=== PATIENT | female | born 1945 | race Caucasian/White ===

== ENCOUNTER 2017-06-15 20:26 | Inpatient (IN) ==
[2017-06-15 21:18] LABS: Basophils # 0.1 K/mm3 (0-0.2); Basophils % 0.7 % (0.1-2.0); Eosinophils # 0.3 K/mm3 (0.0-0.4); Eosinophils % 2.7 % (0.1-12.0); Mean Corpuscular HGB Conc 31.9 g/dL (31.8-35.4); Mean Corpuscular Hemoglobin 28.9 pg (27.0-31.2); Mean Corpuscular Volume 90.6 fl (81-99); Mean Platelet Volume 8.5 fl (7.4-10.4); Monocytes # 0.5 K/mm3 (0.1-1.0); Monocytes % 4.9 % (1.7-9.3); Neutrophils # 4.7 K/mm3 (1.8-7.8); Neutrophils % 49.8 % (37.0-80.0); Platelet Count 273 K/mm3 (142-424); Red Blood Count 5.19 M/mm3 (4.20-5.40); White Blood Count 9.5 K/mm3 (4.8-10.8)
[2017-06-15 21:38] LABS: Alanine Aminotransferase 22 U/L (12-78); Albumin Level 4.3 gm/dL (3.4-5.0); Albumin/Globulin Ratio 1.1 (1.1-1.8); Alkaline Phosphatase 84 U/L (46-116); Amylase 51 U/L (25-125); Anion Gap 13.5 mEq/L (5-15); Aspartate Amino Transferase 19 U/L (15-37); Bilirubin,Total 0.2 mg/dL (0.2-1.0); Blood Urea Nitrogen 20 mg/dL (7-18); Calcium 10.8 mg/dL (8.5-10.1); Carbon Dioxide 28 mmol/L (21.0-32.0); Chloride 103 mmol/L (98-107); Creatine Kinase 75 U/L (26-192); Globulin 3.9 gm/dl (1.3-3.2); Glucose 98 mg/dL (74-106); Lipase 166 u/L (73-393); Potassium 3.5 mmoL/L (3.5-5.1); Sodium 141 mmol/L (136-145); Total Protein,Serum 8.2 gm/dL (6.4-8.2)
--- NOTE | 2017-06-15 22:13 | Emergency Department Note ---
ED Disposition Clinical Impression: Elevated troponin I level Chest pain Qualifiers: Chest pain type: precordial pain Qualified Code(s): R07.2 - Precordial pain Hypertension Qualifiers: Hypertension type: unspecified Qualified Code(s): I10 - Essential (primary) hypertension Disposition: Admitted as Observation Condition on Discharge: Good Referrals: Boston Ziegler [Primary Care Provider] - - Critical Care Critical Care Time: No Attestation: On 06/15/17, the high probability of a clinically significant, sudden or life threatening deterioration of the following system(s) required my full and direct attention, intervention and personal management. The time I documented below is in addition to time spent performing reported procedures but includes the following listed in this critical care notation. Medical Decision Making - Medical Records Medical records reviewed: Yes: I reviewed the patient's medical records. - Mohan Inquiry Pt receiving controlled substance: No Vital Signs: 06/15/17 20:27 06/15/17 22:47 06/16/17 00:07 Temperature 98.5 F 98.7 F Temperature Source Oral Oral Pulse Rate [Left Radial] 88 76 82 Respiratory Rate 16 20 20 Blood Pressure [Right Arm] 226/116 172/98 161/76 Blood Pressure Mean [Right Arm] 152 122 104 Blood Pressure Source [Right Arm] Automatic Cuff Automatic Cuff Blood Pressure Position [Right Arm] Sitting Sitting 02 Sat by Pulse Oximetry 99 98 97 Oxygen Delivery Method Room Air Room Air - Lab Data Lab results reviewed: Yes: I reviewed the patient's lab results. Lab Results 06/15/17 20:55: WBC 9.5, RBC 5.19, Hgb 15.0, Hct 47.0, MCV 90.6, MCH 28.9, MCHC 31.9, RDW 13.0, Plt Count 273, MPV 8.5, Neut % (Auto) 49.8, Lymph % (Auto) 42.0 , Adams % (Auto) 4.9, Eos % (Auto) 2.7, Baso % (Auto) 0.7, Neut # (Auto) 4.7, Lymph # (Auto) 4.0, Adams # (Auto) 0.5, Eos # (Auto) 0.3, Baso # (Auto) 0.1 06/15/17 20:55: Sodium 141, Potassium 3.5, Chloride 103, Carbon Dioxide 28, Anion Gap 13.5, BUN 20 H, Creatinine 0.88, Estimated Creat Clear 67, Estimated GFR 63, Est GFR ( Amer) 77, Glucose 98, Calcium 10.8 H, Total Bilirubin 0.2, AST 19, ALT 22, Alkaline Phosphatase 84, Total Creatine Kinase 75, CK-MB ( CK-2) 1.2, CK-MB (CK-2) Rel Index 1.6, Troponin I < 0.02, Total Protein 8.2, Albumin 4.3, Globulin 3.9 H, Albumin/Globulin Ratio 1.1, Amylase 51, Lipase 166 06/16/17 00:15: Troponin I 0.28 H Result diagrams: 06/15/17 20:55 06/15/17 20:55 Orders (Tests/Meds): ED MEDICATIONS Generic Name Dose Route Start Last Admin Trade Name Freq PRN Reason Stop Dose Admin Nitroglycerin 0.4 mg 06/15/17 20:40 Nitrostat 0.4mg Sl Tablet SL 07/15/17 20:39 [id number] PRN Chest Pain Discontinued Medications Generic Name Dose Route Start Last Admin Trade Name Freq PRN Reason Stop Dose Admin Aspirin 243 mg 06/15/17 20:40 06/15/17 20:50 Aspirin 81mg Chewable Tablet PO 06/15/17 20:41 243 mg ONCE ONE Administration Iopamidol 75 ml 06/15/17 23:58 06/15/17 23:59 [id number]; 75ml Vial IV 06/15/17 23:59 75 ml ONCE ONE Administration Sodium Chloride 10 ml 06/15/17 23:58 06/15/17 23:59 Rad-Saline Flush 10ml Syringe IV 06/15/17 23:59 10 ml ONCE ONE Administration ORDERS Category Date Time Status CT chest w con Stat Cat Scan 06/15/17 22:15 Taken XR chest portable Stat Exams 06/15/17 20:40 Taken - Radiology Data #1 Image(s): Chest Image Reviewed: Yes I reviewed the patient's radiology image Preliminary Findings: Abnormal (sl wide mediastinum) - CT Data CT Scan: Chest Time Received: 01:[address] Reviewed: Yes: I have viewed the radiologist's interpretation Preliminary Findings: Normal/NAD - ECG Data Tracing #1 I reviewed this ECG and interpreted as documented below: Normal Sinus Rhythm: Yes Ischemic changes: non-specific ST-T wave changes - Physician Consults Physician Consulted: samantha Reason -: Admission Chest Pain HPI - General Chief Complaint: Chest Pain Stated Complaint: chest pain Time Seen by Provider: 06/15/17 22:04 Mode of Arrival: Ambulatory Source of Information: Patient, Spouse, Medical Record Limitations: No Limitations Description of Symptoms (Recalled from ER Triage Doc. by RN): chest pain/ indigestion, started about an hour ago - History of Present Illness HPI narrative: acute onset of ant to post chest pain with nausea - MD complaint: chest pain Onset (ago): hour(s) Duration: now resolved Activity at onset: during rest Pain location: epigastric Severity: moderate Quality: dull Pain radiation: back Relieving factors: nothing Exacerbating factors: nothing Risk Factors for CAD: Family Hx of CAD Treatments prior to or on arrival for Cardiac Chest Pain: none - CITLALLI Score Non-Stemi Age of patient: 65 yrs or more Number of risk factors for CAD: Presence of less than 3 Prior coronary artery stenosis(seen in coronary angiography): Less than 50% ST-Segment deviation on ECG (more than 1 min): Absent Prior aspirin intake: No ASA in the last 7 days Severe anginal chest pain: No or one episode in last 24 hours Elevated cardiac markers(CK-MB or troponin): Present Non-Stemi Risk Score: 2 - Related Data On Oral Contraceptives: No Home Medications Medication Instructions Recorded Confirmed Docusate Sodium [Colace] 100 mg PO DAILY 06/15/17 06/15/17 Allergies Allergy/AdvReac Type Severity Reaction Status Date / Time No Known Allergies Allergy Unverified 02/26/17 15:07 [facility] History I have reviewed the patient's past medical history: Yes Medical History: Denies:: Cancer, Diabetes Mellitus Type 1, Diabetes Mellitus Type 2, MRSA Amputation: No Fractures: No - Social History Alcohol Intake: current Alcohol Intake Frequency:: holidays/special occasions only - Psychiatric History Expresses thoughts of harming self/others: None Suicide Plan Description: No Plan ROS Obtained: Yes All systems reviewed & no additional complaints - Constitutional Constitutional: Denies fever(s) - Eyes Eyes: Denies change in vision - ENT Ears, Nose, Mouth, and Throat: Denies sore throat - Cardiovascular Cardiovascular: Reports chest pain at rest - Respiratory Respiratory: No cough - Gastrointestinal Gastrointestingal: Denies: abdominal pain - Musculoskeletal Musculoskeletal: Denies joint pain - Integumentary/Breasts Skin/Breast: Denies rash - Neurologic Neurologic: Denies seizure-like activity Physical Exam - General General appearance: in no apparent distress - Head Head exam: normocephalic - Eye Eye exam: Present: PERRL, EOMI - ENT ENT exam: Present: mucous membranes moist - Neck Neck exam: Present: trachea midline - Respiratory Respiratory exam: Present: normal lung sounds bilaterally. Absent: respiratory distress - Cardiovascular Cardiovascular exam: Present: regular rate, systolic murmur, +S4 - Abdominal Exam Abdominal exam: Present: soft - Extremities Exam Extremities exam: Present: full ROM - Neurological Exam Neurological exam: Present: alert, oriented X3, CN II-XII intact - Psychiatric Psychiatric exam: Present: normal affect - Skin Skin exam: Absent: rash
[2017-06-16 05:51] LABS: Basophils # 0.1 K/mm3 (0-0.2); Basophils % 0.7 % (0.1-2.0); Eosinophils # 0.1 K/mm3 (0.0-0.4); Eosinophils % 1.3 % (0.1-12.0); Hematocrit 44.2 % (37.0-47.0); Hemoglobin 14.1 g/dL (12.2-16.2); Lymphocytes # 2.2 K/mm3 (0.7-4.5); Lymphocytes % 24.3 K/mm3 (10-50); Mean Corpuscular HGB Conc 31.9 g/dL (31.8-35.4); Mean Platelet Volume 8.5 fl (7.4-10.4); Monocytes # 0.5 K/mm3 (0.1-1.0); Monocytes % 5.3 % (1.7-9.3); Neutrophils # 6.1 K/mm3 (1.8-7.8); Neutrophils % 68.4 % (37.0-80.0); Platelet Count 284 K/mm3 (142-424); Red Blood Count 4.86 M/mm3 (4.20-5.40); White Blood Count 8.9 K/mm3 (4.8-10.8)
[2017-06-16 06:32] LABS: Anion Gap 12.5 mEq/L (5-15); Potassium 4.5 mmoL/L (3.5-5.1)
[2017-06-16 07:00] LABS: Chol/HDL Ratio 4.1 (1-3.5)
--- NOTE | 2017-06-16 07:59 | History & Physical Report ---
*Admission Date: 06/16/17 *Chief complaint: Chest pain *History of present illness: 72-year-old white female with no significant past medical history, takes no medications, who came to the emergency department early this morning with complaints of fluttering and chest pain and some shortness of air. EKGs and general labs were unremarkable, but troponin level was slightly elevated. Given her character of the pain patient was admitted overnight. Through the night her enzymes have elevated and this morning her troponin is 0.99. She however continues to feel fairly comfortable although is having twinges of pressure. [facility] History I have reviewed the patient's past medical history: Yes Medical History: Denies:: Cancer, Diabetes Mellitus Type 1, Diabetes Mellitus Type 2, MRSA Other Surgeries: Yes: Appendectomy, Other (tonsilectomy) Amputation: No Fractures: No - *Social History Educational Level: Attended College Smoking Status: Former smoker Tobacco Type: cigarettes #Yrs smoked (if former smoker): 20 Smoking End Date: 1994 Alcohol Intake: current Alcohol Intake Frequency:: holidays/special occasions only Occupational Status: retired Housing: house Household Members: spouse - Psychiatric History Expresses thoughts of harming self/others: None Suicide Plan Description: No Plan *Family Hx:: Cancer, Stroke Review of Systems - Review of Systems Review of systems:: unable to obtain, other, pertinent systems reviewed and negative unless documented below - *Neurologic Denies seizure-like activity Meds Home Medications Medication Instructions Recorded Confirmed Type Docusate Sodium [Colace] 100 mg PO DAILY 06/15/17 06/16/17 History Allergies Allergy/AdvReac Type Severity Reaction Status Date / Time No Known Allergies Allergy Unverified 02/26/17 15:07 Exam Vital signs and Labs for Last 24 Hours: Temp Pulse Resp BP Pulse Ox 98.3 F 63 16 120/64 97 06/16/17 03:46 06/16/17 04:00 06/16/17 03:46 06/16/17 03:46 06/16/17 03:46 Laboratory Results - last 24 hr 06/16/17 05:10: Sodium 142, Potassium 4.5 D, Chloride 105, Carbon Dioxide 29, Anion Gap 12.5, BUN 16, Creatinine 0.74, Estimated Creat Clear 70, Estimated GFR 77, Est GFR ( Amer) 94 D, Glucose 102, Troponin I 0.99 H, Triglycerides 73, Cholesterol 243 H, LDL Cholesterol 169 H, VLDL Cholesterol 15 , HDL Cholesterol 59, Cholesterol/HDL Ratio 4.1 H 06/16/17 05:10: WBC 8.9, RBC 4.86, Hgb 14.1, Hct 44.2, MCV 91.0, MCH 29.0, MCHC 31.9, RDW 13.0, Plt Count 284, MPV 8.5, Neut % (Auto) 68.4, Lymph % (Auto) 24.3 , [place] % (Auto) 5.3, Eos % (Auto) 1.3, Baso % (Auto) 0.7, Neut # (Auto) 6.1, Lymph # (Auto) 2.2, [place] # (Auto) 0.5, Eos # (Auto) 0.1, Baso # (Auto) 0.1 I & O for Last 24 hours: Intake & Output 06/13/17 06/14/17 06/15/17 06/16/17 11:59 11:59 11:59 11:59 Intake Total 180 / 180 Balance 180 / 180 Weight 189 lb 2 oz Narrative: Patient is pleasant, talkative, in no distress, minimally obese. Heart rate regular, occasional ectopic beats. EKG shows frequent PVCs this morning, lungs are clear, abdomen soft, no ankle edema. Good pulses in all 4 extremities. H&P: Result - Labs Labs: Short CBC 06/16/17 Range/Units 05:10 WBC 8.9 (4.8-10.8) K/mm3 Hgb 14.1 (12.2-16.2) g/dL Hct 44.2 (37.0-47.0) % Plt Count 284 (142-424) K/mm3 BMP 06/16/17 05:10 Sodium 142 Potassium 4.5 D Chloride 105 Carbon Dioxide 29 BUN 16 Creatinine 0.74 Glucose 102 Cardiac Enzymes 06/16/17 Range/Units 05:10 Troponin I 0.99 H (0.00-0.06) ng/ml Assessment and Plan (1) Non-STEMI (non-ST elevated myocardial infarction) Current visit: Yes Status: Acute Category: Medical Code(s): I21.4 - Non- ST elevation (NSTEMI) myocardial infarction Non-STEMI now with EKG changes and continuing pain. Cardiology consult for left heart catheterization.
--- NOTE | 2017-06-16 13:31 | Pharmacy Consult Notes ---
[facility] Pharmacy VTE Monitoring - Patient Demographics Admission date: 06/16/17 Report Date: 06/16/17 Time: 13:31 Allergies/Adverse Reactions: Patient Allergies No Known Allergies Allergy (Unverified 02/26/17 15:07) Height: 1.57 m Weight: 85.786 kg Patient Problems: Current Active Problems Chest pain (Acute) Elevated troponin I level (Acute) Hypertension (Acute) Non-STEMI (non-ST elevated myocardial infarction) (Acute) - VTE Risk Labs: VTE Related Lab Results Hgb 14.1 g/dL (12.2-16.2) 06/16/17 05:10 Hct 44.2 % (37.0-47.0) 06/16/17 05:10 Plt Count 284 K/mm3 (142-424) 06/16/17 05:10 BUN 16 mg/dL (7-18) 06/16/17 05:10 Creatinine 0.74 mg/dL (0.55-1.02) 06/16/17 05:10 Estimated Creat Clear 70 mL/min (0-300) 06/16/17 05:10 Was VTE Risk Assessment Performed: Yes VTE Score: 2 - Prophylaxis VTE Prophylaxis Ordered?: Yes Types of VTE Prophylaxis: TEDS Knee High Location of Applied Device: Bilateral Lower Extremeties
--- NOTE | 2017-06-17 08:41 | Discharge Summary ---
General - General Admission date: 06/16/17 Discharge date: 06/17/17 HPI HPI: 72-year-old white female with no significant past medical history, takes no medications, who came to the emergency department early this morning with complaints of fluttering and chest pain and some shortness of air. EKGs and general labs were unremarkable, but troponin level was slightly elevated. Given her character of the pain patient was admitted overnight. Through the night her enzymes have elevated and this morning her troponin is 0.99. She however continues to feel fairly comfortable although is having twinges of pressure. Hospital Course Hospital Course: Patient was admitted, ruled in for myocardial infarction with elevated troponin and evidence of PVCs. Taken to cardiac catheterization the day after admission. Please note assessment and plan from cardiology as copied in the document below.: ANGIOGRAPHIC RESULTS: 1. The left main artery normal 2. The left anterior descending artery has proximal concentric 80% stenosis which extends into the first diagonal artery. Distal to the first diagonal artery is a 40-50% stenosis followed by an additional 30-40% stenosis. The mid LAD is corkscrew tortuous vessel. The first diagonal artery is a large branch and has an ostial 90% stenosis with a ruptured plaque and evidence of clot. 3. The circumflex artery is a large nondominant vessel and has proximal 30% stenoses 4. The right coronary artery is a large dominant vessel and has an ostial 80% stenosis. This vessel has 30-40% eccentric stenoses 5. The TUCKER ventriculogram reveals normal 65% 6. The left ventricular end-diastolic pressure 10 mmHg IMPRESSION: 1. Severe proximal LAD disease extending into the large first diagonal artery 2. Severe ostial dominant right coronary artery disease 3. Successful stenting of the proximal to mid LAD severe disease reduced to 0% with 1 drug-eluting stent with successful stenting from the proximal LAD extending into the first diagonal artery and a bifurcating manner 4. Successful stenting of the ostial dominant right coronary artery severe disease reduced to 0% with 1 drug-eluting stent 5. Normal ejection fraction 6. Normal left ventricular end-diastolic pressure 7. Mild to moderate persistent nonflow limiting disease PLAN: 1. Brilinta 90 mg twice a day and aspirin 81 mg daily for one year 2. LDL less than 55 3. Cardiac rehabilitation 4. Avoidance of tobacco products 5. Risk factor modification 6. Beta blockers and jessy inhibitors Patient did well post-cath, this morning she is doing fantastic. We will discharge her home with medicines as recommended above. I will only start low- dose JESSY inhibitor given her low blood pressure, in the future beta-blockers may be added. She will see her primary physician this week and cardiology next week. Objective Vital signs: Temp Pulse Resp BP Pulse Ox 98 F 73 20 98/56 97 06/17/17 04:00 06/17/17 07:38 06/17/17 07:32 06/17/17 07:32 06/17/17 07:38 Narrative: Alert, pleasant, oriented, abdomen soft, heart rate regular, lungs are clear, no edema. DS: Diagnosis - Discharge Diagnosis (1) Non-STEMI (non-ST elevated myocardial infarction) Status: Acute Discharge Plan - Patient Discharge Instructions ACTIVITY: Continue current activity, No heavy lifting DIET: continue same diet Patient Instructions: Heart Attack, Cardiac Catheterization, High Blood Pressure, DI for Chest Pain, Surgical Site Infection - Follow up Plan Follow up with: Boston Ziegler [Primary Care Provider] - 06/20/17 Britton Cali MD [Staff Physician] - 1 week Disposition: Home, Self-Custodial Medications: Home Medications Medication Instructions Recorded Confirmed Type Docusate Sodium [Colace] 100 mg PO DAILY 06/15/17 06/16/17 History Amoxicillin [Amoxicillin 875MG Tab] 875 mg PO Q12H 06/17/17 06/17/17 History Prescriptions/Medication Reconciliation: New Atorvastatin Calcium [Lipitor 40mg Tablet] 40 mg PO HS #30 tab Lisinopril [Lisinopril 2.5mg Tab] 2.5 mg PO DAILY #30 tab Pantoprazole Sodium [Protonix 40mg tablet] 40 mg PO DAILY #30 tablet. Ticagrelor [Brilinta 90mg Tablet] 90 mg PO BID #60 tab Aspirin [Aspirin 81mg EC Tab] 81 mg PO DAILY #30 tablet.dr Celis Docusate Sodium [Colace] 100 mg PO DAILY Discontinued Amoxicillin [Amoxicillin 875MG Tab] 875 mg PO Q12H
--- NOTE | 2017-06-17 09:01 | Consult Report ---
History of Present Illness Consult date: 06/17/17 Requesting physician: Jose Schmid Consult reason: chest pain Chief complaint: Chest pain Additional Medical History:: 1. Tobacco use a. Ex-smoker: stopped in 1993. 2. History of Hyperlipidemia a. Taken statins in past: developed muscle aches, but is willing to re-try 3. History of Rheumatic fever (childhood) 4. No history of Hypertension or Coronary Artery Disease. 5. Heart catherization (06/16/17) ANGIOGRAPHIC RESULTS: 1. The left main artery normal 2. The left anterior descending artery has proximal concentric 80% stenosis which extends into the first diagonal artery. Distal to the first diagonal artery is a 40-50% stenosis followed by an additional 30-40% stenosis. The mid LAD is corkscrew tortuous vessel. The first diagonal artery is a large branch and has an ostial 90% stenosis with a ruptured plaque and evidence of clot. 3. The circumflex artery is a large nondominant vessel and has proximal 30% stenoses 4. The right coronary artery is a large dominant vessel and has an ostial 80% stenosis. This vessel has 30-40% eccentric stenoses 5. The TUCKER ventriculogram reveals normal 65% 6. The left ventricular end-diastolic pressure 10 mmHg IMPRESSION: 1. Severe proximal LAD disease extending into the large first diagonal artery 2. Severe ostial dominant right coronary artery disease 3. Successful stenting of the proximal to mid LAD severe disease reduced to 0% with 1 drug-eluting stent with successful stenting from the proximal LAD extending into the first diagonal artery and a bifurcating manner 4. Successful stenting of the ostial dominant right coronary artery severe disease reduced to 0% with 1 drug-eluting stent 5. Normal ejection fraction 6. Normal left ventricular end-diastolic pressure 7. Mild to moderate persistent nonflow limiting disease PLAN: 1. Brilinta 90 mg twice a day and aspirin 81 mg daily for one year 2. LDL less than 55 3. Cardiac rehabilitation 4. Avoidance of tobacco products 5. Risk factor modification 6. Beta blockers and pat inhibitors History of present illness: 72-year-old white female admitted 06/15/17 through the Emergency department for chest pain. Pt vague in her description of the chest pain episode. Pt complained fluttering feeling in her chest along with shortness of breath. Pt has no significant medical history nor daily medication regimen. EKGs on admission was unremarkable. Troponin level was slightly elevated at 0.99. Given her episode of chest pain and slightly elevated Troponin, pt was admitted over night for further evaluation. Heart catherization was performed on pt, follow day (06/16/17) which revealed three multi-vessel stenting. 24 hours after stenting, pt is doing well. Pt denies chest pain or shortness of breath. Right radial access noted with no swelling or drainage. Pt denies pain at the site of access. [facility] History Medical History: Denies:: Cancer, Diabetes Mellitus Type 1, Diabetes Mellitus Type 2, MRSA Other Surgeries: Yes: Appendectomy, Other (tonsilectomy) Amputation: No Fractures: No - *Social History Educational Level: Attended College Smoking Status: Former smoker Tobacco Type: cigarettes #Yrs smoked (if former smoker): 20 Smoking End Date: 1994 Alcohol Intake: current Alcohol Intake Frequency:: holidays/special occasions only Occupational Status: retired Housing: house Household Members: spouse - Psychiatric History Expresses thoughts of harming self/others: None Suicide Plan Description: No Plan *Family Hx:: Cancer, Stroke Meds Home Medications Medication Instructions Recorded Confirmed Type Docusate Sodium [Colace] 100 mg PO DAILY 06/15/17 06/16/17 History Allergies Allergy/AdvReac Type Severity Reaction Status Date / Time No Known Allergies Allergy Unverified 02/26/17 15:07 Review of Systems - Constitutional Reports fatigue, Reports weakness - *Cardiovascular Reports chest pain, Reports shortness of breath, Reports shortness of breath with activity, Denies generalized swelling, Denies lightheadedness - *Respiratory Reports shortness of breath, Reports shortness of breath with activity, Denies cough, Denies stridor, Denies wheezing - *Gastrointestinal Denies abdominal pain - *Neurologic Denies dizziness, Denies lack of coordination, Denies seizure-like activity Exam Vital signs and Labs for Last 24 Hours: Temp Pulse Resp BP Pulse Ox 98 F 73 20 98/56 97 06/17/17 04:00 06/17/17 07:38 06/17/17 07:32 06/17/17 07:32 06/17/17 07:38 I & O for Last 24 hours: Intake & Output 06/14/17 06/15/17 06/16/17 06/17/17 23:59 23:59 23:59 23:59 Intake Total 600 / 780 780 / 780 Output Total 250 / 250 300 / 300 Balance 350 / 530 480 / 480 Weight 189 lb 2 oz 189 lb 1 oz - Constitutional no acute distress, average body habitus - *Routine Neck Exam Present: supple, full ROM, normal carotid upstroke, trachea midline. Absent: JVD, carotid bruit - *Routine Respiratory Exam Present: CTA bilaterally. Absent: rhonchi, stridor, wheezes, crackles - *Routine Cardiovascular Exam Present: Normal S1, Normal S2. Absent: murmur, gallop, rubs - *Routine Abdominal Exam Present: soft. Absent: tenderness, guarding - *Routine Extremities Exam Present: full ROM, pulses intact, normal capillary refill. Absent: edema - *Routine Neurological Exam Present: alert, oriented X3, CN II-XII intact, normal speech. Absent: tremors Assessment and Plan (1) Non-STEMI (non-ST elevated myocardial infarction) Current visit: Yes Status: Acute Category: Medical Code(s): I21.4 - Non- ST elevation (NSTEMI) myocardial infarction (2) Hyperlipidemia Current visit: Yes Status: Acute Category: Medical Code(s): E78.5 - Hyperlipidemia, unspecified - Assessment and plan all Dx Assessment and Plan for all problems:: Plan: 1. Continue dual anti-coagulant therapy (Aspirin and Brilanta). 2. Add statin to daily regimen for Hyperlipidemia. 3. Follow up in one week with Cardiology. 4. Recommend cardiac rehab. 5. Obtain Echocardigram on outpatient bases.
== END 2017-06-17 09:53 | disposition home or self-care (01) ==
LOC: 2ND 20:26 → ER 20:26 → 2ND 06-16 01:28
PROVIDERS: ADMIT Internal Medicine Adolescent Medicine; ATTEND Internal Medicine Adolescent Medicine

== ENCOUNTER 2017-06-27 10:27 | Outpatient (RCR) | payer MEDICARE, OTHER, SELFPAY | END 2017-08-26 14:55 | disposition home or self-care (01) | LOC: PT 10:27 | PROVIDERS: Family Provider Internal Medicine; PCP Internal Medicine; Visit Provider Internal Medicine | DX: Z95.5 Presence of coronary angioplasty implant and graft (principal) | CPT/HCPCS: 93798 ==

== ENCOUNTER → 2017-06-29 10:34 | Outpatient (CLI) | payer MEDICARE, OTHER, SELFPAY ==
[2017-06-29 11:04] LABS: Troponin I < 0.02 ng/ml (0.00-0.06)
== END ==
PROVIDERS: PCP Internal Medicine; Visit Provider Internal Medicine
DX: R07.9 Chest pain, unspecified (principal); I25.10 Atherosclerotic heart disease of native coronary artery without angina pectoris; Z95.5 Presence of coronary angioplasty implant and graft
CPT/HCPCS: 36415; 84484; 93005

== ENCOUNTER → 2017-07-25 07:48 | Outpatient (CLI) | payer MEDICARE, OTHER, SELFPAY ==
--- NOTE | 2017-07-25 09:18 | NM_ITS ---
History and Indications: Coronary disease, previous [place], hypertension, hyperlipidemia, chest pain, palpitations and fatigue Procedure: Patient received a 0.4 mg Lexiscan, resting blood pressure was 150/53, resting heart rate was 67 bpm, with Lexiscan maximum heart rate achieved was 91 bpm which is less than 85% of the maximum predicted heart rate and a blood pressure was 129/54. With Lexiscan patient complained of shortness of breath. Electrocardiogram: Resting echocardiogram showed sinus rhythm, with Lexiscan treatment premature ventricular complex seen, less than 1.[address] segment depression noted from the baseline EKG. The EKG portion of the Lexiscan Myoview is nondiagnostic. Cardiac stress and resting SPECT images: Cardiac stress and resting SPECT images were obtained using technetium 99 Myoview 31.7 mCi at stress gated 10.3 mCi at rest, gated SPECT further analysis of segmental wall motion and calculation of the ejection fraction also done. Cardiac stress and rest SPECT images show uniform myocardial activity without any segmental perfusion abnormality, computer derived ejection fraction over 65% with no obvious regional wall motion abnormality, right ventricle is normal size and contractility. Conclusion: 1. The EKG portion of the Lexiscan Myoview is nondiagnostic. 2. No obvious scintigraphic evidence of reversible ischemia seen, computer derived ejection fraction is over 65% with no obvious regional wall motion abnormality, right ventricle is normal size and contractility.
--- NOTE | 2017-07-25 10:35 | HMH.ITSHM ---
ALVIN ASA ATORVASATATIN LISINOPRIL METOPROLOL AMLODIPINE
== END ==
PROVIDERS: Family Provider Internal Medicine; PCP Internal Medicine; Visit Provider Internal Medicine
DX: I25.10 Atherosclerotic heart disease of native coronary artery without angina pectoris (principal); I11.9 Hypertensive heart disease without heart failure; E78.5 Hyperlipidemia, unspecified; Z95.5 Presence of coronary angioplasty implant and graft; Z86.79 Personal history of other diseases of the circulatory system
CPT/HCPCS: 78452; 93017; A9502; J2785

== ENCOUNTER → 2017-07-29 15:08 | Outpatient (REF) | payer MEDICARE, OTHER, SELFPAY | LOC: LAB 15:08 | PROVIDERS: Visit Provider Obstetrics & Gynecology | DX: R10.9 Unspecified abdominal pain (principal) | CPT/HCPCS: 87086 ==

== ENCOUNTER → 2017-10-23 11:04 | Outpatient (REF) | payer MEDICARE, OTHER, SELFPAY ==
[2017-10-23 11:58] LABS: Alanine Aminotransferase 26 U/L (12-78); Albumin Level 3.9 gm/dL (3.4-5.0); Albumin/Globulin Ratio 1.4 (1.1-1.8); Alkaline Phosphatase 75 U/L (46-116); Anion Gap 13.7 mEq/L (5-15); Aspartate Amino Transferase 14 U/L (15-37); Bilirubin,Total 0.5 mg/dL (0.2-1.0); Blood Urea Nitrogen 19 mg/dL (7-18); Carbon Dioxide 27 mmol/L (21.0-32.0); Chloride 107 mmol/L (98-107); Chol/HDL Ratio 2.8 (1-3.5); Cholesterol 135 mg/dL (140-200); Estimated Glomerular Filt Rate 62 ml/min (>60); GFR (African American) 75 ML/MIN (>60); Globulin 2.8 gm/dl (1.3-3.2); Glucose 84 mg/dL (74-106); HDL Cholesterol 49 mg/dL (29-89); LDL Cholesterol 71 mg/dL (0-130); Potassium 4.7 mmoL/L (3.5-5.1); Sodium 143 mmol/L (136-145); Total Protein,Serum 6.7 gm/dL (6.4-8.2); Triglycerides 73 mg/dL (30-200); VLDL Cholesterol 15 mg/dL (0-40)
[2017-10-24 10:14] LABS: Vitamin B12 335 pg/mL (232-1245)
== END ==
LOC: LAB 11:04
PROVIDERS: Visit Provider Internal Medicine
DX: I10 Essential (primary) hypertension (principal); E78.5 Hyperlipidemia, unspecified; M15.0 Primary generalized (osteo)arthritis; M47.812 Spondylosis without myelopathy or radiculopathy, cervical region
CPT/HCPCS: 80053; 80061; 82607; 84443

== ENCOUNTER → 2017-10-29 16:16 | Outpatient (CLI) | payer MEDICARE, OTHER, SELFPAY | PROVIDERS: PCP Internal Medicine; Visit Provider Internal Medicine | DX: I25.118 Atherosclerotic heart disease of native coronary artery with other forms of angina pectoris (principal); I11.9 Hypertensive heart disease without heart failure; I49.3 Ventricular premature depolarization; I49.9 Cardiac arrhythmia, unspecified; Z95.5 Presence of coronary angioplasty implant and graft | CPT/HCPCS: 93225; 93226 ==

== ENCOUNTER → 2017-11-01 08:27 | Outpatient (CLI) | payer MEDICARE, OTHER, SELFPAY ==
--- NOTE | 2017-11-01 08:29 | CA_ITS ---
PROCEDURE: 2-D M-mode and color Doppler study INDICATIONS FOR THE TEST: Chest pain COPD Heart MurmurX Tobacco Smoking Palpitations Fatigue Syncope Edema HypertensionXXDiabetes Mellitus Rheumatic FeverX SOB YANEZ Obesity HyperlipidemiaX Family History HD Additional History CAD, STENTS 06/26,BIGEMINY PATIENT INFORMATION HEIGHT: 62 WEIGHT:175 GENDER: Female B/P:144/71 2-D/M-MODE INTERPRETATION: 2-D MEASUREMENTS OBSERVED VALUES IN CMS Right Ventricular Dimension (RVDd) 1.6 Interventricular Septum (Thickness)(IVsd) .9 Left Ventricular Internal Dimensions(LVIDd) 5.5 Left Ventricular Posterior Wall (Thickness)(LVPWd) .9 Aortic Root 3.1 Aortic Cusp Separation 1.4 Left Atrial Dimensions (LAD) 3.5 2D 1. Left atrium is mildly enlarged, left ventricle is normal size, left ventricle wall thickness is upper limit of the normal, there is preserved left ventricular systolic function, visually estimated ejection fraction 55% with no obvious regional wall motion abnormality. 2. The right atrium and right ventricle are qualitatively mildly enlarged with normal contractility. 3. The aortic valve is minimally thickened and fibrosed. 4. The mitral and tricuspid valve leaflets are minimally thickened. 5. The pulmonic valve is poorly visualized. 6. No significant pericardial effusion noted. DOPPLER INTERROGATION: Doppler interrogation of the aortic, mitral and tricuspid valve reveals presence of mild mitral and tricuspid regurgitation, tricuspid regurgitation jet velocity is insufficient for calculation of the right ventricular systolic pressure, grade 1 diastolic dysfunction seen without tissue Doppler evidence of raised left atrial pressure. CONCLUSION: 1. Mildly enlarged left atrium, normal left ventricular size, visually estimated ejection fraction 55% with no obvious regional wall motion abnormality, grade 1 diastolic dysfunction seen without tissue Doppler evidence of raised left atrial pressure. 2. Mildly enlarged right ventricle with normal contractility. 3. Mild mitral and tricuspid regurgitation 4. No significant pericardial effusion noted.
== END ==
PROVIDERS: Family Provider Internal Medicine; PCP Internal Medicine; Visit Provider Internal Medicine
DX: I25.118 Atherosclerotic heart disease of native coronary artery with other forms of angina pectoris (principal)
CPT/HCPCS: 93306

== ENCOUNTER → 2018-06-25 10:03 | Outpatient (CLI) | payer MEDICARE, OTHER, SELFPAY | PROVIDERS: PCP Internal Medicine; Visit Provider Internal Medicine Cardiovascular Disease | DX: I25.118 Atherosclerotic heart disease of native coronary artery with other forms of angina pectoris (principal) | CPT/HCPCS: 93306 ==

== ENCOUNTER 2018-07-13 21:18 | Observation (INO) ==
[2018-07-13 21:32] LABS: Basophils # 0.1 K/mm3 (0-0.2); Basophils % 0.6 % (0.1-2.0); Eosinophils # 0.3 K/mm3 (0.0-0.4); Eosinophils % 3.3 % (0.1-12.0); Hemoglobin 12.5 g/dL (12.2-16.2); Lymphocytes # 3.8 K/mm3 (0.7-4.5); Lymphocytes % 41.1 % (10-50); Mean Corpuscular HGB Conc 32.8 g/dL (31.8-35.4); Mean Corpuscular Hemoglobin 29.5 pg (27.0-31.2); Mean Corpuscular Volume 89.8 fl (81-99); Mean Platelet Volume 8.3 fl (7.4-10.4); Monocytes # 0.5 K/mm3 (0.1-1.0); Monocytes % 5.7 % (1.7-9.3); Neutrophils # 4.5 K/mm3 (1.8-7.8); Neutrophils % 49.2 % (37.0-80.0); Platelet Count 245 K/mm3 (142-424); Red Blood Count 4.23 M/mm3 (4.20-5.40); White Blood Count 9.1 K/mm3 (4.8-10.8)
[2018-07-13 21:48] LABS: Alanine Aminotransferase 28 U/L (12-78); Albumin/Globulin Ratio 1.2 (1.1-1.8); Alkaline Phosphatase 73 U/L (46-116); Anion Gap 11.5 mEq/L (5-15); Aspartate Amino Transferase 16 U/L (15-37); Bilirubin,Total 0.3 mg/dL (0.2-1.0); Blood Urea Nitrogen 28 mg/dL (7-18); C-Reactive Protein 0.5 mg/L (0.0-0.9); Calcium 9.1 mg/dL (8.5-10.1); Carbon Dioxide 28 mmol/L (21.0-32.0); Chloride 105 mmol/L (98-107); Globulin 3.4 gm/dl (1.3-3.2); Glucose 103 mg/dL (74-106); Potassium 3.5 mmoL/L (3.5-5.1); Sodium 141 mmol/L (136-145); Total Protein,Serum 7.4 gm/dL (6.4-8.2)
--- NOTE | 2018-07-13 22:26 | Emergency Department Note ---
ED Disposition Clinical Impression: Hypertensive emergency, TIA (transient ischemic attack) Obesity Qualifiers: Obesity type: due to excess calories Obesity classification: adult class 1 (BMI 30 - 34.9) Serious obesity comorbidity presence: with serious comorbidity Body mass index: BMI 31.0-31.9 Qualified Code(s): E66.09 - Other obesity due to excess calories Disposition: Admitted as Observation Condition on Discharge: Good - Critical Care Critical Care Time: No Attestation: On 07/13/18, the high probability of a clinically significant, sudden or life threatening deterioration of the following system(s) required my full and direct attention, intervention and personal management. The time I documented below is in addition to time spent performing reported procedures but includes the following listed in this critical care notation. Medical Decision Making - Medical Records Medical records reviewed: Yes: I reviewed the patient's medical records. - Mohan Inquiry Pt receiving controlled substance: No Vital Signs: 07/13/18 22:03 Temperature 97.8 F Temperature Source Oral Pulse Rate [Right] 77 Respiratory Rate 18 Blood Pressure [Right Arm] 153/118 H Blood Pressure Mean [Right Arm] 129 Blood Pressure Source [Right Arm] Automatic Cuff Blood Pressure Position [Right Arm] Supine 02 Sat by Pulse Oximetry 98 Oxygen Delivery Method Room Air - Lab Data Lab results reviewed: Yes: I reviewed the patient's lab results. Lab Results 07/13/18 21:25: WBC 9.1, RBC 4.23, Hgb 12.5, Hct 38.0, MCV 89.8, MCH 29.5, MCHC 32.8, RDW 13.0, Plt Count 245, MPV 8.3, Neut % (Auto) 49.2, Lymph % (Auto) 41.1, [place] % (Auto) 5.7, Eos % (Auto) 3.3, Baso % (Auto) 0.6, Neut # (Auto) 4.5, Lymph # (Auto) 3.8, [place] # (Auto) 0.5, Eos # (Auto) 0.3, Baso # (Auto) 0.1 07/13/18 21:25: Sodium 141, Potassium 3.5, Chloride 105, Carbon Dioxide 28, Anion Gap 11.5, BUN 28 H, Creatinine 0.84, Estimated Creat Clear 63, Estimated GFR 67, Est GFR ( Amer) 81, Glucose 103, Calcium 9.1, Total Bilirubin 0.3, AST 16, ALT 28, Alkaline Phosphatase 73, Troponin I < 0.02, C-Reactive Protein 0.5, Total Protein 7.4, Albumin 4.0, Globulin 3.4 H, Albumin/Globulin Ratio 1.2 Result diagrams: 07/13/18 21:25 07/13/18 21:25 Orders (Tests/Meds): ED MEDICATIONS Generic Name Dose Route Start Last Admin Trade Name Freq PRN Reason Stop Dose Admin Sodium Chloride 1,000 mls @ 999 mls/hr 07/13/18 21:30 07/13/18 21:35 Sod Chlor 0.9% 1000ml Bag IV 07/13/18 22:30 999 mls/hr .Q1H1M SHAYLEE Administration Discontinued Medications Generic Name Dose Route Start Last Admin Trade Name Freq PRN Reason Stop Dose Admin Aspirin 324 mg 07/13/18 21:22 07/13/18 21:35 Aspirin 81mg Chewable Tablet PO 07/13/18 21:23 324 mg ONCE ONE Administration Ketorolac Tromethamine 30 mg 07/13/18 21:23 07/13/18 21:35 Toradol 30mg/Ml Vial IV 07/13/18 21:24 30 mg ONCE ONE Administration Ondansetron HCl 4 mg 07/13/18 21:23 07/13/18 21:35 Zofran 4mg/2ml Vial IV 07/13/18 21:24 4 mg ONCE ONE Administration ORDERS Category Date Time Status CT head/brain wo con Stat Cat Scan 07/13/18 21:26 Taken Chest XR 2 view (NOT portable) [XR chest 2V] Stat Exams 07/13/18 21:21 Taken - Radiology Data #1 Image(s): Chest Image Reviewed: Yes I reviewed the patient's radiology image Preliminary Findings: Normal/NAD - CT Data CT Scan: Head Time Received: 22:[address] Reviewed: Yes: I have viewed the radiologist's interpretation Preliminary Findings: Normal/NAD - ECG Data Tracing #1 Normal Sinus Rhythm: Yes Arrhythmias present: PVC's Ischemic changes: non-specific ST-T wave changes ECG compared to prior tracings: there are no significant changes - Physician Consults Physician Consulted: artemio Reason -: Admission Neuro HPI - General Chief Complaint: Extremity Problem,Nontraumatic Stated Complaint: Numbness in Hands Time Seen by Provider: 07/13/18 22:20 Mode of Arrival: Wheelchair Source of Information: Patient, Spouse, Medical Record Limitations: No Limitations Description of Symptoms (Recalled from ER Triage Doc. by RN): Pt states she is having HTN, Nausea, with bilat hand numbness - History of Present Illness HPI Narrative: pt with episode of bilat forearm tightness and tingling in hand assoc with elevated bp at home but no chest pain - no speech sx and no visual sx and no motor loss - no fever/rash or trauma - no prev episodes Onset (ago): hour(s) Timing confirmed by: spouse Location: left arm, right arm History of same: No Severity: moderate Context: sudden onset On Anticoagulants: Yes Associated symptoms: denies other symptoms Treatments Prior to Arrival: none - Related Data Home Medications: Home Medications Medication Instructions Recorded Confirmed Aspirin [Aspirin 81mg EC Tab] 81 mg PO DAILY 06/19/17 07/13/18 Lisinopril [Lisinopril 2.5mg Tab] 2.5 mg PO DAILY 06/19/17 07/13/18 docusate sodium 100 mg capsule 100 mg PO QHS 06/25/17 07/13/18 Bisoprolol Fumarate [Bisoprolol 2.5 mg PO DAILY 01/28/18 07/13/18 5mg Tablet] Clopidogrel Bisulfate [Plavix 75mg 75 mg PO DAILY 01/28/18 07/13/18 Tab] pantoprazole 40 mg tablet,delayed 40 mg PO .every other day tab 06/19/18 07/13/18 release atorvastatin 10 mg tablet 20 mg PO DAILY tab 07/10/18 07/13/18 Allergies/Adverse Reactions: Allergies Allergy/AdvReac Type Severity Reaction Status Date / Time No Known Allergies Allergy Verified 07/10/18 11:51 Stroke Alert/NIH Score - LOC Stroke Alert: No [facility] History - Hepatitis A Screen Drug use history?: No High risk sexual behaviors?: No History of sexually transmitted infection?: No Currently employed?: No Childcare worker?: No Do you have indoor plumbing?: Yes Do you have electricity?: Yes Attestation statement:: This patient has been screened for Hepatitis A risk factors. I have reviewed the patient's past medical history: Yes Medical History: Reports:: Coronary Artery Disease, Heart Murmur, Hyperlipidemia, Hypertension Denies:: Anxiety, Asthma, Cancer, Diabetes Mellitus Type 1, Diabetes Mellitus Type 2, MRSA Comment: heart attack , 06/16/17, right shoulder tear, repair and left knee repair Laterality Cases: Left: Lumpectomy, Right: Arthroscopy Shoulder, Bilateral: Tonsillectomy Other Surgeries: Yes: Appendectomy, Cardiac Catheterization, Coronary Stent, Hysterectomy-Total, Other Amputation: No Fractures: No - Social History Smoking Status: Former smoker Tobacco Type: cigarettes #Yrs smoked (if former smoker): 20 Alcohol Intake: never Alcohol Intake Frequency:: holidays/special occasions only Substance Use Type: denies use Occupational Status: retired Housing: house Household Members: spouse - Psychiatric History Expresses thoughts of harming self/others: None Suicide Plan Description: No Plan Pschychiatric History:: Denies:: Anxiety Family Hx:: Cancer, Stroke ROS Obtained: Yes All systems reviewed & no additional complaints - Constitutional Constitutional: Denies fever(s) - Eyes Eyes: Denies change in vision - ENT Ears, Nose, Mouth, and Throat: Denies sore throat - Cardiovascular Cardiovascular: Denies chest pain at rest, Denies dyspnea - Respiratory Respiratory: No cough - Gastrointestinal Gastrointestingal: Denies: abdominal pain - Genitourinary Female Genitourinary: Denies flank pain, Denies hematuria - Musculoskeletal Musculoskeletal: Denies joint pain, Denies joint swelling - Integumentary/Breasts Skin/Breast: Denies rash - Neurologic Neurologic: Reports as per HPI, Denies abnormal speech, Denies confusion, Denies dizziness, Denies focal weakness, Denies headache(s), Denies seizure-like activity, Denies sensory deficit Physical Exam - General General appearance: alert, obese - Head Head exam: normocephalic - Eye Eye exam: Present: PERRL, EOMI - ENT ENT exam: Present: mucous membranes moist - Neck Neck exam: Present: trachea midline, other (no def bruit ) - Respiratory Respiratory exam: Present: normal lung sounds bilaterally. Absent: respiratory distress - Cardiovascular Cardiovascular exam: Present: regular rate, systolic murmur, +S4 - Abdominal Exam Abdominal exam: Present: soft - Extremities Exam Extremities exam: Present: full ROM - Neurological Exam Neurological exam: Present: alert, oriented X3, CN II-XII intact. Absent: motor sensory deficit - Psychiatric Psychiatric exam: Present: normal affect - Skin Skin exam: Absent: rash
[2018-07-14 05:13] LABS: Basophils # 0.1 K/mm3 (0-0.2); Basophils % 0.7 % (0.1-2.0); Eosinophils # 0.3 K/mm3 (0.0-0.4); Eosinophils % 3.9 % (0.1-12.0); Hematocrit 34.4 % (37.0-47.0); Hemoglobin 11.4 g/dL (12.2-16.2); Lymphocytes # 2.4 K/mm3 (0.7-4.5); Lymphocytes % 36.2 % (10-50); Mean Corpuscular Hemoglobin 29.7 pg (27.0-31.2); Mean Corpuscular Volume 89.9 fl (81-99); Mean Platelet Volume 8.8 fl (7.4-10.4); Monocytes # 0.4 K/mm3 (0.1-1.0); Monocytes % 5.7 % (1.7-9.3); Neutrophils # 3.5 K/mm3 (1.8-7.8); Neutrophils % 53.5 % (37.0-80.0); Platelet Count 196 K/mm3 (142-424); Red Blood Count 3.83 M/mm3 (4.20-5.40); White Blood Count 6.6 K/mm3 (4.8-10.8)
[2018-07-14 05:32] LABS: Anion Gap 9.5 mEq/L (5-15); Calcium 8.6 mg/dL (8.5-10.1); Potassium 4.5 mmoL/L (3.5-5.1)
--- NOTE | 2018-07-14 07:39 | Carotid Imaging Report ---
"Cerebrovascular Exam Indications: TIA 434.91. IMPRESSIONS 1. The bilateral vertebral arteries are patent with normal antegrade flow. 2. Study suggests 20-49% stenosis involving the right internal carotid artery and the left internal carotid artery. History: Transient ischemic attack. Risk factors: Hyperlipidemia. Carotid duplex study. Complete study and Doppler flow study including spectral analysis, color and partida scale imaging. Height: Height: 157.5cm. Height: 62in. Weight: Weight: 78kg. Weight: 171.6lb. Body mass index: BMI: 31.5kg/m^2. Body surface area: BSA: 1.88m^2. Location: Bedside. Patient status: Inpatient. Tables: Arterial flow: + +--------+--------+ |Location |V sys |V ed | + +--------+--------+ |Right CCA - proximal|95.9cm/s|20.4cm/s| + +--------+--------+ |Right CCA - distal |75.4cm/s|14.5cm/s| + +--------+--------+ |Right ECA |73.3cm/s|--------| + +--------+--------+ |Right ICA - proximal|74.4cm/s|12.1cm/s| + +--------+--------+ |Right ICA - mid |138cm/s |28.9cm/s| + +--------+--------+ |Right ICA - distal |119cm/s |32.7cm/s| + +--------+--------+ |Right vertebral |50.6cm/s|--------| + +--------+--------+ |Left CCA - proximal |83cm/s |19.5cm/s| + +--------+--------+ |Left CCA - distal |71cm/s |16.3cm/s| + +--------+--------+ |Left ECA |81.7cm/s|--------| + +--------+--------+ |Left ICA - proximal |88cm/s |24.5cm/s| + +--------+--------+ |Left ICA - mid |92.9cm/s|24.5cm/s| + +--------+--------+ |Left ICA - distal |130cm/s |31.4cm/s| + +--------+--------+ |Left vertebral |60.3cm/s|--------| + +--------+--------+ Velocity ratios: + + + + + + | |Right, V sys|Right, V ed|Left, V sys|Left, V ed| + + + + + + |Max ICA/dist CCA|1.83 |2.26 |1.83 |1.93 | + + + + + + (Report amended ) Electronically signed by: Bigg Robledo [id number]"
--- NOTE | 2018-07-14 07:43 | Pharmacy Consult Notes ---
[facility] Pharmacy VTE Monitoring - Patient Demographics Admission date: 07/13/18 Report Date: 07/14/18 Time: 07:43 Allergies/Adverse Reactions: Patient Allergies No Known Allergies Allergy (Verified 07/13/18 23:54) Height: 1.57 m Weight: 81.193 kg Patient Problems: Current Active Problems (Updated 07/13/18 @ 22:34 by Deshawn Pollock MD) Hypertensive emergency (Acute) Obesity (Acute) TIA (transient ischemic attack) (Acute) - VTE Risk Labs: VTE Related Lab Results Hgb 11.4 g/dL (12.2-16.2) L 07/14/18 05:05 Hct 34.4 % (37.0-47.0) L 07/14/18 05:05 Plt Count 196 K/mm3 (142-424) 07/14/18 05:05 BUN 28 mg/dL (7-18) H 07/14/18 05:05 Creatinine 0.85 mg/dL (0.55-1.02) 07/14/18 05:05 Estimated Creat Clear 65 mL/min (50-200) 07/14/18 05:05 Was VTE Risk Assessment Performed: Yes VTE Score: 3 VTE Risk Level: Low Risk Clinical Trial Participant: No - Prophylaxis VTE Prophylaxis Ordered?: Yes Types of VTE Prophylaxis: TEDS Knee High
--- NOTE | 2018-07-14 08:12 | H&P/Discharge Summary ---
General - General Admission date:: 07/13/18 Discharge date: 07/14/18 *Admission Date: 07/13/18 *Chief complaint: Elevated blood pressure/bilateral forearm tingling *History of present illness: 73-year-old white female with history of TIAs, history of coronary atherosclerosis status post stent placement last year, who came to the emergency department with bilateral forearm tingling. This was accelerated over the past 8 or so hours before presentation to the ER. In the ER work-up was essentially negative except for elevated blood pressure at 150, which is an unusual finding for this patient and she was admitted overnight for further evaluation and further laboratory testing and diagnostic imaging. [facility] History I have reviewed the patient's past medical history: Yes Medical History: Reports:: Coronary Artery Disease, Heart Murmur, Hyperlipidemia, Hypertension Denies:: Anxiety, Asthma, Cancer, Diabetes Mellitus Type 1, Diabetes Mellitus Type 2, MRSA *Have you ever received a pneumonia vaccine?: Yes *Have you received a flu vaccine this season?: Yes Laterality Cases: Left: Lumpectomy, Right: Arthroscopy Shoulder, Bilateral: Tonsillectomy Other Surgeries: Yes: Appendectomy, Cardiac Catheterization, Coronary Stent, Hysterectomy-Total, Other Amputation: No Fractures: No - *Social History Educational Level: Attended College Smoking Status: Former smoker Tobacco Type: cigarettes # Packs/Day (cigarettes): 1 #Yrs smoked (if former smoker): 20 Alcohol Intake: never Alcohol Intake Frequency:: holidays/special occasions only Substance Use Type: denies use *Occupational Status:: retired Housing: house Household Members: spouse *Travel in the last 8 weeks: None - Psychiatric History Expresses thoughts of harming self/others: None Suicide Plan Description: No Plan Pschychiatric History:: Denies:: Anxiety Family Hx:: Cancer, Stroke Review of Systems - Review of Systems Review of systems:: pertinent systems reviewed and negative unless documented below This morning patient is awake, pleasant. Denies cardiac or respiratory symptoms. Reports continuing mild forearm tingling with movement, but denies weakness. Denies cranial nerve symptoms of dysarthria or diplopia. Denies GI or complaints. - *Neurologic Denies abnormal speech, Denies confusion, Denies dizziness, Denies localized weakness, Denies headache(s), Denies seizure-like activity, Denies sensory deficit Exam Vital signs and Labs for Last 24 Hours: Temp Pulse Resp BP Pulse Ox 97.8 F 56 L 19 126/89 98 07/13/18 23:35 07/14/18 04:00 07/14/18 02:00 07/14/18 02:00 07/14/18 02:00 Laboratory Results - last 24 hr 07/13/18 21:25: WBC 9.1, RBC 4.23, Hgb 12.5, Hct 38.0, MCV 89.8, MCH 29.5, MCHC 32.8, RDW 13.0, Plt Count 245, MPV 8.3, Neut % (Auto) 49.2, Lymph % (Auto) 41.1, [place] % (Auto) 5.7, Eos % (Auto) 3.3, Baso % (Auto) 0.6, Neut # (Auto) 4.5, Lymph # (Auto) 3.8, [place] # (Auto) 0.5, Eos # (Auto) 0.3, Baso # (Auto) 0.1 07/13/18 21:25: Sodium 141, Potassium 3.5, Chloride 105, Carbon Dioxide 28, Anion Gap 11.5, BUN 28 H, Creatinine 0.84, Estimated Creat Clear 63, Estimated GFR 67, Est GFR ( Amer) 81, Glucose 103, Calcium 9.1, Total Bilirubin 0.3, AST 16, ALT 28, Alkaline Phosphatase 73, Troponin I < 0.02, C-Reactive Protein 0.5, Total Protein 7.4, Albumin 4.0, Globulin 3.4 H, Albumin/Globulin Ratio 1.2 07/14/18 01:40: Troponin I 0.03 07/14/18 05:05: Sodium 142, Potassium 4.5 D, Chloride 109 H, Carbon Dioxide 28, Anion Gap 9.5, BUN 28 H, Creatinine 0.85, Estimated Creat Clear 65, Estimated GFR 66, Est GFR ( Amer) 80, Glucose 91, Calcium 8.6, Magnesium 2.2, Troponin I 0.03 07/14/18 05:05: WBC 6.6 D, RBC 3.83 L, Hgb 11.4 L, Hct 34.4 L, MCV 89.9, MCH 29.7, MCHC 33.0, RDW 13.0, Plt Count 196, MPV 8.8, Neut % (Auto) 53.5, Lymph % (Auto) 36.2, [place] % (Auto) 5.7, Eos % (Auto) 3.9, Baso % (Auto) 0.7, Neut # (Auto) 3.5, Lymph # (Auto) 2.4, [place] # (Auto) 0.4, Eos # (Auto) 0.3, Baso # (Auto) 0.1 I & O for Last 24 hours: Intake & Output 07/11/18 07/12/18 07/13/18 07/14/18 11:59 11:59 11:59 11:59 Intake Total 1185 / 1185 Output Total 100 / 100 Balance 1085 / 1085 Weight 179 lb Narrative: Patient is awake, alert, pleasant, memory and sensorium are intact. Cranial nerves intact, oropharynx clear. No JVD. Lungs have good air movement bilaterally. Heart rate regular without murmurs. Abdomen soft nontender. Able to move all extremities well. Arm neurologic exam specifically is normal with normal ampoule filler strength bilaterally, normal coordination and normal sensation. Hospital Course Hospital Course: Patient was admitted overnight, her blood pressure medications in their normal home dosage were restarted, her blood pressure this morning is in the 140s, she remains fairly asymptomatic. Plan will be to discharge home, I will increase her dose of lisinopril to 5 mg daily. I will have her see her regular physician in 2 days and follow-up with cardiology as scheduled over the next couple of weeks. She will continue dual antiplatelet therapy as previously prescribed. Results Labs on day of discharge: Labs from last 24 hours 07/14/18 07/14/18 07/14/18 05:05 05:05 01:40 WBC 6.6 D RBC 3.83 L Hgb 11.4 L Hct 34.4 L MCV 89.9 MCH 29.7 MCHC 33.0 RDW 13.0 Plt Count 196 MPV 8.8 Neut % (Auto) 53.5 Lymph % (Auto) 36.2 [place] % (Auto) 5.7 Eos % (Auto) 3.9 Baso % (Auto) 0.7 Neut # (Auto) 3.5 Lymph # (Auto) 2.4 [place] # (Auto) 0.4 Eos # (Auto) 0.3 Baso # (Auto) 0.1 Sodium 142 Potassium 4.5 D Chloride 109 H Carbon Dioxide 28 Anion Gap 9.5 BUN 28 H Creatinine 0.85 Estimated Creat Clear 65 Estimated GFR 66 Est GFR ( Amer) 80 Glucose 91 Calcium 8.6 Magnesium 2.2 Total Bilirubin AST ALT Alkaline Phosphatase Troponin I 0.03 0.03 C-Reactive Protein Total Protein Albumin Globulin Albumin/Globulin Ratio 07/13/18 07/13/18 21:25 21:25 WBC 9.1 RBC 4.23 Hgb 12.5 Hct 38.0 MCV 89.8 MCH 29.5 MCHC 32.8 RDW 13.0 Plt Count 245 MPV 8.3 Neut % (Auto) 49.2 Lymph % (Auto) 41.1 [place] % (Auto) 5.7 Eos % (Auto) 3.3 Baso % (Auto) 0.6 Neut # (Auto) 4.5 Lymph # (Auto) 3.8 [place] # (Auto) 0.5 Eos # (Auto) 0.3 Baso # (Auto) 0.1 Sodium 141 Potassium 3.5 Chloride 105 Carbon Dioxide 28 Anion Gap 11.5 BUN 28 H Creatinine 0.84 Estimated Creat Clear 63 Estimated GFR 67 Est GFR ( Amer) 81 Glucose 103 Calcium 9.1 Magnesium Total Bilirubin 0.3 AST 16 ALT 28 Alkaline Phosphatase 73 Troponin I < 0.02 C-Reactive Protein 0.5 Total Protein 7.4 Albumin 4.0 Globulin 3.4 H Albumin/Globulin Ratio 1.2 DS: Diagnosis - Discharge Diagnosis (1) Hypertensive urgency Status: Acute Problem details: Addressed with increased lisinopril as noted (2) History of coronary atherosclerosis Status: Acute Problem details: No evidence of recurrence, following with cardiology next week (3) Paresthesia and pain of both upper extremities Status: Acute Problem details: No evidence that this is related to cranial/upper motor neuron issues. Discharge Medications - Medications for Discharge Home Medication List at Discharge: Continued docusate sodium 100 mg capsule 100 mg PO DAILY PRN PRN Reason: Constipation pantoprazole 40 mg tablet,delayed release 40 mg PO QODHS tab atorvastatin 10 mg tablet 20 mg PO DAILY tab Clopidogrel Bisulfate [Plavix 75mg Tab] 75 mg PO DAILY Bisoprolol Fumarate [Bisoprolol 5mg Tablet] 2.5 mg PO DAILY Aspirin [Aspirin 81mg EC Tab] 81 mg PO DAILY Changed Lisinopril [Lisinopril 2.5mg Tab] 5 mg PO DAILY 30 Days #30 tab
== END 2018-07-14 08:50 | disposition home or self-care (01) ==
LOC: ICU 21:18 → ER 21:18 → ICU 23:06
PROVIDERS: ADMIT Family Medicine; ATTEND Internal Medicine Adolescent Medicine
CPT/HCPCS: 36415; 70450; 71020; 71046; 80048; 80053; 83735; 84484; 85025; 86140; 93005; 93880; 96365; 96375; 99284; G0378; J2405

== ENCOUNTER → 2018-07-21 06:12 | Outpatient (CLI) | payer MEDICARE, OTHER, SELFPAY ==
--- NOTE | 2018-07-21 06:21 | NM_ITS ---
CARDIOLITE SPECT MYOCARDIAL PERFUSION LEXISCAN, REST AND STRESS: [facility] REVIEW QGS EF AND WALL MOTION EVALUATION: QPS - PERFUSION EVALUATION HISTORY: CAD, Hx of [place], Chest pain, SOB, Abnormal Echo, Family history, HTN DOSE: 10.36 mCi technetium 99m mibi intravenously at rest followed by 31.8 mCi technetium 99m mibi following the intravenous ministration of 0.4 mg of Lexiscan. Resting blood pressure is 180/82. Stress blood pressure 149/77. FINDINGS: Ejection fraction is calculated to be 56%. Stress images reveal uniform myocardial activity while rest images reveal decreased activity in the apical and septal areas. IMPRESSION: This is an abnormal stress test which suggests reverse redistribution in the septal and apical wall. Normal ejection fraction normal wall motion. This is a high risk abnormal stress test.
--- NOTE | 2018-07-21 07:06 | HMH.ITSHM ---
Current Home Medications as stated by this patient Leonor Reardon or artists' booking representative. []PANTOPRAZOLE PLAVIX BISOPROLOL ASA ATORVASTATIN LISINOPRIL
== END ==
PROVIDERS: PCP Internal Medicine; Visit Provider Internal Medicine Cardiovascular Disease
DX: I11.9 Hypertensive heart disease without heart failure; Z95.5 Presence of coronary angioplasty implant and graft; I25.118 Atherosclerotic heart disease of native coronary artery with other forms of angina pectoris; R42 Dizziness and giddiness; R93.1 Abnormal findings on diagnostic imaging of heart and coronary circulation; E78.49 Other hyperlipidemia
CPT/HCPCS: 78452; 93017; A9502; J2785

== ENCOUNTER 2018-07-29 08:34 | Day surgery (SDC) | payer MEDICARE, OTHER, SELFPAY ==
[2018-07-29] VITALS (12 sets, daily range): BP systolic 106–169; BP diastolic 50–78; PULSE 49–67; RESP 16–18; TEMP 36.8; O2SAT 94–100; BMI 32.1
--- NOTE | 2018-07-29 | IR_ITS ---
CARDIAC CATHETERIZATION DATE OF CATHETERIZATION:07/29/2018 11:50 AM PROCEDURES: 1. Left heart catheterization 2. Left ventriculogram 3. Selective coronary angiogram INDICATION FOR TEST: 1. Known coronary artery disease 2. Abnormal Myoview 3. Angina pectoris Informed consent was obtained prior to the procedure. COMPLICATIONS: None ESTIMATED BLOOD LOSS: Less than 10 ml. TECHNIQUE: One percent lidocaine used to anesthetize the right anterior aspect of the wrist. The right radial artery was accessed via the Seldinger technique. A 6 [place]serratian sheath was placed in the right radial artery. 2.5 mg of verapamil, 800 mcg of nitroglycerin, 1mg Lidocaine and 5000 U Heparin were given through the arterial sheath. The trap catheter was also used to perform left heart catheterization, left ventriculogram and selective coronary angiogram. At the end of the procedure the sheath was removed good hemostasis was achieved using Traclet band, patient was transferred to the postop holding area in stable condition . ANGIOGRAPHIC RESULTS: 1. The left main artery normal 2. The left anterior descending artery has a stent in the proximal through the mid segment which is widely patent with excellent proximal distal transitioning with minimal in-stent restenosis. A bifurcating stent from the first diagonal artery is also widely patent with excellent distal transitioning. The remaining LAD is free of disease 3. The circumflex artery is a nondominant and normal 4. The right coronary artery is a dominant vessel and has an ostial to proximal stent which is widely patent with mild 30% in-stent restenosis. Distally the vessel is normal 5. The TUCKER ventriculogram reveals normal 65% 6. The left ventricular end-diastolic pressure 10 mmHg IMPRESSION: 1. Widely patent proximal to mid LAD stent with widely patent bifurcating stent into the proximal first diagonal artery 2. Normal ejection fraction 3. Normal left ventricular end-diastolic pressure PLAN: 1. Medical management
[2018-07-29 09:13] LABS: Basophils % 0.6 % (0.1-2.0); Eosinophils # 0.3 K/mm3 (0.0-0.4); Eosinophils % 3.4 % (0.1-12.0); Hematocrit 39.8 % (37.0-47.0); Hemoglobin 13.2 g/dL (12.2-16.2); Lymphocytes # 2.4 K/mm3 (0.7-4.5); Mean Corpuscular HGB Conc 33.2 g/dL (31.8-35.4); Mean Corpuscular Hemoglobin 29.7 pg (27.0-31.2); Mean Corpuscular Volume 89.4 fl (81-99); Mean Platelet Volume 8.7 fl (7.4-10.4); Monocytes # 0.5 K/mm3 (0.1-1.0); Neutrophils # 4.3 K/mm3 (1.8-7.8); Platelet Count 247 K/mm3 (142-424); Red Blood Count 4.46 M/mm3 (4.20-5.40); Red Cell Distribution Width 13.1 % (11.5-17.5); White Blood Count 7.4 K/mm3 (4.8-10.8)
[2018-07-29 09:23] LABS: Anion Gap 13.6 mEq/L (5-15); Blood Urea Nitrogen 17 mg/dL (7-18); Calcium 9.3 mg/dL (8.5-10.1); Carbon Dioxide 28 mmol/L (21.0-32.0); Chloride 102 mmol/L (98-107); Creatinine Clearance Estimated 64 mL/min (50-200); Estimated Glomerular Filt Rate 71 ml/min (>60); GFR (African American) 85 ML/MIN (>60); Glucose 94 mg/dL (74-106); Potassium 3.6 mmoL/L (3.5-5.1); Sodium 140 mmol/L (136-145)
== END 2018-07-29 15:07 | disposition home or self-care (01) ==
LOC: CATHLAB 08:37
PROVIDERS: PCP Internal Medicine; Visit Provider Internal Medicine
DX: I25.118 Atherosclerotic heart disease of native coronary artery with other forms of angina pectoris (principal); Z95.5 Presence of coronary angioplasty implant and graft; E78.5 Hyperlipidemia, unspecified; I11.9 Hypertensive heart disease without heart failure; Z87.891 Personal history of nicotine dependence; Z79.899 Other long term (current) drug therapy
CPT/HCPCS: 80048; 85025; 93458; 99152; C1725; C1769; J1644; Q9967

== ENCOUNTER → 2019-02-26 09:45 | Outpatient (CLI) | payer MEDICARE, OTHER, SELFPAY ==
--- NOTE | 2019-02-26 09:46 | MM_ITS ---
PROCEDURE: MM DIG SCREENING MAMM BI W/CAD Patient Age:73Y CLINICAL INDICATION: Routine Screening Mammogram 73-year-old. No hormones but no new complaints Previous benign lumpectomy 1994-left breast upper-outer quadrant Family history. Paternal aunt with breast cancer. COMPARISON: DMSB DIG MAMM-SCREEN KENDRICK from 10/13/2012 DMSB DIG MAMM-SCREEN KENDRICK from 11/13/2013 DMSB DIG MAMM-SCREEN KENDRICK from 03/28/2015 DMSB DIG MAMM-SCREEN KENDRICK W/CAD from 06/19/2016 TECHNIQUE: Standard CC and MLO images were obtained. R2 CAD reviewed. FINDINGS: Low-density breast. Generalized fatty replacement only minimal scant residual fibroglandular elements, slight more evident at the right retroareolar region than left. No new areas of concern. Innumerable scattered small punctate most compatible with skin/dermal calcifications throughout both breast again noted. The bilateral follow-up 1 year recommended IMPRESSION: Stable bilateral mammogram No new areas of concern Bilateral follow-up 1 year The BI-RAD Category: 2 Benign Finding(s). FOLLOW-UP: 1YR 1 Year Follow-up (A letter has been sent to the patient regarding results of the study.) Dictated by: Robert Gong MD 03/02/2019 15:56 Electronically signed by Robert Gong MD in [place] 03/02/2019 15:56
== END ==
PROVIDERS: PCP Internal Medicine; Visit Provider Obstetrics & Gynecology
DX: Z12.31 Encounter for screening mammogram for malignant neoplasm of breast (principal)
CPT/HCPCS: 77067

== ENCOUNTER → 2019-03-02 10:25 | Outpatient (CLI) | payer MEDICARE, OTHER, SELFPAY ==
--- NOTE | 2019-03-02 10:43 | XR_ITS ---
PROCEDURE: XR DEXA AXIAL SKELETON CLINICAL HISTORY: Bone Density- post-menopausal COMPARISON: No exams were available for comparison FINDINGS: Lumbar spine (L1 through L4), BMD 0.920, T-score -1.2. Right hip (neck), BMD 0.699, T-score -1.3. Right hip (Total), BMD 0.849, T-score -0.8. Left hip (neck), BMD 0.721, T-score -1.1. Left hip (Total), BMD 0.793, T-score -1.2. IMPRESSION: Osteopenia. Dictated by: Luis Raymundo 03/02/2019 11:54 Electronically signed by Luis Raymundo in [place] 03/02/2019 11:54
== END ==
PROVIDERS: PCP Internal Medicine; Visit Provider Obstetrics & Gynecology
DX: Z78.0 Asymptomatic menopausal state (principal)
CPT/HCPCS: 77080

== ENCOUNTER → 2019-05-11 17:46 | Outpatient (CLI) | payer MEDICARE, OTHER, SELFPAY ==
[2019-05-11 19:46] LABS: Erythrocyte Sedimentation Rate 20 mm/hr (0-30)
== END ==
PROVIDERS: Visit Provider Internal Medicine
DX: R51 Headache (principal); R42 Dizziness and giddiness; H53.8 Other visual disturbances
CPT/HCPCS: 85651

== ENCOUNTER → 2019-07-17 11:57 | Outpatient (CLI) | payer MEDICARE, OTHER, SELFPAY | LOC: LAB 11:59 → LAB.DROPOF 12:00 | PROVIDERS: Visit Provider Urology | DX: R30.0 Dysuria (principal) | CPT/HCPCS: 87086; 87088; 87186 ==

== ENCOUNTER → 2019-11-03 09:19 | Outpatient (CLI) | payer MEDICARE, OTHER, SELFPAY ==
--- NOTE | 2019-11-03 09:20 | CA_ITS ---
APPROVED REPORT Plant Electrician: Melissa Zamora RVT Laterality: Bilateral Study Quality: Excellent Indications: Carotid stenosis Risk Factors TIA/CVA History Doppler Spectral Velocity Analysis ECA (R) 81.40/14.20 cm/s ECA (L) 113.50/13.00 cm/s dICA (R) 119.80/25.20 cm/s dICA (L) 68.00/20.70 cm/s Cate (R) 121.90/29.30 cm/s Cate (L) 70.60/20.70 cm/s pICA (R) 111.40/21.80 cm/s pICA (L) 94.80/22.50 cm/s dCCA (R) 63.30/12.00 cm/s dCCA (L) 63.20/14.10 cm/s pCCA (R) 92.00/14.30 cm/s pCCA (L) 53.90/13.40 cm/s Vert (R) 48.00/13.70 cm/s Vert (L) 38.50/9.40 cm/s ICA/CCA 1.92 ICA/CCA 1.50 Findings Study suggests 20-49% stenosis of the right internal cartoid artery unchanged from the 07/13/18 study. Study suggests 20-49% stenosis of the left internal cartoid artery unchanged from the 07/13/18 study. Antegrade flow seen bilateral vertebral arteries. Conclusion Study suggests 20-49% stenosis of the right internal cartoid artery unchanged from the 07/13/18 study. Study suggests 20-49% stenosis of the left internal cartoid artery unchanged from the 07/13/18 study. Antegrade flow seen bilateral vertebral arteries. Electronically signed by : Bigg Robledo MD 11/03/2019 18:07:39
== END ==
PROVIDERS: PCP Internal Medicine; Visit Provider Urology
DX: I65.23 Occlusion and stenosis of bilateral carotid arteries (principal)
CPT/HCPCS: 93880

== ENCOUNTER → 2020-02-23 10:16 | Outpatient (POV) | payer MEDICARE, OTHER, SELFPAY | PROVIDERS: Visit Provider Dermatology | DX: Z00.00 Encounter for general adult medical examination without abnormal findings (principal) ==

== ENCOUNTER → 2020-03-15 09:56 | Outpatient (CLI) | payer MEDICARE, OTHER, SELFPAY ==
--- NOTE | 2020-03-15 09:56 | MM_ITS ---
PROCEDURE: MM DIG SCREENING MAMM BI W/CAD Referring Doctor: Evelina Torres Patient Age:74Y CLINICAL INDICATION: routine mammogram. 74-year-old female uses estrogen cream 6 months the. No new complaints Previous lumpectomy 1994.; previous benign biopsy Family history. Paternal aunt breast cancer COMPARISON: MG MM DIG DIAG KENDRICK PANEL W/CAD from 03/23/2009 MG MM MAMMO DIGITAL SCREENING W CAD BILAT from 05/08/2010 MG DMSB DIG MAMM-SCREEN KENDRICK from 10/13/2012 MG DMSB DIG MAMM-SCREEN KENDRICK from 11/13/2013 MG DMSB DIG MAMM-SCREEN KENDRICK from 03/28/2015 MG DMSB DIG MAMM-SCREEN KENDRICK W/CAD from 06/19/2016 MG MM DIG SCREENING MAMM BI W/CAD from 02/26/2019 TECHNIQUE: Standard CC and MLO images were obtained. R2 CAD reviewed. Bilateral digital breast tomosynthesis included. FINDINGS: Generalized fatty replacement, fairly low-density breast. With minimal elements retroareolar region and minimal residual fibroglandular elements most evident lateral retroareolar region on right breast. Stable mild asymmetry No significant new areas of concern either breast A numerous small scattered round punctate benign appearing calcifications most evident towards the deep and medial breast,.-. These are benign appearing calcifications most compatible with benign skin, dermal calcifications-not of concern. Small areas of nodularity appear similar to previous study Left breast. Stable small density deep medial right breast is unchanged since multiple previous studies Small 4 mm ovoid well-circumscribed nodular density at the central breast best seen on cc tomosynthesis 30, was seen in 2019 and 2017 is not changed appreciably particularly when reviewed on MLO view. Thus a can be followed. Bilateral follow-up 1 year recommended and should be encouraged/emphasized . IMPRESSION: . No new findings of significant concern . Overall stable bilateral Mammogram Bilateral follow-up 1 year recommended-and would be encouraged/emphasized BI-RAD Category: 2 Benign Finding(s) FOLLOW-UP: 1YR 1 Year Follow-up (A letter has been sent to the patient regarding results of the study.) Dictated by: Robert Gong MD 03/18/2020 11:28 Robert Gong MD in [place] 03/18/2020 11:28
== END ==
PROVIDERS: PCP Internal Medicine; Visit Provider Obstetrics & Gynecology
DX: Z12.31 Encounter for screening mammogram for malignant neoplasm of breast (principal)
CPT/HCPCS: 77063; 77067

== ENCOUNTER 2020-06-26 05:27 | Observation (INO) | payer MEDICARE, OTHER, SELFPAY ==
[2020-06-26] VITALS (9 sets, daily range): BP systolic 114–208; BP diastolic 54–94; PULSE 56–80; RESP 14–22; TEMP 36.6–36.8; O2SAT 96–99; BMI 33.6; BMI 34.9
--- NOTE | 2020-06-26 05:19 | ECG_ITS ---
APPROVED REPORT Exam: Resting ECG HR:72 bpm ECG Measurements Heart Rate 72 AXES VT 174 P 63 QRSd 80 QRS 20 QT 364 T 65 QTc 398 Conclusion Sinus rhythm with frequent premature ventricular complexes Otherwise normal ECG Electronically signed by : Jose Schmid, 06/27/2020 19:02:40
--- NOTE | 2020-06-26 05:36 | XR_ITS ---
PROCEDURE: XR CHEST 2V CLINICAL HISTORY: Chest Pain COMPARISON: CT CHESTW CT chest w con from 06/15/2017 CR CXR1VP XR chest portable from 01/28/2018 CR CXR2V XR chest 2V from 07/13/2018 CR XR CHEST 2V from 05/06/2019 FINDINGS: Normal heart size. Coronary artery stents are. The The lungs are clear without infiltrates, suspicious nodules, or pleural effusions. Mild lower thoracic curvature convex right and upper lumbar curvature convex. Postsurgical changes right shoulder IMPRESSION: No acute findings. Dictated by: Bigg Robledo MD 06/26/2020 07:18 Bigg Robledo MD in [place] 06/26/2020 07:18
[2020-06-26 05:47] LABS: Basophils # 0.1 K/mm3 (0-0.2); Basophils % 0.7 % (0.1-2.0); Eosinophils # 0.2 K/mm3 (0.0-0.4); Eosinophils % 1.5 % (0.1-12.0); Hematocrit 39.5 % (37.0-47.0); Lymphocytes # 3.1 K/mm3 (0.7-4.5); Lymphocytes % 29.4 % (10-50); Mean Platelet Volume 8.5 fl (7.4-10.4); Monocytes # 0.6 K/mm3 (0.1-1.0); Monocytes % 5.4 % (1.7-9.3); Neutrophils # 6.6 K/mm3 (1.8-7.8); Neutrophils % 62.9 % (37.0-80.0); Platelet Count 241 K/mm3 (142-424); Red Blood Count 4.49 M/mm3 (4.20-5.40); Red Cell Distribution Width 13.5 % (11.5-17.5); White Blood Count 10.5 K/mm3 (4.8-10.8)
[2020-06-26 05:51] LABS: Alanine Aminotransferase 17 U/L (12-78); Albumin Level 4.5 g/dl (3.5-5.0); Alkaline Phosphatase 86 U/L (38-126); Anion Gap 10.6 mEq/L (5-15); Aspartate Amino Transferase 35 U/L (14-36); Bilirubin,Indirect 0.6 mg/dL (0.0-0.9); Bilirubin,Total 0.6 mg/dl (0.2-1.3); Bilirubin,Unconjugated 0.7 mg/dL (0.0-1.1); Blood Urea Nitrogen 23 mg/dl (7-17); Calcium 10.3 mg/dl (8.4-10.2); Carbon Dioxide 27 mmol/L (22.0-30.0); Chloride 108 mmol/L (98-107); Creatinine Clearance Estimated 65 mL/min (50-200); Estimated Glomerular Filt Rate 82 ml/min (>60); GFR (African American) 99 ML/MIN (>60); Glucose 109 mg/dl (74-100); Potassium 4.6 mmoL/L (3.5-5.1); Sodium 141 mmol/L (136-145); Total Protein,Serum 7.2 g/dl (6.3-8.2)
[2020-06-26 05:57] LABS: C-Reactive Protein 4.5 mg/L (0-4)
[2020-06-26 06:02] LABS: NT Pro Brain Natriuretic Pep. 656 pg/mL (0-125)
[2020-06-26 06:11] LABS: Procalcitonin 0.043 ng/mL (0.0-2.0)
[2020-06-26 06:12] LABS: Troponin I < 0.01 ng/ml (0.00-0.034)
[2020-06-26 06:24] LABS: Erythrocyte Sedimentation Rate 26 mm/hr (0-30)
[2020-06-26 06:25] LABS: Thyroid Stimulating Hormone 3.02 uIU/mL (0.465-4.68)
--- NOTE | 2020-06-26 06:33 | HMH.EDCP ---
ED Disposition Clinical Impression: Unstable angina pectoris, PVC (premature ventricular contraction), Hypertensive emergency Obesity Qualifiers: Obesity type: due to excess calories Obesity classification: adult class 1 (BMI 30 - 34.9) Serious obesity comorbidity presence: with serious comorbidity Body mass index: BMI 33.0-33.9 Qualified Code(s): E66.09 - Other obesity due to excess calories; Z68.33 - Body mass index [BMI] 33.0-33.9, adult CAD (coronary artery disease) Qualifiers: Coronary Disease-Associated Artery/Lesion type: [place] artery Nikolai vs. transplanted heart: [place] heart Associated angina: with unstable angina Qualified Code(s): I25.110 - Atherosclerotic heart disease of [place] coronary artery with unstable angina pectoris Disposition: Admitted as Observation Condition on Discharge: Good Referrals: Boston Ziegler [Primary Care Provider] - - Critical Care Critical Care Time: No Attestation: On 06/26/20, the high probability of a clinically significant, sudden or life threatening deterioration of the following system(s) required my full and direct attention, intervention and personal management. The time I documented below is in addition to time spent performing reported procedures but includes the following listed in this critical care notation. Medical Decision Making - Medical Records Medical records reviewed: Yes: I reviewed the patient's medical records. - Mohan Inquiry Pt receiving controlled substance: No Vital Signs: 06/26/20 05:28 06/26/20 06:01 06/26/20 06:08 Temperature 98.1 F Temperature Source Oral Pulse Rate 62 58 L Pulse Rate [Right] 80 Respiratory Rate 22 14 16 Blood Pressure 199/94 H 208/92 H Blood Pressure [Right Arm] 199/90 H Blood Pressure Mean 121 113 Blood Pressure Mean [Right Arm] 126 Blood Pressure Source [Right Arm] Automatic Cuff Blood Pressure Position [Right Arm] Supine 02 Sat by Pulse Oximetry 98 97 96 Oxygen Delivery Method Room Air Room Air Room Air - Lab Data Lab results reviewed: Yes: I reviewed the patient's lab results. Lab Results 06/26/20 05:28: WBC 10.5, RBC 4.49, Hgb 13.0, Hct 39.5, MCV 88.0, MCH 29.0, MCHC 33.0, RDW 13.5, Plt Count 241, MPV 8.5, Neut % (Auto) 62.9, Lymph % (Auto) 29.4, [place] % (Auto) 5.4, Eos % (Auto) 1.5, Baso % (Auto) 0.7, Neut # (Auto) 6.6, Lymph # (Auto) 3.1, [place] # (Auto) 0.6, Eos # (Auto) 0.2, Baso # (Auto) 0.1, ESR 26 06/26/20 05:28: Sodium 141, Potassium 4.6, Chloride 108 H, Carbon Dioxide 27, Anion Gap 10.6, BUN 23 H, Creatinine 0.70, Estimated Creat Clear 65, Estimated GFR 82, Est GFR ( Amer) 99, Glucose 109 H, Calcium 10.3 H, Total Bilirubin 0.6, Direct Bilirubin 0.0, Conjugated Bilirubin 0.0, Indirect Bilirubin 0.6, Unconjugated Bilirubin 0.7, AST 35, ALT 17, Alkaline Phosphatase 86, Troponin I < 0.01, C-Reactive Protein 4.5 H, Total Protein 7.2, Albumin 4.5, Procalcitonin 0.043, TSH 3.02, Thyroxine (T4) 10.0 06/26/20 05:28: NT-Pro-B Natriuret Pep 656 H Result diagrams: 06/26/20 05:28 06/26/20 05:28 Orders (Tests/Meds): ED MEDICATIONS Generic Name Dose Route Start Last Admin Trade Name Freq PRN Reason Stop Dose Admin Sodium Chloride 1,000 mls @ 999 mls/hr 06/26/20 05:45 06/26/20 05:38 Sod Chlor 0.9% 1000ml Bag IV 06/26/20 06:45 999 mls/hr .[id number] SHAYLEE Administration Discontinued Medications Generic Name Dose Route Start Last Admin Trade Name Freq PRN Reason Stop Dose Admin Aspirin 162 mg 06/26/20 05:34 06/26/20 05:36 Aspirin 81mg Chewable Tablet PO 06/26/20 05:35 162 mg ONCE ONE Administration Hydralazine HCl 10 mg 06/26/20 06:46 06/26/20 06:47 Hydralazine 20mg/Ml Vial IV 06/26/20 06:47 10 mg ONCE ONE Administration Nitroglycerin 1 gm 06/26/20 05:34 06/26/20 05:37 Nitroglycerin 1 Gm Ointment TD 06/26/20 05:35 1 gm ONCE ONE Administration Nitroglycerin 0.4 mg 06/26/20 05:35 06/26/20 05:36 Nitroglycerin 0.4mg Sl Tablet SL 06/26/20
[2020-06-26 06:50] LABS: Adenovirus,PCR Not Detected (NotDetected); Bordetella Pertussis Not Detected (NotDetected); Chlamydophila Pneumoniae, PCR Not Detected (NotDetected); Coronavirus 19, PCR Not Detected (NotDetected); Coronavirus 229E Not Detected (NotDetected); Coronavirus NL63 Not Detected (NotDetected); Coronavirus OC43 Not Detected (NotDetected); Coronovirus HKU1,PCR Not Detected (NotDetected); Human Metapneumovirus Not Detected (NotDetected); Influenza A, PCR Not Detected (NotDetected); Influenza AH1, 2009 Not Detected (NotDetected); Influenza AH1, PCR Not Detected (NotDetected); Influenza AH3,PCR Not Detected (NotDetected); Influenza B, PCR Not Detected (NotDetected); Mycoplasma Pneumoniae, PCR Not Detected (NotDetected); Parainfluenza 1, PCR Not Detected (NotDetected); Parainfluenza 2, PCR Not Detected (NotDetected); Parainfluenza 3, PCR Not Detected (NotDetected); Parainfluenza 4, PCR Not Detected (NotDetected); Respiratory Syncytial Virus Not Detected (NotDetected); Rhinovirus/Enterovirus Not Detected (NotDetected)
--- NOTE | 2020-06-26 07:27 | PC.NURSE ---
Pt ambulated to the bathroom, no complaints at this time. Family at bedside. Waiting on covid test results.
--- NOTE | 2020-06-26 08:14 | PC.NURSE ---
REPORT CALLED TO GIOVANA MERCHANT AT THIS TIME
--- NOTE | 2020-06-26 08:24 | PC.NURSE ---
Pt arrived to the floor at this time.
--- NOTE | 2020-06-26 08:28 | PC.NURSE ---
Dr. Cali notified of consult.
--- NOTE | 2020-06-26 08:35 | HMH.PHAVTE ---
[facility] Pharmacy VTE Monitoring - Patient Demographics Admission date: 06/26/20 Report Date: 06/26/20 Time: 08:35 Allergies/Adverse Reactions: Patient Allergies No Known Allergies Allergy (Verified 05/09/20 14:41) Height: 1.57 m Weight: 86.778 kg Patient Problems: Current Active Problems Hypertensive emergency (Acute) Obesity (Acute) Unstable angina pectoris (Acute) PVC (premature ventricular contraction) (Chronic) CAD (coronary artery disease) (Chronic) - VTE Risk Labs: VTE Related Lab Results Hgb 13.0 g/dL (12.2-16.2) 06/26/20 05:28 Hct 39.5 % (37.0-47.0) 06/26/20 05:28 Plt Count 241 K/mm3 (142-424) 06/26/20 05:28 BUN 23 mg/dl (7-17) H 06/26/20 05:28 Creatinine 0.70 mg/dl (0.52-1.04) 06/26/20 05:28 Estimated Creat Clear 65 mL/min (50-200) 06/26/20 05:28 - Prophylaxis VTE Prophylaxis Ordered?: Yes Types of VTE Prophylaxis: TEDS Knee High Location of Applied Device: Bilateral Lower Extremeties
--- NOTE | 2020-06-26 09:14 | HMH.PHAINT ---
HOME MEDICATIONS RECONCILED FROM RX BOTTLES AND FILL HISTORY.
[2020-06-26 10:15] LABS: Troponin I < 0.01 ng/ml (0.00-0.034)
[2020-06-26 12:25] LABS: Troponin I < 0.01 ng/ml (0.00-0.034)
--- NOTE | 2020-06-26 13:21 | HMH.HPDC ---
General - General Admission date:: 06/26/20 Discharge date: 06/26/20 *Admission Date: 06/26/20 *Chief complaint: chest pain *History of present illness: Ms. Reardon is a 75-year-old female with history of coronary artery disease, hypertension, status post drug-eluting stent placement 2 years ago after an TN who presented to the ER overnight due to onset of chest pain that woke her from sleep. She states she had 2-3 episodes of severe pain in her left chest that failed to respond to a dose of bisoprolol causing her to come to the hospital. She had a similar episode a few nights ago that got better and resolved on its own. Was noted to have elevated blood pressure at that time. These events have concerned her as she has a history of coronary artery disease and the pain felt similar to her TN. Initial troponin negative. PVCs but otherwise normal-appearing EKG. No shortness of breath, confusion, nausea, vomiting. On my assessment today, she is currently pain-free and has had resolution since receiving an IV medication while in the ER. Blood pressure noted to be severely elevated on arrival to the ER. Labs otherwise at baseline. Additional history, she reports having had a profound inflammatory reaction to her first Covid vaccine in April. She received this vaccine in her left arm causing her arm to swell and have pain. It was bad enough that she opted to have her second vaccination dose in her right arm and did not have a severe reaction. [facility] History I have reviewed the patient's past medical history: Yes Medical History: Reports:: Coronary Artery Disease, Heart Murmur, Hyperlipidemia, Hypertension, Myocardial Infarction, Transient Ischemic Attacks (TIA) Denies:: Anxiety, Asthma, Cancer, Diabetes Mellitus Type 1, Diabetes Mellitus Type 2, MRSA, Seizures *Have you ever received a pneumonia vaccine?: Yes *Have you received a flu vaccine this season?: Yes Other Medical History: Reports: Anemia, Arthritis Laterality Cases: Left: Arthroscopy Knee, Lumpectomy, Right: Arthroscopy Shoulder, Bilateral: Tonsillectomy Other Surgeries: Yes: Appendectomy, Cardiac Catheterization, Cholecystectomy, Colonoscopy, Coronary Stent, Hysterectomy-Total, Hysterectomy-Partial, Other (RT shoulder repair, LT thumb cartilage) Amputation: No Fractures: No - *Social History Last grade of school completed: Some college Smoking Status: Never smoker Tobacco Type: cigarettes # Packs/Day (cigarettes): 1 #Yrs smoked (if former smoker): 20 Alcohol Intake: never Alcohol Intake Frequency:: holidays/special occasions only Substance Use Type: denies use *Occupational Status:: retired Housing: house Household Members: spouse *Travel in the last 8 weeks: None - Psychiatric History Pschychiatric History:: Denies:: Anxiety Family Hx:: Cancer, Stroke Review of Systems - Review of Systems Review of systems:: pertinent systems reviewed and negative unless documented below (14 point review of systems performed, pertinent positives and negatives as per HPI) - *Neurologic Denies headache(s), Denies seizure-like activity Exam Vital signs and Labs for Last 24 Hours: Temp Pulse Resp BP Pulse Ox 98.2 F 56 L 18 128/61 98 06/26/20 11:32 06/26/20 11:32 06/26/20 11:32 06/26/20 11:32 06/26/20 11:32 Laboratory Results - last 24 hr 06/26/20 05:28: WBC 10.5, RBC 4.49, Hgb 13.0, Hct 39.5, MCV 88.0, MCH 29.0, MCHC 33.0, RDW 13.5, Plt Count 241, MPV 8.5, Neut % (Auto) 62.9, Lymph % (Auto) 29.4, [place] % (Auto) 5.4, Eos % (Auto) 1.5, Baso % (Auto) 0.7, Neut # (Auto) 6.6, Lymph # (Auto) 3.1, [place] # (Auto) 0.6, Eos # (Auto) 0.2, Baso # (Auto) 0.1, ESR 26 06/26/20 05:28: Sodium 141, Potassium 4.6, Chloride 108 H, Carbon Dioxide 27, Anion Gap 10.6, BUN 23 H, Creatinine 0.70, Estimated Creat Clear 65, Estimated GFR 82, Est GFR ( Amer) 99, Glucose 109 H, Calcium 10.3 H, Total Bilirubin 0.6, Direct Bilirubin 0.0, Conjugated Bilirubin 0.0, Indirect Bilirubin 0.6, Uncon
== END 2020-06-26 14:22 | disposition home or self-care (01) ==
LOC: ER 05:32 → 2ND 06:58
PROVIDERS: Admitting Provider Internal Medicine Adolescent Medicine; Emergency Provider Emergency Medicine; PCP Internal Medicine; Visit Provider Internal Medicine Adolescent Medicine
DX: R07.9 Chest pain, unspecified (principal); I51.0 Cardiac septal defect, acquired; I25.2 Old myocardial infarction; Z95.5 Presence of coronary angioplasty implant and graft; I10 Essential (primary) hypertension; E66.9 Obesity, unspecified; Z68.35 Body mass index [BMI] 35.0-35.9, adult; R06.9 Unspecified abnormalities of breathing
CPT/HCPCS: 36415; 71046; 80048; 80076; 83880; 84145; 84436; 84443; 84484; 85025; 85651; 86140; 87581; 87633; 87798; 93005; 99283; G0378

== ENCOUNTER → 2020-06-28 08:54 | Outpatient (POV) | payer MEDICARE, OTHER, SELFPAY | PROVIDERS: Visit Provider Dermatology | DX: Z00.00 Encounter for general adult medical examination without abnormal findings (principal) ==

== ENCOUNTER → 2020-07-04 16:04 | Outpatient (CLI) | payer MEDICARE, OTHER, SELFPAY ==
--- NOTE | 2020-07-04 16:09 | CA_ITS ---
APPROVED REPORT Bilateral Lower Extremity Venous Study for DVT. Vehicle Controls Engineer: JERROD/SARWAT Indications CAD Medications Plavix Vein Imaging CFV (R): compressive, spontaneous, phasic, augmentation FEM (R): compressive, spontaneous, phasic, augmentation POP (R): compressive, spontaneous, phasic, augmentation DFV (R): compressive, spontaneous, phasic, augmentation PTV (R): compressive, spontaneous, phasic, augmentation GSV (R): compressive, spontaneous, phasic, augmentation SSV (R): compressive, spontaneous, phasic, augmentation Peroneals (R):compressive, spontaneous, phasic, augmentation GAS (R): compressive, spontaneous, phasic, augmentation Findings Color flow duplex of the right lower extremity demonstrates no evidence of superficial venous thrombophlebitis. Color flow duplex demonstrates no evidence of DVT of the following right lower extremity Vein:Common Femoral Vein, Femoral Vein, Popliteal Vein, Posterior Tibial Veins, Peroneal Veins. Conclusion Color flow duplex of the right lower extremity demonstrates no evidence of superficial venous thrombophlebitis. Color flow duplex demonstrates no evidence of DVT of the following right lower extremity Vein:Common Femoral Vein, Femoral Vein, Popliteal Vein, Posterior Tibial Veins, Peroneal Veins. Electronically signed by : Bigg Robledo MD 07/04/2020 16:48:09
== END ==
PROVIDERS: PCP Internal Medicine; Visit Provider Internal Medicine
DX: M79.604 Pain in right leg (principal); R60.0 Localized edema
CPT/HCPCS: 93971

== ENCOUNTER → 2020-07-18 07:21 | Outpatient (CLI) | payer MEDICARE, OTHER, SELFPAY ==
--- NOTE | 2020-07-18 07:21 | NM_ITS ---
APPROVED REPORT Exam: Nuclear Stress Test Indication: Chest pain, CAD, Hx of [place], HTN, High cholesterol, Family history, Dizziness Patient Location: Outpatient Stress Tech: Brittny Hernández [place] Tech:Geni De La Torre, ARRT, RT (R)(N) Ht: 5 ft 2 in Wt: 180 lbs Bra Size: C HR: 64 bpm BP: 181/73 mmHg BSA: 1.83 m2 BMI: 32.9 History: Chest pain, CAD, Hx of [place], HTN, High cholesterol, Family history, Dizziness Procedure: Patient received a 0.4 mg of intravenous Lexiscan, resting heart rate 64 bpm, resting blood pressure 181/73 mmHg, with Lexiscan maximum heart rate achived was 91 bpm which is Less than 85 % of the maximum predicted heart rate and blood pressure was 187/81 mmHg. With Lexiscan, patient denied any complaint of chest pain. Electrocardiogram Resting electrocardiogram showed sinus rhythm, with Lexiscan there is less than 1.[address] segment depression noted from the baseline EKG. The EKG portion of the Lexiscan is nondiagnostic. Cardiac Stress and Resting SPECT Images: Cardiac Stress and Resting SPECT images were obtained using technetium 99m Myoview 31.9 mCi stress and 10.67 mCi at rest. Gated SPECT for analysis of segmental wall motion and calculation of the ejection fraction also done. Prone images were also obtained. Cardiac stress and resting SPECT images show uniform myocardial activity without segmental perfusion abnormality, computer derived ejection fraction is 53% with no regional wall motion abnormality, right ventricle is normal size and contractility. Conclusion: 1. The EKG portion of the Lexiscan is nondiagnostic. 2. No scintigraphic evidence of reversible ischemia seen, computer derived ejection fraction is 53% with no regional wall motion abnormality, right ventricle is normal size and contractility. 3. Normal Lexiscan Myoview study. Electronically signed by : Akil Russell, 07/18/2020 18:46:25
--- NOTE | 2020-07-18 09:08 | HMH.ITSHM ---
Current Home Medications as stated by this patient Leonor Reardon or customer contact representative. []LISINOPRIL ESTRADIOL CLOPIDOGREL BISOPROLOL ATOVASTATIN
--- NOTE | 2020-07-18 09:10 | CA_ITS ---
APPROVED REPORT EXAM: Comprehensive 2D, Doppler, and color-flow Echocardiogram Mobility Manager: Mariel Syed, RT(R) Ht: 5 ft 2 in Wt: 188lbs BSA: 1.86 BP: 171/55 mmHg Indications: CP, murmur, SOB, HTN, hyperlipidemia, CAD, hx of rheumatic fever, stent, PVC, bigeminy history 2D Dimensions LVOT 1.92 cm (M/F) 1.5-2.5 LVEF (Carmen's) 68.30 % F: 54 - 74 LV Volume 52.10 mL F: 46 - 106 LV Volume Index 28.01 mL/m2 F: 29 - 61 LA Volume 34.40 mL LA Volume Index 18.49 mL/m2 (M/F) 16-34 M-Mode Dimensions RVDd 2.01 cm (0.9-2.6) LA Diam 3.70 cm (1.9-4.0) LVDd 4.82 cm (3.5-5.7) Ao Diam 2.13 cm (2.0-3.7) LVDs 3.53 cm (3.5-5.7) IVSd 0.91 cm (0.6-1.1) PWd 0.84 cm (0.6-1.1) EF (Teich) 52.20% FS 26.80% EDV (Teich) 108.60 mL ESV (Teich) 51.90 mL LV Diastology E Decel Time 213.00 (160-240 msec) E/A Ratio 0.8 MED E' 8.80 (< 7 cm/sec) E'/MED E' Ratio 9.27 (>14) LAT E' 11.80 (<10 cm/sec) E/LAT E' Ratio 6.92 (>14) Mitral Valve MV E Max Vladimir. 82.00 (40-130 cm/s) MV A Velocity 98.00 (40-130 cm/s) E/A Ratio 0.83 MV Decel. Time 213.00 (160-240 ms) MV PHT 62.00 ms Left Ventricle Left atrium is normal size, left ventricle is normal size, mild concentric left ventricular hypertrophy, visually estimated ejection fraction 55% with no regional wall motion abnormality, grade 1 diastolic dysfunction seen without tissue Doppler evidence of raise left atrial pressure. Right Ventricle Right atrium and right ventricle are normal size and contractility. Aortic Valve Aortic valve is minimally thickened and fibrosed, there is no aortic stenosis or aortic insufficiency. Mitral Valve Mitral valve is grossly normal, there is mild mitral regurgitation. Tricuspid Valve Tricuspid valve grossly normal, there is mild tricuspid regurgitation, tricuspid regurgitation jet velocity is inadequate for calculation of the right ventricular systolic pressure. Pulmonic Valve Pulmonic valve is poorly visualized. Great Vessels Aortic root is normal size. Pericardium No significant pericardial effusion noted. Conclusion 1. Mildly enlarged left atrium, normal left ventricular size, mild concentric left ventricular hypertrophy, visually estimated ejection fraction 55% with no regional wall motion abnormality, grade 1 diastolic dysfunction seen without tissue Doppler evidence of raise left atrial pressure. 2. Mild mitral and tricuspid regurgitation. 3. No significant pericardial effusion noted. Electronically signed by : Akil Russell, 07/18/2020 10:16:52
--- NOTE | 2020-07-18 09:19 | CA_ITS ---
APPROVED REPORT Exam: Pharmacologic Technologist: john song, Ht: 5 ft 2 in Wt: 188 lbs BSA: 1.86 m2 HR: 64 bpm BP: 181/73 mmHg Rhythm: NSR Indications: SOA,CP Medical History Medications: Lisinopril,,,,, CloPIdogrel,,,,, BisOPROLOL,,,,, LipTOR,,,,, Fumarate,,,,, Allergies: NKA Cardiac Risk Factors: HTN, Hyperlipidemia Stress Test Details Test: LEXISCAN HR Resting HR: 75 bpm Max Heart Rate (APMHR): 146.047490 bpm Max HR Achieved: 96 bpm Target HR (85% APMHR): 124.672070 bpm % of APMHR: 65.75 Recovery HR: 79 bpm BP Resting BP: 181.0/73.0 mmHg Max BP: 187.0/81.0 mmHg Recovery BP: 138.0/61.0 mmHg ECG Resting ECG: NSR Clinical Reason for Termination: Completed Protocol Exercise duration: 04:01 min Highest Stage Achieved: Exercise capacity: 1.0 METs Stress ECG Conclusion No positive symptoms. Frequent PVC's. Less 1.5mm ST Segment changes. Non-diagnostic. Electronically signed by : Akil Russell, 07/18/2020 18:36:58
== END ==
PROVIDERS: PCP Internal Medicine; Visit Provider Urology
DX: E78.2 Mixed hyperlipidemia (principal); I11.9 Hypertensive heart disease without heart failure; I25.110 Atherosclerotic heart disease of native coronary artery with unstable angina pectoris; I49.3 Ventricular premature depolarization; I49.8 Other specified cardiac arrhythmias; R07.2 Precordial pain; Z86.79 Personal history of other diseases of the circulatory system; Z95.5 Presence of coronary angioplasty implant and graft
CPT/HCPCS: 78452; 93017; 93306; A9502; J2785

== ENCOUNTER → 2020-07-19 09:16 | Outpatient (POV) | payer MEDICARE, OTHER, SELFPAY | PROVIDERS: Visit Provider Dermatology | DX: Z00.00 Encounter for general adult medical examination without abnormal findings (principal) ==

== ENCOUNTER 2020-08-27 22:41 | Emergency (ER) | payer MEDICARE, OTHER, SELFPAY ==
[2020-08-27 22:51] VITALS: BMI 32.9
[2020-08-27 22:52] VITALS: BP 160/77; PULSE 69; RESP 16; TEMP 36.6; O2SAT 98; BMI 32.9
--- NOTE | 2020-08-27 23:14 | HMH.EDWNDL ---
ED Disposition Clinical Impression: Laceration of hand Qualifiers: Encounter type: initial encounter Foreign body presence: without foreign body Laterality: left Qualified Code(s): S61.412A - Laceration without foreign body of left hand, initial encounter Disposition: Home, Self-Care Condition on Discharge: Good Instructions: DI for Laceration Repair Additional Instructions: suture out 10 days Referrals: Boston Ziegler [Primary Care Provider] - - Critical Care Critical Care Time: No Attestation: On 08/27/20, the high probability of a clinically significant, sudden or life threatening deterioration of the following system(s) required my full and direct attention, intervention and personal management. The time I documented below is in addition to time spent performing reported procedures but includes the following listed in this critical care notation. Medical Decision Making - Medical Records Medical records reviewed: Yes: I reviewed the patient's medical records. - Mohan Inquiry Pt receiving controlled substance: No Vital Signs: 08/27/20 22:52 Temperature 97.8 F Temperature Source Oral Pulse Rate [Right Brachial] 69 Respiratory Rate 16 Blood Pressure [Right Arm] 160/77 H Blood Pressure Mean [Right Arm] 104 Blood Pressure Source [Right Arm] Automatic Cuff Blood Pressure Position [Right Arm] Sitting 02 Sat by Pulse Oximetry 98 Oxygen Delivery Method Room Air Orders (Tests/Meds): ED MEDICATIONS Discontinued Medications Generic Name Dose Route Start Last Admin Trade Name Freq PRN Reason Stop Dose Admin Tetanus/Diphtheria Toxoids 0.5 ml 08/27/20 22:51 08/27/20 23:01 Tetanus-Diphth Toxoid, Adult 0.5ml Syr IM 08/27/20 22:52 0.5 ml .ONCE ONE Administration Wound/Laceration HPI - General Chief Complaint: Wound/Laceration Stated Complaint: AO cut L hand 1700 Time Seen by Provider: 08/27/20 23:00 Mode of Arrival: Family Vehicle Source of Information: Patient, Spouse, Medical Record Limitations: No Limitations Description of Symptoms (Recalled from ER Triage Doc. by RN): laceration to left hand between thumb and index finger that occurred while slicing peaches approx 8 hours ago; states they have changed the bandage 4x and it won't stop bleeding through the bandage. needs tetanus updated - History of Present Illness HPI narrative: lac this afternoon to lt hand with paring knife Onset (ago): hour(s) Extremity Location: Left: hand Place: home Patient tetanus UTD: No Context: sharp object use - Related Data Home Medications Medication Instructions Recorded Confirmed estradiol 1 gm VAGINAL DIRECTED PRN g 10/27/19 07/20/20 atorvastatin 40 mg tablet 20 mg PO HS tab 07/05/20 07/20/20 bisoprolol fumarate 5 mg tablet 5 mg PO DAILY tab 07/20/20 07/20/20 lisinopril 5 mg tablet 2.5 mg PO DAILY tab 07/20/20 07/20/20 Previous Rx's Medication Instructions Recorded clopidogrel 75 mg tablet 75 mg PO DAILY #90 tab 03/25/20 methylprednisolone 4 mg tablets in See Rx Instructions PO PER PKG DIR 07/20/20 a dose pack #21 tab Allergies Allergy/AdvReac Type Severity Reaction Status Date / Time No Known Allergies Allergy Verified 07/20/20 11:10 [facility] History - Hepatitis A Screen Drug use history?: No High risk sexual behaviors?: No History of sexually transmitted infection?: No Currently employed?: No Childcare worker?: No Do you have indoor plumbing?: Yes Do you have electricity?: Yes Attestation statement:: This patient has been screened for Hepatitis A risk factors. I have reviewed the patient's past medical history: Yes Medical History: Reports:: Coronary Artery Disease, Heart Murmur, Hyperlipidemia, Hypertension, Myocardial Infarction, Transient Ischemic Attacks (TIA) Denies:: Anxiety, Asthma, Cancer, Diabetes Mellitus Type 1, Diabetes Mellitus Type 2, MRSA, Seizures Other Medical History: Reports: Anemia, Arthritis Comment: heart attack , 06/16/17ronaldo
[2020-08-27 23:25] VITALS: BP 177/87; PULSE 68; RESP 18; TEMP 36.7; O2SAT 17
== END 2020-08-27 23:32 | disposition home or self-care (01) ==
PROVIDERS: Emergency Provider Emergency Medicine; PCP Internal Medicine
DX: S61.412A Laceration without foreign body of left hand, initial encounter (principal); W26.0XXA Contact with knife, initial encounter; Y92.010 Kitchen of single-family (private) house as the place of occurrence of the external cause; E78.5 Hyperlipidemia, unspecified; I10 Essential (primary) hypertension; I25.2 Old myocardial infarction; Z23 Encounter for immunization; I25.10 Atherosclerotic heart disease of native coronary artery without angina pectoris
CPT/HCPCS: 12001; 90471; 90714; 99282

== ENCOUNTER → 2021-01-03 12:07 | Outpatient (POV) | payer MEDICARE, OTHER, SELFPAY | PROVIDERS: Visit Provider Dermatology | DX: Z00.00 Encounter for general adult medical examination without abnormal findings (principal) ==

== ENCOUNTER → 2021-01-16 17:49 | Outpatient (CLI) | payer MEDICARE, OTHER, SELFPAY ==
[2021-01-16 18:52] LABS: Alanine Aminotransferase 14 U/L (12-78); Albumin/Globulin Ratio 1.7 (1.1-1.8); Alkaline Phosphatase 77 U/L (38-126); Aspartate Amino Transferase 25 U/L (14-36); Bilirubin,Total 0.5 mg/dl (0.2-1.3); Blood Urea Nitrogen 17 mg/dl (7-17); Calcium 9.2 mg/dl (8.4-10.2); Carbon Dioxide 27 mmol/L (22.0-30.0); Chloride 106 mmol/L (98-107); Chol/HDL Ratio 2.8 (1-3.5); Cholesterol 142 mg/dl (140-200); Estimated Glomerular Filt Rate 82 ml/min (>60); GFR (African American) 99 ML/MIN (>60); Globulin 2.4 g/dL (1.3-3.2); Glucose 65 mg/dl (74-100); HDL Cholesterol 50 mg/dl (40-60); Sodium 138 mmol/L (136-145); Total Protein,Serum 6.4 g/dl (6.3-8.2); Triglycerides 84 mg/dl (30-150); VLDL Cholesterol 17 mg/dL (0-40)
[2021-01-16 19:03] LABS: Direct LDL Cholesterol 70.34 mg/dL (100-129)
== END ==
PROVIDERS: Visit Provider Internal Medicine
DX: I25.10 Atherosclerotic heart disease of native coronary artery without angina pectoris (principal); I10 Essential (primary) hypertension; E78.5 Hyperlipidemia, unspecified; M15.0 Primary generalized (osteo)arthritis
CPT/HCPCS: 80053; 80061

== ENCOUNTER → 2021-03-16 10:42 | Outpatient (CLI) | payer MEDICARE, OTHER, SELFPAY ==
--- NOTE | 2021-03-16 10:42 | MM_ITS ---
PROCEDURE INFORMATION: Exam: MG Bilateral Screening 3D Mammography Exam date and time: 03/16/2021 10:42 AM Age: 75 years old Clinical indication: Encounter for screening mammogram for malignant neoplasm of breast TECHNIQUE: Imaging protocol: Bilateral screening tomosynthesis and 2D mammography including computer-aided detection (CAD) when performed. COMPARISON: 1. MG MM DIG SCREENING MAMM BI W/CAD 03/15/2020 10:04 AM 2. MG MM DIG SCREENING MAMM BI W/CAD 02/26/2019 9:57 AM FINDINGS: MAMMOGRAPHY: Breast composition: The breasts are almost entirely fatty. Mass: None. Architectural distortion: None. Calcifications: No suspicious calcifications. Asymmetric density: None. Skin thickening: None. Axillary adenopathy: None. IMPRESSION: No mammographic evidence of malignancy. Annual screening is recommended unless otherwise clinically indicated. ASSESSMENT: BI-RADS Category 1: Negative
== END ==
PROVIDERS: PCP Internal Medicine; Visit Provider Obstetrics & Gynecology
DX: Z12.31 Encounter for screening mammogram for malignant neoplasm of breast (principal)
CPT/HCPCS: 77063; 77067

== ENCOUNTER → 2021-04-11 09:17 | Outpatient (POV) | payer MEDICARE, OTHER, SELFPAY | PROVIDERS: Visit Provider Dermatology | DX: Z00.00 Encounter for general adult medical examination without abnormal findings (principal) ==

== ENCOUNTER → 2021-08-09 13:22 | Outpatient (CLI) | payer MEDICARE, OTHER, SELFPAY ==
[2021-08-09 14:51] LABS: Basophils # 0.1 K/mm3 (0-0.2); Eosinophils # 0.2 K/mm3 (0.0-0.4); Eosinophils % 2.7 % (0.1-12.0); Hematocrit 42.4 % (37.0-47.0); Hemoglobin 13.4 g/dL (12.2-16.2); Lymphocytes # 1.8 K/mm3 (0.7-4.5); Mean Corpuscular HGB Conc 31.5 g/dL (31.8-35.4); Mean Corpuscular Hemoglobin 29.6 pg (27.0-31.2); Mean Corpuscular Volume 93.9 fl (81-99); Mean Platelet Volume 8.9 fl (7.4-10.4); Monocytes # 0.5 K/mm3 (0.1-1.0); Monocytes % 6.1 % (1.7-9.3); Neutrophils # 4.8 K/mm3 (1.8-7.8); Neutrophils % 65.2 % (37.0-80.0); Platelet Count 285 K/mm3 (142-424); Red Blood Count 4.51 M/mm3 (4.20-5.40); Red Cell Distribution Width 13.9 % (11.5-17.5); White Blood Count 7.4 K/mm3 (4.8-10.8)
[2021-08-09 15:28] LABS: Alanine Aminotransferase 18 U/L (12-78); Albumin/Globulin Ratio 1.7 (1.1-1.8); Alkaline Phosphatase 88 U/L (38-126); Anion Gap 10.7 mEq/L (5-15); Aspartate Amino Transferase 30 U/L (14-36); Bilirubin,Total 0.6 mg/dl (0.2-1.3); Blood Urea Nitrogen 21 mg/dl (7-17); Calcium 9.4 mg/dl (8.4-10.2); Carbon Dioxide 28 mmol/L (22.0-30.0); Chloride 104 mmol/L (98-107); Chol/HDL Ratio 3.2 (1-3.5); Cholesterol 152 mg/dl (140-200); Estimated Glomerular Filt Rate 82 ml/min (>60); GFR (African American) 99 ML/MIN (>60); Globulin 2.4 g/dL (1.3-3.2); Glucose 88 mg/dl (74-100); HDL Cholesterol 47 mg/dl (40-60); Magnesium 1.9 mg/dl (1.6-2.3); Potassium 4.7 mmoL/L (3.5-5.1); Sodium 138 mmol/L (136-145); Total Protein,Serum 6.4 g/dl (6.3-8.2); Triglycerides 100 mg/dl (30-150); VLDL Cholesterol 20 mg/dL (0-40)
[2021-08-09 15:39] LABS: Direct LDL Cholesterol 70.34 mg/dL (100-129)
== END ==
PROVIDERS: PCP Internal Medicine; Visit Provider Internal Medicine
DX: I10 Essential (primary) hypertension (principal); I25.10 Atherosclerotic heart disease of native coronary artery without angina pectoris; I49.3 Ventricular premature depolarization; E78.5 Hyperlipidemia, unspecified; M15.0 Primary generalized (osteo)arthritis
CPT/HCPCS: 80053; 80061; 83735; 85025

== ENCOUNTER → 2022-01-24 11:23 | Outpatient (CLI) | payer MEDICARE, OTHER, SELFPAY ==
--- NOTE | 2022-01-24 11:29 | XR_ITS ---
FINAL REPORT CLINICAL HISTORY: COUGH,WHEEZING,RALES,L LUNG BASE COMPARISON: 06/26/2020 FINDINGS: TWO-VIEW CHEST The heart size is normal. The mediastinum is normal. The lungs are clear. There is no pneumothorax. IMPRESSION: No acute cardiopulmonary process. Reviewed, Interpreted and Dictated by Ketan Nails MD Transcribed by Laverne Blevins Authenticated and [facility]
== END ==
PROVIDERS: PCP Internal Medicine; Visit Provider Internal Medicine
DX: R05.9 Cough, unspecified (principal); R06.2 Wheezing; R06.89 Other abnormalities of breathing
CPT/HCPCS: 71046

== ENCOUNTER → 2022-02-09 13:14 | Outpatient (CLI) | payer MEDICARE, OTHER, SELFPAY ==
[2022-02-09 18:37] LABS: Alanine Aminotransferase 20 U/L (12-78); Albumin Level 3.7 g/dl (3.5-5.0); Albumin/Globulin Ratio 1.5 (1.1-1.8); Alkaline Phosphatase 79 U/L (38-126); Anion Gap 11.2 mEq/L (5-15); Aspartate Amino Transferase 26 U/L (14-36); Bilirubin,Total 0.9 mg/dl (0.2-1.3); Blood Urea Nitrogen 24 mg/dl (7-17); Calcium 9.2 mg/dl (8.4-10.2); Carbon Dioxide 27 mmol/L (22.0-30.0); Chloride 107 mmol/L (98-107); Chol/HDL Ratio 2.9 (1-3.5); Cholesterol 160 mg/dl (140-200); Estimated Glomerular Filt Rate 54 ml/min (>60); GFR (African American) 65 ML/MIN (>60); Globulin 2.4 g/dL (1.3-3.2); Glucose 74 mg/dl (74-100); HDL Cholesterol 55 mg/dl (40-60); Potassium 4.2 mmoL/L (3.5-5.1); Sodium 141 mmol/L (136-145); Total Protein,Serum 6.1 g/dl (6.3-8.2); Triglycerides 104 mg/dl (30-150); VLDL Cholesterol 21 mg/dL (0-40)
[2022-02-09 18:48] LABS: Direct LDL Cholesterol 76.72 mg/dL (100-129)
== END ==
PROVIDERS: PCP Internal Medicine; Visit Provider Internal Medicine
DX: I25.10 Atherosclerotic heart disease of native coronary artery without angina pectoris (principal); I10 Essential (primary) hypertension; I49.3 Ventricular premature depolarization; E78.5 Hyperlipidemia, unspecified
CPT/HCPCS: 80053; 80061; 83735

== ENCOUNTER 2022-03-23 10:30 | Outpatient (RCR) | payer MEDICARE, OTHER, SELFPAY | END 2022-03-23 10:35 | disposition home or self-care (01) | LOC: PT 10:30 | PROVIDERS: PCP Internal Medicine; Visit Provider Podiatrist Foot & Ankle Surgery | DX: M65.871 Other synovitis and tenosynovitis, right ankle and foot (principal) | CPT/HCPCS: 97010; 97014; 97110; 97112; 97163; 97530; G0283 ==

== ENCOUNTER → 2022-06-11 10:55 | Outpatient (CLI) | payer MEDICARE, OTHER, SELFPAY ==
--- NOTE | 2022-06-11 10:59 | MR_ITS ---
FINAL REPORT CLINICAL HISTORY: RIGHT MEDIAL ANKLE PAIN, PT FELL 10 MONTHS AGO FINDINGS: Multiplanar MR imaging of the right ankle was performed without contrast. Achilles tendon is intact. The plantar fascia is intact. There is a moderate plantar spur. There is a small os trigonum measuring 5 mm. The bony structures are intact without evidence of fracture, bone bruise or marrow edema. No osteochondral lesion is identified. The ligaments are intact without evidence of injury. There is fluid signal intensity overlying the anterolateral ankle that appears draped over the lateral navicular. This does not conform to a tendon sheath that may represent a ganglion cyst measuring 2.7 x 2.0 cm. There is fluid in the peroneal tendon sheath and the posterior tibial tendon sheath. The underlying tendons appear intact. No significant joint effusion is seen. The musculature is intact. There is no evidence of soft tissue mass or cyst. IMPRESSION: Fluid signal intensity structure over the lateral navicular may be due to a ganglion cyst. Mild fluid in the posterior tibial and peroneal tendon sheaths may be due to mild tenosynovitis. Reviewed, Interpreted and Dictated by Ketan Nails MD Transcribed by Neel Celis Authenticated and [facility]
== END ==
PROVIDERS: PCP Internal Medicine; Visit Provider Internal Medicine
DX: M25.571 Pain in right ankle and joints of right foot (principal)
CPT/HCPCS: 73721

== ENCOUNTER → 2022-06-12 07:59 | Outpatient (CLI) | payer MEDICARE, OTHER, SELFPAY ==
--- NOTE | 2022-06-12 08:04 | CA_ITS ---
FINAL REPORT CLINICAL HISTORY: stephane FINDINGS: An ultrasound of the carotid arteries was performed. Duplex Doppler evaluation with spectral analysis was performed. The peak systolic velocity of the right common carotid artery is 91 cm/s. The peak systolic velocity of the right internal carotid artery is 110 cm/s and end diastolic velocity 32 cm/s. A small amount of plaque is present. The right external carotid artery is patent. The right vertebral artery is patent with antegrade flow. ICA/CCA ratio: 1.4 The peak systolic velocity of the left common carotid artery is 83 cm/s. The peak systolic velocity of the left internal carotid artery is 133 cm/s and end diastolic velocity 37 cm/s. A small amount of plaque is present. The left external carotid artery is patent. The left vertebral artery is patent with antegrade flow. ICA/CCA ratio: 2.3 Bilateral patent vertebral arteries with antegrade flow. IMPRESSION: Less than 50% bilateral carotid stenosis. Reviewed, Interpreted and Dictated by Ketan Nails MD Transcribed by Neel Celis Authenticated and [facility]
== END ==
PROVIDERS: PCP Internal Medicine; Visit Provider Nurse Practitioner Family
DX: E78.2 Mixed hyperlipidemia (principal); I11.9 Hypertensive heart disease without heart failure; I25.110 Atherosclerotic heart disease of native coronary artery with unstable angina pectoris; I49.3 Ventricular premature depolarization; Z95.5 Presence of coronary angioplasty implant and graft; R60.0 Localized edema; I65.23 Occlusion and stenosis of bilateral carotid arteries
CPT/HCPCS: 93306; 93880

== ENCOUNTER → 2022-06-26 14:12 | Outpatient (CLI) | payer MEDICARE, OTHER, SELFPAY ==
--- NOTE | 2022-06-26 14:18 | CA_ITS ---
FINAL REPORT TECHNIQUE: Color Doppler, duplex Doppler and compression sonography of the right lower extremity venous system was performed. CLINICAL HISTORY: CALF PAIN ,PT FELL LAST SEPTEMBER HURT RT ANKLE STILL HAVING PAIN FINDINGS: There is no evidence of deep venous thrombosis from the level of the groin to the calf. The veins are patent and compressible. IMPRESSION: No evidence of deep venous thrombosis right lower extremity. Reviewed, Interpreted and Dictated by Cior Gonsales III, MD Transcribed by Laverne Blevins Authenticated and [facility]
--- NOTE | 2022-06-26 14:38 | MM_ITS ---
PROCEDURE INFORMATION: Exam: MG Bilateral Screening 3D Mammography Exam date and time: 06/26/2022 2:41 PM Age: 77 years old Clinical indication: Screening examination TECHNIQUE: Imaging protocol: Bilateral Screening tomosynthesis and 2D mammography including computer-aided detection (CAD) when performed. COMPARISON: 1. MG MM DIG SCREENING MAMM BI W/CAD 03/16/2021 10:42 AM 2. MG MM DIG SCREENING MAMM BI W/CAD 03/15/2020 10:04 AM FINDINGS: MAMMOGRAPHY: Breast composition: The breasts are almost entirely fatty. Mass: None. Architectural distortion: None. Calcifications: No suspicious calcifications. Asymmetric density: None. Skin thickening: None. Axillary adenopathy: None. IMPRESSION: No mammographic evidence of malignancy. Annual screening is recommended unless otherwise clinically indicated. ASSESSMENT: BI-RADS Category 1: Negative
== END ==
PROVIDERS: PCP Internal Medicine; Visit Provider Podiatrist
DX: M79.604 Pain in right leg (principal); Z12.31 Encounter for screening mammogram for malignant neoplasm of breast
CPT/HCPCS: 77063; 77067; 93971

== ENCOUNTER → 2022-07-05 15:25 | Outpatient (CLI) | payer MEDICARE, OTHER, SELFPAY ==
--- NOTE | 2022-07-05 15:26 | MR_ITS ---
PROCEDURE INFORMATION: Exam: MR Right Lower Extremity Without Contrast, Tibia Fibula Exam date and time: 07/05/2022 4:11 PM Age: 77 years old Clinical indication: Pain; Lower leg; Right; Additional info: Evaluate calf, tendon injury, conner cyst. Mid to lower leg pain. No recent injury or trauma TECHNIQUE: Imaging protocol: Magnetic resonance imaging of the right lower extremity without contrast. Exam focused on the tibia and fibula. COMPARISON: MR ANKLE RT WO CON 06/11/2022 12:00 PM FINDINGS: Bones/joints: There are findings suggesting horizontal lateral meniscus tear in the right knee. Mild degenerative changes noted in the right knee and right ankle. Synovial and meniscal cysts: Small Conner's cysts noted in the knee. Soft tissues: There is mild soft tissue swelling of the medial aspect of the ankle. Small amount of fluid noted in the posterior tibial tendon sheath and peroneal tendon sheath at the level of the ankle. IMPRESSION: 1. Horizontal tear of the lateral meniscus in the right knee 2. Mild tenosynovitis involving the posterior tibial tendon and peroneal tendons at the level of the ankle
--- NOTE | 2022-07-05 17:22 | XR_ITS ---
PROCEDURE INFORMATION: Exam: XR Right Foot Complete; Alignment Exam date and time: 07/05/2022 5:24 PM Age: 77 years old Clinical indication: Pain; Foot; Right; Additional info: Foot pain TECHNIQUE: Imaging protocol: Radiologic exam of the right foot. Views: 3 or more views. COMPARISON: MR LOWER LEG RT WO CON 07/05/2022 4:11 PM FINDINGS: Bones/joints: There is mild hallux valgus and moderate pes planus. Osseous alignment is otherwise normal. No acute fracture. Moderate plantar calcaneal spurring noted Soft tissues: Normal. IMPRESSION: Chronic osseous changes as described. No acute abnormality evident
--- NOTE | 2022-07-05 17:22 | XR_ITS ---
PROCEDURE INFORMATION: Exam: XR Left Ankle Exam date and time: 07/05/2022 5:24 PM Age: 77 years old Clinical indication: Pain; Ankle; Left; Additional info: Foot pain TECHNIQUE: Imaging protocol: Radiologic exam of the left ankle. Views: 3 or more views. COMPARISON: No relevant prior studies available. FINDINGS: Bones/joints: There is moderate pes planus and plantar calcaneal spurring. Ankle joint appears normal. No acute fracture. Soft tissues: Soft tissue swelling of the lower leg and ankle noted IMPRESSION: Soft tissue swelling and chronic osseous changes as described
--- NOTE | 2022-07-05 17:22 | XR_ITS ---
PROCEDURE INFORMATION: Exam: XR Left Foot Complete; Alignment Exam date and time: 07/05/2022 5:24 PM Age: 77 years old Clinical indication: Pain; Foot; Left; Additional info: Foot pain TECHNIQUE: Imaging protocol: Radiologic exam of the left foot. Views: 3 or more views. COMPARISON: No relevant prior studies available. FINDINGS: Bones/joints: There is moderate place planus in plantar calcaneal spurring. Osseous alignment is otherwise normal. No acute fracture or significant arthritic change. Soft tissues: Normal. IMPRESSION: Moderate pes planus and plantar calcaneal spurring. No acute abnormality
--- NOTE | 2022-07-05 17:22 | XR_ITS ---
PROCEDURE INFORMATION: Exam: XR Right Ankle Exam date and time: 07/05/2022 5:24 PM Age: 77 years old Clinical indication: Pain; Ankle; Right; Additional info: Foot pain TECHNIQUE: Imaging protocol: Radiologic exam of the right ankle. Views: 3 or more views. COMPARISON: MR ANKLE RT WO CON 06/11/2022 12:00 PM FINDINGS: Bones/joints: There is moderate pes planus. Osseous alignment is otherwise normal. No acute fracture. Mild degenerative changes noted ankle. Moderate plantar calcaneal spurring is present. Soft tissues: Moderate soft tissue swelling of the lower leg and ankle noted IMPRESSION: No acute fracture. Soft tissue swelling and chronic osseous changes as described
== END ==
PROVIDERS: PCP Internal Medicine; Visit Provider Podiatrist
DX: M67.40 Ganglion, unspecified site (principal); M76.61 Achilles tendinitis, right leg; M79.661 Pain in right lower leg; M79.671 Pain in right foot; M79.672 Pain in left foot
CPT/HCPCS: 73610; 73630; 73718

== ENCOUNTER → 2022-07-24 13:46 | Outpatient (CLI) | payer MEDICARE, OTHER, SELFPAY ==
--- NOTE | 2022-07-24 13:51 | XR_ITS ---
FINAL REPORT CLINICAL HISTORY: right knee pain FINDINGS: RIGHT KNEE: Three views of the right knee were obtained. There is no acute fracture or dislocation. There are mild degenerative changes. A small joint effusion is present. Soft tissues are unremarkable. IMPRESSION: No acute bony abnormality. Small joint effusion. Reviewed, Interpreted and Dictated by Ciro Gonsales III, MD Transcribed by Kristen Mahan Authenticated and [facility]
== END ==
PROVIDERS: PCP Internal Medicine; Visit Provider Orthopaedic Surgery
DX: S83.281A Other tear of lateral meniscus, current injury, right knee, initial encounter (principal)
CPT/HCPCS: 73562

== ENCOUNTER → 2022-08-03 11:41 | Outpatient (CLI) | payer MEDICARE, OTHER, SELFPAY ==
[2022-08-03 12:20] LABS: Basophils % 0.6 % (0.1-2.0); Eosinophils # 0.2 K/mm3 (0.0-0.4); Eosinophils % 3.1 % (0.1-12.0); Hematocrit 41.3 % (37.0-47.0); Hemoglobin 13.1 g/dL (12.2-16.2); Lymphocytes % 29.7 % (10-50); Mean Corpuscular HGB Conc 31.7 g/dL (31.8-35.4); Mean Corpuscular Hemoglobin 29.5 pg (27.0-31.2); Mean Corpuscular Volume 92.9 fl (81-99); Mean Platelet Volume 9.1 fl (7.4-10.4); Monocytes # 0.6 K/mm3 (0.1-1.0); Monocytes % 8.1 % (1.7-9.3); Neutrophils % 58.5 % (37.0-80.0); Platelet Count 237 K/mm3 (142-424); Red Blood Count 4.45 M/mm3 (4.20-5.40); Red Cell Distribution Width 12.9 % (11.5-17.5); White Blood Count 6.9 K/mm3 (4.8-10.8)
[2022-08-03 12:45] LABS: Alanine Aminotransferase 19 U/L (12-78); Albumin/Globulin Ratio 1.8 (1.1-1.8); Alkaline Phosphatase 85 U/L (38-126); Anion Gap 14.4 mEq/L (5-15); Aspartate Amino Transferase 26 U/L (14-36); Bilirubin,Total 0.6 mg/dl (0.2-1.3); Blood Urea Nitrogen 18 mg/dl (7-17); Calcium 8.9 mg/dl (8.4-10.2); Carbon Dioxide 25 mmol/L (22.0-30.0); Chloride 107 mmol/L (98-107); Estimated Glomerular Filt Rate 70 ml/min (>60); GFR (African American) 84 ML/MIN (>60); Globulin 2.2 g/dL (1.3-3.2); Glucose 91 mg/dl (74-100); Potassium 4.4 mmoL/L (3.5-5.1); Sodium 142 mmol/L (136-145); Total Protein,Serum 6.2 g/dl (6.3-8.2)
== END ==
PROVIDERS: PCP Orthopaedic Surgery; Visit Provider Orthopaedic Surgery
DX: R07.2 Precordial pain (principal); Z01.818 Encounter for other preprocedural examination
CPT/HCPCS: 36415; 80053; 85025

== ENCOUNTER 2022-08-10 08:45 | Day surgery (SDC) | payer MEDICARE, OTHER, SELFPAY ==
[2022-08-09 14:55] VITALS: BMI 35.8
[2022-08-10] VITALS (11 sets, daily range): BP systolic 130–186; BP diastolic 69–84; PULSE 61–74; RESP 14–18; TEMP 36.3–43; O2SAT 95–99
--- NOTE | 2022-08-10 09:09 | XR_ITS ---
FINAL REPORT CLINICAL HISTORY: hypertension, hx [place] COMPARISON: 01/24/2022 FINDINGS: The heart size is normal. The mediastinum is normal. There is no focal infiltrate or edema. There are no pleural effusions. There is no pneumothorax. There is no osseous abnormality. There are 2 small metallic anchors identified in the humeral head. IMPRESSION: No acute cardiopulmonary process Reviewed, Interpreted and Dictated by Ketan Nails MD Transcribed by Leah Harding Authenticated and . [facility]
--- NOTE | 2022-08-10 09:19 | ECG_ITS ---
APPROVED REPORT Exam: Resting ECG HR:58 bpm ECG Measurements Heart Rate 58 AXES IA 201 P 53 QRSd 89 QRS 1 QT 397 T 50 QTc 394 Conclusion SINUS BRADYCARDIA BORDERLINE ECG UNCONFIRMED REPORT Electronically signed by : Jose Schmid MD 08/11/2022 07:02:44
--- NOTE | 2022-08-10 09:57 | EXP.ANES.CKL ---
[facility] Disclaimer: The information contained in this section may have been updated after the patient was seen, as this information can be updated by other users. Medical History CAD (coronary artery disease) Carotid artery stenosis Diastolic dysfunction Edema of both lower extremities History of left heart catheterization History of rheumatic fever Hyperlipidemia PVC (premature ventricular contraction) Sinus bradycardia Surgical History H/O arthroscopy of left knee H/O total hysterectomy History of appendectomy History of arthroplasty of left shoulder History of lumpectomy of left breast Hx of colonoscopy Hx of tonsillectomy Stented coronary artery Family History Other Cancer Stroke Social History Smoking Status: Never smoker second hand exposure: Yes alcohol intake: never substance use type: denies use current occupational status: retired Travel in the last 8 weeks: Inside the [place] household members: spouse housing: house current occupational exposures/hazards: No caffeine: Yes [facility] Anesthesia Checklist Patient Identification Patient Identification: Arm Band Structural Data Admitted From: Home Planned Operative Procedure/s: Right Knee Arthroscopy Consent for Planned Operative Procedure(s) Verified: Yes Verified Documents: Surgical Consent and History and Physical NPO Status Verified Time NPO: 00:00 Additional verifications Anesthesia Reactions: No Hx Blood Transfusions: No Blood Transfusion Reaction: No Airway Assessment C-Spine Mobility Assessed: Yes TMJ Mobility Assessed: Yes Dentition: Good Dentition Neurological Assessment Level of Consciousness: Awake and Alert Anesthesia Plan Anesthesia Risk discussed: Yes Anesthesia Plan: Verified ASA Class: III Anesthesia Type: General
--- NOTE | 2022-08-10 11:06 | SUR.PREOP ---
1100-assisted patient to BR and back to stretcher. Patient stated she was comfortable
--- NOTE | 2022-08-10 12:55 | EXP.OP.NOTE ---
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 Right knee marked with yes my initials. Transported operative suite placed upon the operating bed. General anesthesia ministered airway secured. Right lower extremity was prepped and draped within the knee langford. Once prepped and draped final operative timeout performed to identify proper patient procedure and extremity. Everyone involved the case agreed. No count indication beginning. Did receive preoperative antibiotics. Marking pen was used to margie bony landmarks in the and standard portal sites. Esmarch was used exsanguinate extremity pneumatic tourniquet inflated to 300 mmHg. Skin knife is used to incise standard anterior lateral portal blunt with trocar placed in patellofemoral joint exchange with a camera swept directly into the medial joint line where anterior medial portal was made. Care was then switched into the medial portal and swept into the lateral joint line within the lateral joint line there was evidence of large complex tear of the posterior horn and body of the lateral meniscus and fraying and tearing of the anterior horn lateral meniscus using combination of straight biter and sucker shaver partial lateral meniscectomy was performed back to stable rim. Tensions brought to the intercondylar notch the ACL was seen and intact tensions brought to the medial joint line within the medial joint line the medial meniscus was intact the medial cartilage is well-preserved. Attention was then brought back in the medial and lateral gutters no pathology was seen. Attention was brought to the patellofemoral joint there is evidence of grade III chondromalacia diffusely in the trochlea. No further pathology seen camera was removed the joint was drained. Skin closed with nylon stitch. Sterile dressing placed from toe to thigh patient waken anesthesia taken recovery stable condition. Condition: stable Disposition: PACU Complications:: None apparent
--- NOTE | 2022-08-10 13:05 | P.PNANES_ITS ---
[facility] Anesthesia Record Part I Anesthesia Record I Intake, IV Amount: 800 Estimated blood loss (mL): 10 Urine output (mL): 0 Blood Products used (#): none Blood Pressure: 131/72 SaO2: 95 Pulse Rate: 74 Respiratory Rate: 14 Temperature: 97.5 F Patient is:: Drowsy and Stable Stable to PACU at:: 13:00
--- NOTE | 2022-08-10 14:07 | P.PNANES_ITS ---
[facility] Anesthesia Record Part II Anesthesia Record Part II Discharge Time: 13:30 Destination: Surgical Day Care (OP Surgery) PACU nurse assessment reviewed?: Yes Patient Condition:: Good Anesthesia Complications:: None Swallowing reflex intact?: Yes Cyanosis?: No Blood Pressure: 163/78 Pulse Rate: 72 Temperature: 97.4 F Mental Status: Alert & Oriented Pain level:: 5 Nausea and/or vomitting:: None Intake, IV Amount: 0
== END 2022-08-10 14:05 | disposition home or self-care (01) ==
PROVIDERS: PCP Internal Medicine; Visit Provider Orthopaedic Surgery
PROC: (CPT 29870; principal; 2022-08-10 10:15)
DX: S83.281A Other tear of lateral meniscus, current injury, right knee, initial encounter (principal); I10 Essential (primary) hypertension; I25.10 Atherosclerotic heart disease of native coronary artery without angina pectoris; Z79.899 Other long term (current) drug therapy; I65.23 Occlusion and stenosis of bilateral carotid arteries; M22.41 Chondromalacia patellae, right knee; M94.261 Chondromalacia, right knee
CPT/HCPCS: 29881; 71045; 93005; 96374; J2405

== ENCOUNTER → 2022-08-31 13:04 | Outpatient (CLI) | payer MEDICARE, OTHER, SELFPAY ==
[2022-08-31 14:52] LABS: Alanine Aminotransferase 19 U/L (12-78); Albumin Level 4.1 g/dl (3.5-5.0); Albumin/Globulin Ratio 1.8 (1.1-1.8); Alkaline Phosphatase 93 U/L (38-126); Anion Gap 14.7 mEq/L (5-15); Aspartate Amino Transferase 28 U/L (14-36); Bilirubin,Total 0.5 mg/dl (0.2-1.3); Blood Urea Nitrogen 15 mg/dl (7-17); Calcium 9.2 mg/dl (8.4-10.2); Carbon Dioxide 23 mmol/L (22.0-30.0); Chloride 107 mmol/L (98-107); Chol/HDL Ratio 3.2 (1-3.5); Cholesterol 169 mg/dl (140-200); Estimated Glomerular Filt Rate 81 ml/min (>60); GFR (African American) 98 ML/MIN (>60); Globulin 2.3 g/dL (1.3-3.2); Glucose 84 mg/dl (74-100); HDL Cholesterol 53 mg/dl (40-60); Magnesium 2.1 mg/dl (1.6-2.3); Potassium 4.7 mmoL/L (3.5-5.1); Sodium 140 mmol/L (136-145); Total Protein,Serum 6.4 g/dl (6.3-8.2); Triglycerides 113 mg/dl (30-150); VLDL Cholesterol 23 mg/dL (0-40)
[2022-08-31 14:53] LABS: Basophils % 0.5 % (0.1-2.0); Eosinophils # 0.2 K/mm3 (0.0-0.4); Eosinophils % 3.3 % (0.1-12.0); Hematocrit 41.7 % (37.0-47.0); Hemoglobin 13.3 g/dL (12.2-16.2); Lymphocytes # 1.5 K/mm3 (0.7-4.5); Lymphocytes % 25.6 % (10-50); Mean Corpuscular HGB Conc 31.9 g/dL (31.8-35.4); Mean Corpuscular Hemoglobin 28.2 pg (27.0-31.2); Mean Corpuscular Volume 88.2 fl (81-99); Mean Platelet Volume 9.1 fl (7.4-10.4); Monocytes # 0.4 K/mm3 (0.1-1.0); Monocytes % 6.9 % (1.7-9.3); Neutrophils # 3.7 K/mm3 (1.8-7.8); Neutrophils % 63.6 % (37.0-80.0); Platelet Count 260 K/mm3 (142-424); Red Blood Count 4.73 M/mm3 (4.20-5.40); Red Cell Distribution Width 13.1 % (11.5-17.5); White Blood Count 5.7 K/mm3 (4.8-10.8)
[2022-08-31 15:03] LABS: Direct LDL Cholesterol 85.84 mg/dL (100-129)
== END ==
PROVIDERS: PCP Internal Medicine; Visit Provider Internal Medicine
DX: I25.10 Atherosclerotic heart disease of native coronary artery without angina pectoris (principal); I10 Essential (primary) hypertension; I49.3 Ventricular premature depolarization; E78.5 Hyperlipidemia, unspecified; J30.9 Allergic rhinitis, unspecified; M15.0 Primary generalized (osteo)arthritis; M47.812 Spondylosis without myelopathy or radiculopathy, cervical region
CPT/HCPCS: 80053; 80061; 83735; 85025

== ENCOUNTER → 2022-12-11 08:48 | Outpatient (CLI) | payer MEDICARE, OTHER, SELFPAY ==
--- NOTE | 2022-12-11 | CA_ITS ---
APPROVED REPORT Exam: Pharmacologic Technologist: Katharine Metz, Ht: 5 ft 2 in Wt: 193 lbs BSA: 1.88 m2 HR: 77 bpm BP: 160/101 mmHg Rhythm: sinus bradycardia, PVCs Indications: CAD, palpitations Medical History Medical History: HTN, Hyperlipidemia Medications: Lisinopril,,,,, Atorvastatin,,,,, Estradiol,,,,, CloPIdogrel,,,,, BisOPROLOL,,,,, Hydrocodone-Acetaminophen,,,,, Allergies: No known drug allergies Cardiac Risk Factors: HTN, Hyperlipidemia, FHX of CAD Stress Test Details Test: LEXISCAN HR Resting HR: 58 bpm Max Heart Rate (APMHR): 144 bpm Max HR Achieved: 84 bpm Target HR (85% APMHR): 122 bpm % of APMHR: 58 Recovery HR: 71 bpm BP Resting BP: 160.0/101.0 mmHg Max BP: 183.0/70.0 mmHg Recovery BP: 139.0/68.0 mmHg ECG Resting ECG: Sinus bradycardia, frequent PVCs Stress ECG: No significant ST changes Arrhythmia: Frequent PVCs Clinical Exercise duration: 04:00 min Highest Stage Achieved: Exercise capacity: 1.0 METs Stress ECG Conclusion DURING INFUSION PATIENT HAD CHEST PRESSURE AND DYSPNEA. ECTOPY/ARRHYTHMIA: FREQUENT PVC'S. NO SIGNIFICANT ST CHANGES CONCLUSION UNREMARKABLE LEXISCAN STRESS TEST. FREQUENT PVCS ARE REPORTED AT REST AND AFTER ADMINISTRATION OF LEXISCAN. MYOVIEW IMAGES ARE REPORTED SEPARATELY. Test Summary REST . . . . . . . Resting REST 02:42 . . 58 . 160/101 . . Stage 1 . . . . . . . Myoview Injected Stage 1 01:00 . . 73 . . . . Stage 2 01:00 . . 80 . . . . Stage 3 . . . . . . . chest pressure Stage 3 01:00 . . 75 . 183/ 70 . . Stage 4 01:00 . . 72 . 153/ 53 . Stop exercise at 04:00 RECOVERY 01:00 . . 76 . 139/ 68 . . RECOVERY 02:00 . . 69 . 145/ 66 . . RECOVERY 03:00 . . 64 . 127/ 72 . . RECOVERY 04:00 . . 66 . 132/ 66 . . RECOVERY 04:05 . . 68 . 132/ 66 . . Electronically signed by : Louisa Estrada MD 12/11/2022 21:24:05
--- NOTE | 2022-12-11 08:48 | NM_ITS ---
APPROVED REPORT Exam: Nuclear Stress Test Indication: CAD, 3 STENTS, H/O CO, HTN, HYPERLIPIDEMIA, FM HX., PALPITATIONS Patient Location: Outpatient Stress Tech: Katharine Metz NH Tech:FROYLAN Berrios RT(R)(N) Ht: 5 ft 2 in Wt: 188 lbs Bra Size: C HR: 58 bpm BP: 160/101 mmHg BSA: 1.86 m2 Rhythm: NSR TID: 1.18 BMI: 34.3 History: CAD, 3 STENTS, H/O CO, HTN, HYPERLIPIDEMIA, FM HX., PALPITATIONS Procedure: Patient received 0.4 mg of intravenous Lexiscan, resting heart rate 58 bpm, resting blood pressure 160/101 mmHg, with Lexiscan maximum heart rate achieved was 80 bpm which is % of the maximum predicted heart rate and blood pressure was 183/70 mmHg. With Lexiscan, patient denied any complaint of chest pain. Cardiac Stress and Resting SPECT Images: Cardiac Stress and Resting SPECT images were obtained using technetium 99m Myoview 29.8 mCi stress and 10.82 mCi at rest. Raw images demonstrate significant soft tissue overlap with the cardiac borders. There is also significant GI radiotracer uptake. These may affect the diagnostic interpretation of the study findings. There is significantly reduced radiotracer uptake with supine stress imaging, and is therefore unanalyzable. Resting and stress imaging in prone position demonstrate no definite evidence of fixed or reversible perfusion defects. Gated imaging demonstrates low normal global and regional LV systolic function. LVEF is calculated at 52%. Conclusion: Raw images demonstrate significant soft tissue overlap with the cardiac borders. There is also significant GI radiotracer uptake. These may affect the diagnostic interpretation of the study findings. There is significantly reduced radiotracer uptake with supine stress imaging, and is therefore unanalyzable. Resting and stress imaging in prone position demonstrate no definite evidence of fixed or reversible perfusion defects. No definite evidence of reversible ischemia. Gated imaging demonstrates low normal global and regional LV systolic function. LVEF is calculated at 52%. Electronically signed by : Louisa Estrada MD 12/11/2022 21:31:20
== END ==
PROVIDERS: PCP Internal Medicine; Visit Provider Physician Assistant
DX: E78.5 Hyperlipidemia, unspecified (principal); I11.9 Hypertensive heart disease without heart failure; I25.110 Atherosclerotic heart disease of native coronary artery with unstable angina pectoris; I49.3 Ventricular premature depolarization; I65.29 Occlusion and stenosis of unspecified carotid artery; Z95.5 Presence of coronary angioplasty implant and graft
CPT/HCPCS: 78452; 93017; A9502; J2785

== ENCOUNTER 2023-01-03 08:21 | Outpatient (CLI) | payer MEDICARE, OTHER, SELFPAY ==
[2023-01-03] VITALS (9 sets, daily range): BP systolic 129–193; BP diastolic 56–77; PULSE 46–61; RESP 16–18; TEMP 36.5; O2SAT 95–99; BMI 35.3
--- NOTE | 2023-01-03 08:21 | CT_ITS ---
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 A noncontrast coronary calcium scan was performed. A CT attenuation threshold of 130 Hounsfield units (HU) was used for the detection of calcium in contiguous voxels of 1 sq mm in area to be counted as individual lesions. Bolus tracking in the ascending aorta with a threshold of 180 HU was performed. Immediately afterwards, ECG synchronized cardiac CT was then performed from the cardiac base to apex using retrospective gating with ECG tube current modulation. A total of 85 mL of Isovue 370 mg/mL contrast medium was administered at 5 mL/sec followed by a saline flush using a biphasic injection protocol. A tube voltage of 120 KVp was used. The patient received the following medications prior to the cardiac CT. 25 mg of oral metoprolol 0.8 mg of sublingual nitroglycerin The average heart rate at the time of acquisition was 68 bpm and regular, with frequent PVCs Image Reconstruction Transaxial images were reconstructed at 0.67 mm slide thickness. Data was reviewed interactively on an advanced workstation capable of 2 and 3-dimensional displays in all conventional reconstruction formats, including multiplanar reformations, maximum intensity projections, curved multiplanar reformations, and volume rendered reconstructions. When applicable, selected routine images describing the relevant coronary anatomy and pathology were saved and sent to PACS. Complications None Technical Quality Overall image quality was suboptimal due to very frequent PVCs and motion artifact. Coronary artery opacification was poor. Total DLP (Dose-Length Product) is 1967.6 mGy-cm. The reported value represents the total of one or more individual components during the CT acquisition of this date and at this time, and as such, the same value may appear in more than one CT report depending on the interpreting/reporting physicians. COMPARISON None FINDINGS Coronary CT Angiography Coronaries have normal origin and proximal course. The coronary arterial system is right dominant. Note: Stenosis is reported as maximum percentage diameter stenosis. Quantitative Stenosis Grading: Left Main (LM): The left main originates normally from the left sinus of Valsalva. The LM bifurcates into the left anterior descending artery and left circumflex artery. The LM is patent with no evidence of atherosclerosis. Left Anterior Descending (LAD) and Diagonal Branches: The LAD gives off 2 diagonal branches. Proximal LAD and diagnoal branch stents are visualized. The stented region within the proximal LAD cannot be reliably evaluated, but may appear to have significant flow reduction with minimal flow distally, suggestive of possible in-stent restenosis. However, findings are inconclusive due to significant motion artifact (due to frequent PVCs during image acquisition). Left Circumflex (LCX) and Obtuse Marginals (OM): The LCX gives off 1 Obtuse Marginal (OM) branch. The LCX and its branches are grossly patent with no evidence of significant atherosclerosis. Right Coronary Artery (RCA): Ostial/proximal RCA stent is present. The RCA originates normally from the right sinus of Valsalva. The RCA stent grossly appears patent with minimal in-stent restenosis < 30%, but more significant luminal narrowing within the stented region cannot be conclusively evaluated. The mid-RCA is not well visualized due to significant motion artifact. The distal RCA appears to have no luminal narrowing. Non-Coronary Cardiac Findings: Analysis of the left ventricular (LV) structure and function was performed after 3-D reconstruction of the LV from axial
[2023-01-03 09:20] LABS: Chloride 110 mmol/L (98-107); Potassium 3.9 mmoL/L (3.5-5.1); Sodium 141 mmol/L (136-145)
[2023-01-03 09:23] LABS: Anion Gap 9.9 mEq/L (5-15); Blood Urea Nitrogen 20 mg/dl (7-17); Carbon Dioxide 25 mmol/L (22.0-30.0); Creatinine Clearance Estimated 66 mL/min (50-200); Estimated Glomerular Filt Rate 70 ml/min (>60); GFR (African American) 84 ML/MIN (>60); Glucose 98 mg/dl (74-100)
--- NOTE | 2023-01-03 10:17 | PC.NURSE ---
Pt vss after nitro given. cta started.
--- NOTE | 2023-01-03 10:27 | PC.NURSE ---
test complete, vss. taken to post op for recovery
== END 2023-01-03 11:33 | disposition home or self-care (01) ==
PROVIDERS: PCP Internal Medicine; Visit Provider Physician Assistant
DX: E78.2 Mixed hyperlipidemia (principal); I25.110 Atherosclerotic heart disease of native coronary artery with unstable angina pectoris; I51.89 Other ill-defined heart diseases; M25.512 Pain in left shoulder; R07.2 Precordial pain; Z95.5 Presence of coronary angioplasty implant and graft
CPT/HCPCS: 75574; 80048; Q9967

== ENCOUNTER 2023-01-09 11:30 | Day surgery (SDC) | payer MEDICARE, OTHER, SELFPAY ==
[2023-01-09] VITALS (12 sets, daily range): BP systolic 90–169; BP diastolic 50–83; PULSE 50–66; RESP 16–20; TEMP 36.9; O2SAT 91–100; BMI 35.8
--- NOTE | 2023-01-09 | IR_ITS ---
APPROVED REPORT Patient Location: Outpatient PROCEDURES Left heart catheterization Left ventriculogram Selective coronary angiogram Intravascular lithotripsy to the ostial proximal dominant right coronary Drug-eluting stent deployment to the ostial proximal dominant right coronary INDICATION Coronary artery disease, In-stent restenosis, Angina pectoris, Abnormal CCTA, Informed consent was obtained prior to the procedure. COMPLICATIONS None Estimated Blood Loss: Less than 10 mls TECHNIQUE One percent lidocaine used to anesthetize the right anterior aspect of the wrist. The right radial artery was accessed via the Seldinger technique. A 6 [place] sheath was placed in the right radial artery. 2.5 mg of Verapamil, 800 mcg of nitroglycerin, 1mg Lidocaine and 5000 U Heparin were given through the arterial sheath. The papa catheter was also used to perform left heart catheterization, left ventriculogram and selective coronary angiogram. The diagnostic angiogram therapeutic heparin was administered giving a therapeutic ACT and the guide catheter was placed in the right coronary followed by Choice PT extra-support wire. A 3.5 x 12 mm lithotripsy balloon was deployed at 4 eri and a total of 80 pulsations were delivered to the ostial calcified segment. Following this a 3.5 x 15 mm [place] frontier stent was deployed at 20 eri and then the balloon was brought back into the right coronary cusp and deployed at 24 eri to further post dilate. CITLALLI-3 flow was present before and after the procedure. At the end the procedure the apparatus was removed sheath was removed and hemostasis was achieved and TR banding patient was transferred to the postop holding in stable condition ANGIOGRAPHIC RESULTS The left main artery Normal The left anterior descending artery Has a stent in the proximal segment which has proximal concentric 30 to 40% stenosis with remaining stent widely patent and excellent distal transitioning first diagonal artery has a stent originating from the LAD and the stent appears to have a 50% hazy ostial stenosis with 30% concentric in-stent restenosis The circumflex artery Nondominant giving rise to a large first obtuse marginal artery. There are 20% proximal and mid vessel stenoses in this large obtuse marginal artery The right coronary artery Is a dominant vessel which has an ostial 80 to 90% stenosis followed by 20% in-stent restenosis. There is excellent distal transitioning. The remaining right coronary artery is large dominant widely patent The TUCKER ventriculogram reveals Not performed The left ventricular end-diastolic pressure Not measured IMPRESSION Mild to moderate disease in the proximal LAD which represents in-stent restenosis as described above Severe in-stent restenosis in the ostial dominant right coronary Successful intravascular lithotripsy of the ostial right coronary artery followed by successful drug-eluting stent deployment reducing the stenosis to 0% PLAN 1. Dual antiplatelet therapy 2. Risk factor modification 3. Cardiac rehabilitation 4. Avoidance of tobacco products 5. Medical management for any coronary disease Electronically signed by : Britton Cali MD 01/09/2023 12:55:08
[2023-01-09 12:48] LABS: Basophils # 0.1 K/mm3 (0-0.2); Basophils % 0.7 % (0.1-2.0); Eosinophils # 0.5 K/mm3 (0.0-0.4); Eosinophils % 6.1 % (0.1-12.0); Hematocrit 40.6 % (37.0-47.0); Hemoglobin 13.5 g/dL (12.2-16.2); Lymphocytes % 22.6 % (10-50); Mean Corpuscular HGB Conc 33.3 g/dL (31.8-35.4); Mean Corpuscular Hemoglobin 30.6 pg (27.0-31.2); Monocytes # 0.6 K/mm3 (0.1-1.0); Monocytes % 6.7 % (1.7-9.3); Neutrophils # 5.6 K/mm3 (1.8-7.8); Neutrophils % 63.8 % (37.0-80.0); Platelet Count 272 K/mm3 (142-424); Red Blood Count 4.42 M/mm3 (4.20-5.40); Red Cell Distribution Width 13.4 % (11.5-17.5); White Blood Count 8.7 K/mm3 (4.8-10.8)
[2023-01-09 12:58] LABS: Blood Urea Nitrogen 19 mg/dl (7-17); Calcium 9.5 mg/dl (8.4-10.2); Carbon Dioxide 26 mmol/L (22.0-30.0); Chloride 105 mmol/L (98-107); Creatinine Clearance Estimated 67 mL/min (50-200); Estimated Glomerular Filt Rate 81 ml/min (>60); GFR (African American) 98 ML/MIN (>60); Glucose 93 mg/dl (74-100); Sodium 140 mmol/L (136-145)
[2023-01-09 13:36] LABS: CATHL Activated Clotting Time 333 SEC (74-125)
== END 2023-01-09 15:56 | disposition home or self-care (01) ==
LOC: CATHLAB 11:32
PROVIDERS: PCP Internal Medicine; Visit Provider Internal Medicine
DX: R94.39 Abnormal result of other cardiovascular function study (principal); T82.855A Stenosis of coronary artery stent, initial encounter; I25.118 Atherosclerotic heart disease of native coronary artery with other forms of angina pectoris; Z87.891 Personal history of nicotine dependence; I65.23 Occlusion and stenosis of bilateral carotid arteries; I11.9 Hypertensive heart disease without heart failure
CPT/HCPCS: 0715T; 80048; 85025; 85347; 92928; 93454; 99152; 99153; C1725; C1761; C1769; C1874; C9600; J1644; Q9967

== ENCOUNTER → 2023-01-17 11:53 | Outpatient (CLI) | payer MEDICARE, OTHER, SELFPAY ==
--- NOTE | 2023-01-17 11:55 | CA_ITS ---
FINAL REPORT CLINICAL HISTORY: T81.744V - Complication of other artery following a proce... FINDINGS: DUPLEX DOPPLER UPPER EXTREMITY TECHNIQUE: Axial and color Doppler waveform evaluation of the right radial artery was performed. FINDINGS: There is no evidence of right radial artery thrombosis or pseudoaneurysm. IMPRESSION: No evidence of right radial artery thrombosis or pseudoaneurysm. Reviewed, Interpreted and Dictated by Carmela Clark MD Transcribed by Kristen Mahan Authenticated and [facility]
== END ==
PROVIDERS: PCP Internal Medicine; Visit Provider Internal Medicine
DX: M25.431 Effusion, right wrist; T81.718A Complication of other artery following a procedure, not elsewhere classified, initial encounter; I72.8 Aneurysm of other specified arteries; R07.9 Chest pain, unspecified
CPT/HCPCS: 93931

== ENCOUNTER 2023-01-28 09:57 | Outpatient (RCR) | payer MEDICARE, OTHER, SELFPAY | END 2023-04-05 09:00 | disposition home or self-care (01) | LOC: PT 09:57 | PROVIDERS: Visit Provider Internal Medicine | DX: I25.10 Atherosclerotic heart disease of native coronary artery without angina pectoris (principal); Z95.5 Presence of coronary angioplasty implant and graft | CPT/HCPCS: 93798 ==

== ENCOUNTER → 2023-02-25 11:26 | Outpatient (CLI) | payer MEDICARE, OTHER, SELFPAY | LOC: RT 11:28 | PROVIDERS: PCP Internal Medicine; Visit Provider Physician Assistant | DX: I49.3 Ventricular premature depolarization (principal) | CPT/HCPCS: 93225 ==

== ENCOUNTER → 2023-02-27 12:42 | Outpatient (CLI) | payer MEDICARE, OTHER, SELFPAY ==
[2023-02-27 13:52] LABS: Chloride 109 mmol/L (98-107); Potassium 4.3 mmoL/L (3.5-5.1); Sodium 141 mmol/L (136-145)
[2023-02-27 13:54] LABS: Alanine Aminotransferase 18 U/L (12-78); Aspartate Amino Transferase 26 U/L (14-36); Blood Urea Nitrogen 21 mg/dl (7-17); Estimated Glomerular Filt Rate 70 ml/min (>60); GFR (African American) 84 ML/MIN (>60)
[2023-02-27 13:55] LABS: Albumin Level 4.1 g/dl (3.5-5.0); Albumin/Globulin Ratio 1.8 (1.1-1.8); Alkaline Phosphatase 80 U/L (38-126); Anion Gap 11.3 mEq/L (5-15); Bilirubin,Total 0.5 mg/dl (0.2-1.3); Calcium 8.9 mg/dl (8.4-10.2); Carbon Dioxide 25 mmol/L (22.0-30.0); Chol/HDL Ratio 2.8 (1-3.5); Cholesterol 122 mg/dl (140-200); Globulin 2.3 g/dL (1.3-3.2); Glucose 87 mg/dl (74-100); HDL Cholesterol 44 mg/dl (40-60); Magnesium 1.9 mg/dl (1.6-2.3); Total Protein,Serum 6.4 g/dl (6.3-8.2); Triglycerides 80 mg/dl (30-150); VLDL Cholesterol 16 mg/dL (0-40)
[2023-02-27 14:06] LABS: Direct LDL Cholesterol 57.85 mg/dL (100-129)
== END ==
PROVIDERS: PCP Internal Medicine; Visit Provider Internal Medicine
DX: I11.9 Hypertensive heart disease without heart failure (principal); I25.10 Atherosclerotic heart disease of native coronary artery without angina pectoris; I49.3 Ventricular premature depolarization; E78.5 Hyperlipidemia, unspecified; M15.0 Primary generalized (osteo)arthritis; M47.812 Spondylosis without myelopathy or radiculopathy, cervical region; Z95.9 Presence of cardiac and vascular implant and graft, unspecified; Z87.891 Personal history of nicotine dependence
CPT/HCPCS: 80053; 80061; 83735

== ENCOUNTER 2023-09-10 15:21 | Outpatient (CLI) | payer MEDICARE, OTHER, SELFPAY ==
[2023-09-10 14:36] LABS: Basophils # 0.1 K/mm3 (0-0.2); Basophils % 1.2 % (0.1-2.0); Eosinophils # 0.2 K/mm3 (0.0-0.4); Eosinophils % 3.4 % (0.1-12.0); Hematocrit 33.8 % (37.0-47.0); Hemoglobin 12.7 g/dL (12.2-16.2); Lymphocytes # 1.8 K/mm3 (0.7-4.5); Lymphocytes % 26.7 % (10-50); Mean Corpuscular HGB Conc 37.5 g/dL (31.8-35.4); Mean Corpuscular Hemoglobin 35.3 pg (27.0-31.2); Mean Corpuscular Volume 94.2 fl (81-99); Mean Platelet Volume 9.5 fl (7.4-10.4); Monocytes # 0.4 K/mm3 (0.1-1.0); Monocytes % 5.6 % (1.7-9.3); Neutrophils # 4.4 K/mm3 (1.8-7.8); Neutrophils % 63.2 % (37.0-80.0); Platelet Count 210 K/mm3 (142-424); Red Blood Count 3.59 M/mm3 (4.20-5.40); Red Cell Distribution Width 14.6 % (11.5-17.5); White Blood Count 6.9 K/mm3 (4.8-10.8)
[2023-09-10 15:05] LABS: Alanine Aminotransferase 19 U/L (12-78); Albumin Level 3.8 g/dl (3.5-5.0); Albumin/Globulin Ratio 1.6 (1.1-1.8); Alkaline Phosphatase 87 U/L (38-126); Anion Gap 9.2 mEq/L (5-15); Aspartate Amino Transferase 25 U/L (14-36); Bilirubin,Total 0.6 mg/dl (0.2-1.3); Blood Urea Nitrogen 22 mg/dl (7-17); Calcium 9.3 mg/dl (8.4-10.2); Carbon Dioxide 27 mmol/L (22.0-30.0); Chloride 109 mmol/L (98-107); Chol/HDL Ratio 2.7 (1-3.5); Cholesterol 148 mg/dl (140-200); Estimated Glomerular Filt Rate 70 ml/min (>60); GFR (African American) 84 ML/MIN (>60); Globulin 2.4 g/dL (1.3-3.2); Glucose 73 mg/dl (74-100); HDL Cholesterol 54 mg/dl (40-60); Potassium 4.2 mmoL/L (3.5-5.1); Sodium 141 mmol/L (136-145); Total Protein,Serum 6.2 g/dl (6.3-8.2); Triglycerides 63 mg/dl (30-150); VLDL Cholesterol 13 mg/dL (0-40)
[2023-09-10 15:16] LABS: Direct LDL Cholesterol 65.67 mg/dL (100-129)
== END 2023-09-10 23:59 | disposition home or self-care (01) ==
LOC: LAB.DROPOF 15:22
PROVIDERS: PCP Internal Medicine; Visit Provider Internal Medicine
DX: I10 Essential (primary) hypertension (principal); E78.5 Hyperlipidemia, unspecified; Z87.891 Personal history of nicotine dependence
CPT/HCPCS: 80053; 80061; 85025

== ENCOUNTER 2023-12-11 10:00 | Outpatient (RCR) | payer MEDICARE, OTHER, SELFPAY ==
--- NOTE | 2023-08-30 10:46 | HMH.PTOPEV ---
PT Outpatient Evaluation Rehab PT Outpatient Evaluation Start: 08/30/23 08:55 Freq: Status: Active Protocol: Document 08/30/23 09:25 DOUGLAS (Rec: 08/30/23 10:46 DOUGLAS [id number]) E-signed By Allan Montgomery, PT Outpatient Therapy Subjective History Subjective History Pt reports h/o chronic right knee pain since injury to right ankle ~2 yrs ago. Pt reports severe right ankle sprain injury lead to right knee pain and then meniscus insult which was surgically addressed w/right knee scope procedure ~1 yr ago. Pt reports right knee pain improved following sx. last year, however, right knee returned ~2 months, initially lateral aspect in origin. Pt reports recent steroid injection for right foot plantar fasciitis and for ear infection 'seem to have covered up some of this knee pain.' Pt reports episodes of right knee instability as well , 'it just kind of throws me.' Pt also reports recurrent upper resp. infection in May /June, 'and that really just made me weak all over.' PMH: vertigo, cardiac stent procedure, R plantar fasciitis , right hip pain New diagnosis of cancer in past 12 No months? Chief Complaint Pain,Swelling,Gives out/ Unstable,Weakness Symptom Type Ache,Throb,Dull Symptoms Relieved By Rest/Positioning,Ice Symptoms Aggravated By Physical Activity,Walking Prior Functional Limitations Housework,Standing,Squatting, Walking,Stairs Current Functional Limitations Housework,Standing,Squatting, Walking,Stairs Symptom Description Constant but Variable Level of pain today (0-10) 2 Pain scale - at its best (0-10) 2 Pain scale - at its worst (0-10) 8 Hip/Knee Eval Gait Observation General Gait Pattern Observation Antalgic Gait Assistive Device Assistive Devices None / NA Palpation Tenderness right Knee Palpation Finding Tenderness Knee Palpation Overall Comment 3/4 pes anserine insertion, medial HS insertion, medial/ lateral gastroc org MMT Hip Flexion Strength Grade 4- Good- Hip Abduction Strength Grade 4- Good- Hip Adduction Strength Grade 4- Good- Hip Extension Strength Grade 4 Good Hip External Rotation Strength Grade 4- Good- Hip Internal Rotation Strength Grade 4 Good Knee Extension Strength Grade 4 Good Knee Flexion Strength Grade 4 Good ROM Knee Flexion Active Range of Motion ( 0-110 degrees) Knee ROM Limitations Pain Effusion joint effusion knee exam standard right Mid - Patellar Circumerential Measure ( 48 cm) Special Tests Knee Valgus Stress Test Negative Right Knee Varus Stress Test Negative Right Knee Clau Test Negative Right Patella Apprehension Test Negative Right Patellar Compression Test Negative Right Patella Houghston's Plica Test Negative Right Patellar Tilt Test Negative Right Lower Extremity Functional Index Activities Today, do you or would you have any difficulty at all with: a.Any of your usual work, housework or A little bit of difficulty school activities b. Your usual hobbies, recreational or A little bit of difficulty sporting activities c. Getting into or out of the bath A little bit of difficulty d. Walking between rooms A little bit of difficulty e. Putting on your shoes or socks A little bit of difficulty f. Squatting Quite a bit of difficulty g. Lifting an object, like a bag of A little bit of difficulty groceries from the floor h. Performing light activities around A little bit of difficulty your home i. Performing heavy activities around Quite a bit of difficulty your home j. Getting into or out of a car A little bit of difficulty k. Walking 2 blocks No difficulty l. Walking a mile A little bit of difficulty m. Going up or down 10 stairs (about 1 Moderate difficulty flight of stairs) n. Standing for 1 hour A little bit of difficulty o. Sitting for 1 hour A little bit of difficulty p. Running on even ground A little bit of difficulty q. Running on uneven ground Moderate difficulty r. Making sharp turns while running fast Moderate difficulty s. Hopping A little bit of difficulty t. Rolling over in bed A little bit of difficulty LEFI Score Lower Extremity Functional Index Score 54 Outpatient Therapy Assessment Impairments Problems/Impairmments Palpation Tenderness,Impaired Range of Motion,Impaired Strength,Impaired Gait Pattern ,Impaired Walking,Impaired Standing,Impaired Household Care,Impaired Stair Climbing, Impaired Squatting,Increased Edema,Subjective C/O Pain, Impaired Self Care/Self Management Prognosis Rehab Potential Good Clinical Impression Consistent with Diagnosis Yes Short Term Goals Number of Weeks 4 Decreased Palpation Tenderness Yes: 1-2/4 right knee/LE Increase Range of Motion Yes: 0-110 RIGHT KNEE FLX w/o pain Increase Strength Yes: 4/5 RLE Increase Ability to Walk Yes: 15MIN Increase Ability to Stand Yes: 15MIN Decrease Subjective C/O Pain Yes: 3/10 W/ABOVE ACTIVITIES Patient to be Ind w/ HEP Yes Product Demonstrator Goals Number of Weeks 8-10 Decreased Palpation Tenderness Yes: 0-1/4 RIGHT KNEE Increase Range of Motion Yes: 0-120-125 R KNEE FLX Increase Strength Yes: 4+-5/5 RLE Improve Gait Pattern without Assistive Yes: WFL ON LEVEL TERRAIN Device Increase Ability to Walk Yes: 60MIN Increase Ability to Stand Yes: 60MIN Improve Ability For Household Care Yes: 60MIN Improve Ability to Climb Stairs Yes: WFL Improve Ability to Squat Yes: WFL Improve LEFI Score Yes: 60-65 Decrease Subjective C/O Pain Yes: 0-2/10 W/ABOVE ACTIVITIES Patient to be Ind w/ Advanced HEP Yes Outpatient Therapy Plan of Care Treatment Plan May Include Therapeutic Exercise Including Home Yes Exercise Program Manual Therapy Techniques Yes Neuromuscular Re-education Yes Therapeutic Activities to Return to Yes Previous Functional/Work Level Gait Training Yes ADL/Self Care Education Yes Dry Needling Yes Thermal Modalities Yes Electrical Stimulation Yes Ultrasound/Phonophoresis Yes Iontophoresis Yes Orthotics/Bracing/Splinting Yes Vasopneumatic Compression Pump Yes Eval/Re-Eval Yes Frequency Times per week 2-3 Duration Number of Weeks 8-10 Addendums This patient is a candidate for social No or vocational rehab? Patient/Guardian verbally acknowledges Yes understanding of treatment program and consents to further treatment? Patient/Guardian verbally acknowledges Yes understanding of diagnosis, prognosis and goals for treatment? Eval Complexity PT Charges 89117 - Moderate Complexity Shoulder/Elbow Eval Shoulder Objective Measurements Elbow Objective Measurements PHYSICIAN CERTIFICATION: I certify the specified therapy services for Leonor Reardon are required, authorized, and reviewed every 30 days.
--- NOTE | 2023-10-04 10:03 | HMH.RHREAS ---
Rehab Reassessment Rehab OP Re-assessment Start: 08/30/23 08:55 Freq: Status: Active Protocol: Document 10/04/23 08:18 DOUGLAS (Rec: 10/04/23 10:03 DOUGLAS [id number]) E-signed By Allan Montgomery, PT Lower Extremity Functional Index Activities Today, do you or would you have any difficulty at all with: a.Any of your usual work, housework or A little bit of difficulty school activities b. Your usual hobbies, recreational or A little bit of difficulty sporting activities c. Getting into or out of the bath A little bit of difficulty d. Walking between rooms No difficulty e. Putting on your shoes or socks A little bit of difficulty f. Squatting Quite a bit of difficulty g. Lifting an object, like a bag of A little bit of difficulty groceries from the floor h. Performing light activities around No difficulty your home i. Performing heavy activities around Moderate difficulty your home j. Getting into or out of a car No difficulty k. Walking 2 blocks No difficulty l. Walking a mile A little bit of difficulty m. Going up or down 10 stairs (about 1 Moderate difficulty flight of stairs) n. Standing for 1 hour A little bit of difficulty o. Sitting for 1 hour A little bit of difficulty p. Running on even ground A little bit of difficulty q. Running on uneven ground Moderate difficulty r. Making sharp turns while running fast Moderate difficulty s. Hopping A little bit of difficulty t. Rolling over in bed A little bit of difficulty LEFI Score Lower Extremity Functional Index Score 58 Rehab Re-assessment Subjective Subjective Pt reports significant improvements in right knee pain since I eval, reporting 1 /10 right knee pain on VAS this am, and feels 80% better overall since I eval. Objective Objective Notes MMT: Right knee ext 4+/5, R knee flx 4-4+/5, R hip flx 4/5 , R hip IR 4-4+/5, R hip ER 4- 4+/5, R hip abd 4/5 TTP: right lateral gastroc insertion 2-3/4, right pes anserine 1/4, right knee medial jt line 1/4 AROM: right knee flx 0-121 w/ pain Gait: WFL on level terrain LEF: 58 VS 54 ON I EVAL Assessment Progress Assessment Progressing as Expected Assessment Notes significant improvements in ROM, strength TTP, and gait Patient goals met STG'S 08/15 LTG'S 05/20 Goals Not Met STG'S 03/17, LTG'S 11/20 Plan Plan Pt to continue w/skilled P.T. to make further improvements in ROM, strength, and TTP to allow for optimal function Frequency of Therapy 1-2x/wk Duration of therapy 4-6wks Time and Billing Re-Eval Time 12 Re-Eval Billing Units 1 PHYSICIAN CERTIFICATION: I certify the specified therapy services for Leonor Reardon are required, authorized, and reviewed every 30 days.
--- NOTE | 2023-11-06 15:54 | HMH.RHREAS ---
Rehab Reassessment Rehab OP Re-assessment Start: 08/30/23 08:55 Freq: Status: Active Protocol: Document 11/06/23 15:43 DOUGLAS (Rec: 11/06/23 15:54 DOUGLAS [id number]) E-signed By Allan Montgomery, PT Lower Extremity Functional Index Activities Today, do you or would you have any difficulty at all with: a.Any of your usual work, housework or A little bit of difficulty school activities b. Your usual hobbies, recreational or A little bit of difficulty sporting activities c. Getting into or out of the bath A little bit of difficulty d. Walking between rooms No difficulty e. Putting on your shoes or socks A little bit of difficulty f. Squatting Moderate difficulty g. Lifting an object, like a bag of No difficulty groceries from the floor h. Performing light activities around A little bit of difficulty your home i. Performing heavy activities around A little bit of difficulty your home j. Getting into or out of a car A little bit of difficulty k. Walking 2 blocks No difficulty l. Walking a mile No difficulty m. Going up or down 10 stairs (about 1 A little bit of difficulty flight of stairs) n. Standing for 1 hour A little bit of difficulty o. Sitting for 1 hour A little bit of difficulty p. Running on even ground A little bit of difficulty q. Running on uneven ground Moderate difficulty r. Making sharp turns while running fast Moderate difficulty s. Hopping A little bit of difficulty t. Rolling over in bed A little bit of difficulty LEFI Score Lower Extremity Functional Index Score 61 Rehab Re-assessment Subjective Subjective Pt reports improved overall right knee function since last reassessment w/improved strength and ROM reported. Pt reports however, intermittent episodes of lateral right knee have increased in intensity @ 7/10 w/certain activities, and 0/10 right knee pain at rest on VAS. Objective Objective Notes MMT: Right knee ext 4+/5, R knee flx 4-4+/5, R hip flx 4+/ 5, R hip IR 4-4+/5, R hip ER 4 -4+/5, R hip abd 4-4+/5 TTP: right lateral gastroc insertion 2-3/4, right pes anserine 1/4, right knee medial jt line 14, right knee lateral jt line/LCL 2-3/4 AROM: right knee flx 0-118 w/o pain Gait: WFL on level terrain LEF: 61 VS 54 ON I EVAL Assessment Progress Assessment Slower Than Expected Assessment Notes slight improvement in strength and LEF score, and slight regression in ROM and TTP Patient goals met STG'S 08/15 LTG'S 06/20 Goals Not Met STG'S 03/17, LTG'S 10/20 Plan Plan Pt to continue w/skilled P.T. to make further improvements in ROM, strength, and TTP to allow for optimal function Frequency of Therapy 1-2x/wk Duration of therapy 3-5wks Time and Billing Re-Eval Time 11 Re-Eval Billing Units 0 PHYSICIAN CERTIFICATION: I certify the specified therapy services for Leonor Reardon are required, authorized, and reviewed every 30 days.
== END 2023-12-11 23:59 | disposition home or self-care (01) ==
LOC: PT 10:00
PROVIDERS: Visit Provider Physician Assistant Surgical
DX: M25.561 Pain in right knee (principal)
CPT/HCPCS: 97010; 97014; 97033; 97035; 97110; 97140; 97163; 97164; 97530; G0283

== ENCOUNTER 2024-06-23 15:49 | Outpatient (CLI) | payer MEDICARE, OTHER, SELFPAY ==
--- NOTE | 2024-06-23 15:53 | XR_ITS ---
FINAL REPORT CLINICAL HISTORY: Left shoulder pain post fall 12/02 COMPARISON: None FINDINGS: 3 views of the left shoulder were obtained. There is no fracture or dislocation. The joint space is preserved. Soft tissues are unremarkable. IMPRESSION: No acute osseous abnormality of the left shoulder. Reviewed, Interpreted and Dictated by Carmela Clark MD Transcribed by Luba Wagner Authenticated and [facility]
[2024-06-23 19:13] LABS: Alanine Aminotransferase 16 U/L (12-78); Albumin/Globulin Ratio 1.5 (1.1-1.8); Alkaline Phosphatase 101 U/L (38-126); Anion Gap 13.7 mEq/L (5-15); Aspartate Amino Transferase 23 U/L (14-36); Bilirubin,Total 0.7 mg/dl (0.2-1.3); Blood Urea Nitrogen 16 mg/dl (7-17); Calcium 9.1 mg/dl (8.4-10.2); Carbon Dioxide 24 mmol/L (22.0-30.0); Chloride 107 mmol/L (98-107); Chol/HDL Ratio 3.2 (1-3.5); Cholesterol 140 mg/dl (140-200); Estimated Glomerular Filt Rate 81 ml/min (>60); GFR (African American) 98 ML/MIN (>60); Globulin 2.6 g/dL (1.3-3.2); Glucose 77 mg/dl (74-100); HDL Cholesterol 44 mg/dl (40-60); Potassium 4.7 mmoL/L (3.5-5.1); Sodium 140 mmol/L (136-145); Total Protein,Serum 6.6 g/dl (6.3-8.2); Triglycerides 99 mg/dl (30-150); VLDL Cholesterol 20 mg/dL (0-40)
[2024-06-23 19:23] LABS: Direct LDL Cholesterol 60.65 mg/dL (100-129)
== END 2024-06-23 23:59 | disposition home or self-care (01) ==
LOC: RAD 15:51
PROVIDERS: PCP Internal Medicine; Visit Provider Internal Medicine
DX: M75.52 Bursitis of left shoulder (principal); I10 Essential (primary) hypertension; I25.110 Atherosclerotic heart disease of native coronary artery with unstable angina pectoris; E78.5 Hyperlipidemia, unspecified
CPT/HCPCS: 73030; 80053; 80061

== ENCOUNTER 2024-07-20 17:03 | Outpatient (CLI) | payer MEDICARE, OTHER, SELFPAY ==
--- NOTE | 2024-07-20 17:00 | MM_ITS ---
PROCEDURE INFORMATION: Exam: MG Bilateral Screening 3D Mammography Exam date and time: 07/20/2024 5:09 PM Age: 79 years old Clinical indication: Screening exam TECHNIQUE: Imaging protocol: Bilateral Screening tomosynthesis and 2D mammography including computer-aided detection (CAD) when performed. COMPARISON: 1. MG MM DIG SCREENING MAMM BI W/CAD 06/26/2022 2:41 PM 2. MG MM DIG SCREENING MAMM BI W/CAD 03/16/2021 10:42 AM FINDINGS: MAMMOGRAPHY: Breast composition: The breasts are almost entirely fatty. Mass: No suspicious masses. Architectural distortion: None. Calcifications: No suspicious calcifications. Asymmetric density: None. Skin thickening: None. Axillary adenopathy: None. IMPRESSION: No mammographic evidence of malignancy. Annual screening is recommended unless otherwise clinically indicated. ASSESSMENT: BI-RADS Category 1: Negative.
== END 2024-07-20 23:59 | disposition home or self-care (01) ==
LOC: RAD 17:06
PROVIDERS: PCP Internal Medicine; Visit Provider Internal Medicine
DX: Z12.31 Encounter for screening mammogram for malignant neoplasm of breast (principal)
CPT/HCPCS: 77063; 77067

== ENCOUNTER 2024-09-14 15:59 | Outpatient (CLI) | payer MEDICARE, OTHER, SELFPAY ==
--- OUTSIDE RECORDS SUMMARY | 2024-09-14 16:02 | XMS_ITS | Clinical Summary ---
Author Organization [facility] Address [address] [facility] [place] [address] Phone Care Team Providers Care Hvac Engineer Name Role Phone Unavailable Primary Care Provider Unavailabl e Social History Tobacco Use Types Packs/Day Years Used Date Smoking Tobacco: Never Assessed Comments No Sex and Gender Information Value Date Recorded Sex Assigned at Not on file Legal Sex Female 4:04 AM EDT Gender Identity Not on file Sexual Orientation Not on file Plan of Treatment Health Maintenance Due Date Last Done Comments Annual Wellness Exam 1948 Hepatitis C Screening 1964 DTaP/TDaP/Td (1 - Tdap) 1965 Pneumococcal Vaccine 50+ (1 of 1 - PCV) 1996 Zoster (1 of 2) 1996 Bone Density Screening 05/18/2011 RSV or 60+ (1 - 1-d ose 75+ series) 2021 COVID-19 Vaccine ( - 2023-2 5 season) 2023 Influenza Vaccine (#1) 2024 Hepatitis B Vaccine Aged Out No longe r eligible based on patient's age to complete this topic Meningococcal B Vaccine Aged Out No l onger eligible based on patient's age to complete this topic Insurance 36Jose [facility] [place] [id number] [place]
--- OUTSIDE RECORDS SUMMARY | 2024-09-14 16:02 | XMS_ITS | Clinical Summary ---
Author Organization [facility] Address [address] [place] [address] Care Team Providers Care Clearance Diver Name Role Phone Boston Ziegler MD Primary Care Provider [phone] Social History Tobacco Use Types Packs/Day Years Used Date Smoking Tobacco: Never Assessed Comments Unknown Sex and Gender Information Value Date Recorded Sex Assigned at Not on file Legal Sex Female 6:56 PM EDT Gender Identity Not on file Sexual Orientation Not on file Plan of Treatment Health Maintenance Due Date Last Done Comments [facility]Y-Bone Density Scan 1945 UKY-Depression Screening 1946 UK[facility]-/Child/Adol SDOH Screenings 1945 UKY- SDOH Screenings 1964 UKY-Adult SDOH Screenings 1964 UKY-Zoster Vaccines (1 of 2) 1996 UKY-Pneumococcal Vaccine: 50+ Years (2 of 2 - PPSV23) 12/28/2017 12/28/2016 UKY-DTaP,Tdap,and Td Vaccines (1 - Tdap) 08/28/2020 08/27/2020 UKY-RSV Vaccine: 60+ Years or (1 - 1-dose 75+ series) 2021 [id number] Vaccine ( - season) 2023 11/16/2020, 05/18/2020, 04/20/2020 UKY-Influenza Vaccine (#1) 2024 HPV Vaccines Aged Out No longer eligi ble based on patient's age to complete this topic UKY-HIB Vaccines Aged Out No longer e ligible based on patient's age to complete this topic UKY-Hepatitis A Vaccines Aged Out No longer eligible based on patient's age to complete this topic UKY-IPV Vaccines Aged Out No longer e ligible based on patient's age to complete this topic UKY-Rotavirus Vaccines Aged Out No lo nger eligible based on patient's age to complete this topic Insurance MEDICARE Care Teams Clearance Diver Relationship Specialty Start Date End Date Boston Ziegler MD [address] [facility] [address] [place] [id number] PCP - General 07/22/20
[2024-09-14 16:43] LABS: Hematocrit 37.0 % (37.0-47.0); Hemoglobin 11.7 g/dL (12.2-16.2); Immature Granulocytes % 0.2 %; Mean Corpuscular HGB Conc 31.6 g/dL (31.8-35.4); Mean Corpuscular Hemoglobin 28.7 pg (27.0-31.2); Mean Corpuscular Volume 90.7 fl (81-99); Nucleated Red Blood Cells % 0 %; Platelet Count 250 K/mm3 (142-424); Red Blood Count 4.08 M/mm3 (4.20-5.40); Red Cell Distribution Width-SD 47.9 fL; White Blood Count 8.8 K/mm3 (4.8-10.8)
[2024-09-14 18:23] LABS: Free T4 (Free Thyroxine) 1.13 ng/dl (0.78-2.19)
[2024-09-14 18:29] LABS: Alanine Aminotransferase 15 U/L (12-78); Albumin Level 4.3 g/dl (3.5-5.0); Alkaline Phosphatase 86 U/L (38-126); Anion Gap 17.5 mEq/L (5-15); Aspartate Amino Transferase 26 U/L (14-36); Bilirubin,Direct 0.3 mg/dl (0.0-0.4); Bilirubin,Indirect 0.2 mg/dL (0.0-0.9); Bilirubin,Total 0.5 mg/dl (0.2-1.3); Bilirubin,Unconjugated 0.2 mg/dL (0.0-1.1); Blood Urea Nitrogen 25 mg/dl (7-17); Calcium 9.1 mg/dl (8.4-10.2); Carbon Dioxide 25 mmol/L (22.0-30.0); Chloride 104 mmol/L (98-107); Cholesterol 155 mg/dl (140-200); Creatinine,Serum 0.80 mg/dl (0.52-1.04); Estimated Glomerular Filt Rate 69 ml/min (>60); GFR (African American) 84 ML/MIN (>60); Glucose 87 mg/dl (74-100); HDL Cholesterol 51 mg/dl (40-60); Magnesium 2.0 mg/dl (1.6-2.3); Potassium 4.5 mmoL/L (3.5-5.1); Sodium 142 mmol/L (136-145); Total Protein,Serum 6.5 g/dl (6.3-8.2); Triglycerides 115 mg/dl (30-150)
[2024-09-14 18:59] LABS: Thyroid Stimulating Hormone 1.59 uIU/mL (0.465-4.68)
== END 2024-09-14 23:59 | disposition home or self-care (01) ==
LOC: LAB 16:01
PROVIDERS: PCP Internal Medicine; Visit Provider Nurse Practitioner
DX: I49.3 Ventricular premature depolarization (principal); I16.1 Hypertensive emergency; I10 Essential (primary) hypertension; I25.10 Atherosclerotic heart disease of native coronary artery without angina pectoris
CPT/HCPCS: 36415; 80048; 80061; 80076; 83735; 84439; 84443; 85025; 93270

== ENCOUNTER 2024-09-22 08:32 | Outpatient (CLI) | payer MEDICARE, OTHER, SELFPAY ==
--- OUTSIDE RECORDS SUMMARY | 2014-06-04 11:30 | XMS_ITS | Continuity of Care Document ---
Author Organization [facility] Address [address] [place] [address] Phone Care Team Providers Care Enterprise Services Manager Name Role Phone Diego Lao MD Unavailable Unavailable Procedures Procedure Date EYE EXAM, NEW PATIENT Advance Directives Directive Yes / No Effective Date File Name No Information Encounters Encounter Description Practice Location Reason(s) For Visit Diagnoses Date Provider Providers Copied on Encounter [facility], [address] [place] [address], [facility], tel:[phone] [place] No Information Tashia Cortez. [address] [place] [address], [id number], . tel:[phone] Referring Provider: Diego Mahajan, [address] [place] [address], [id number]. tel:[phone] Family History Family Member Type Diagnosis Age At Onset No Information Payers Payer name Insurance type Covered green party ID Authoriza tion(s) No Information Social History Type Description Quantity Date Captured Comments Sex Female Smoking Status No Information Chief Complaint And Reason For Visit No Information Reason For Referral Reason For Referral No Information History Of Present Illness Encounter Date Complaint History Of Prese nt Illness No Information Functional Status Date Functional Assessmen t No Information Instructions Date Instruction Additional Infor mation No Information Assessments Type Assessment Date No Information Patient Care Teams Name Effective Dates (start - stop) Status Members No Information
--- OUTSIDE RECORDS SUMMARY | 2024-09-22 08:35 | XMS_ITS | Clinical Summary ---
Author Organization [facility] Address [place] [address] Phone Care Team Providers Care Stapler Coil Unit Name Role Phone Unavailable Primary Care Provider [...] age to complete this topic Insurance 36Jose [facility] [place] [id number] [place]
--- OUTSIDE RECORDS SUMMARY | 2024-09-22 08:35 | XMS_ITS | Clinical Summary ---
Author Organization [facility] Address [address] [place] [address] Care Team Providers Care Thermostat Mechanic Name Role Phone Boston Ziegler MD Primary Care Provider [phone] Social History Tobacco Use Types Packs/Day Years Used Date Smoking Tobacco: Never Assessed Comments Unknown Sex and Gender Information Value Date Recorded Sex Assigned at Not on file Legal Sex Female 6:56 PM EDT Gender Identity Not on file Sexual Orientation Not on file Plan of Treatment Health Maintenance Due Date Last Done Comments [facility]Y-Bone Density Scan 1945 UKY-Depression Screening 1946 UKY-Infant/Child/Adol SDOH Screenings 1946 UKY- SDOH Screenings 1964 UKY-Adult SDOH Screenings 1964 UKY-Zoster Vaccines (1 of 2) 1996 UKY-Pneumococcal Vaccine: 50+ Years (2 of 2 - PPSV23) 12/28/2017 12/28/2016 UKY-DTaP,Tdap,and Td Vaccines (1 - Tdap) 08/28/2020 08/27/2020 UKY-RSV Vaccine: 60+ Years or (1 - 1-dose 75+ series) 2021 [id number] Vaccine ( - season) 2023 11/16/2020, 05/18/2020, [...] complete this topic Insurance MEDICARE Care Teams Thermostat Mechanic Relationship Specialty Start Date End Date Boston Ziegler MD [address] [facility] [address] [place] [id number] PCP - General 07/22/20
--- NOTE | 2024-09-22 08:45 | CA_ITS ---
APPROVED REPORT EXAM: Comprehensive 2D, Doppler, and color-flow Echocardiogram Buildings And Grounds Director: Janine Victoria CRT Ht: 5 ft 2 in Wt: 197lbs BSA: 1.90 BP: 140/72 mmHg Indications: Palpitations, Hyperlipidemia, Hypertension, stents 2D Dimensions LA Volume 42.00 mL LA Volume Index 21.50 mL/m2 (M/F) 16-34 EF AP4 58.80 % GL Strain -19.3 % M-Mode Dimensions RVDd 1.97 cm (0.9-2.6) LA Diam 4.71 cm (1.9-4.0) LVDd 4.50 cm (3.5-5.7) LVDs 2.23 cm (3.5-5.7) IVSd 1.51 cm (0.6-1.1) PWd 0.79 cm (0.6-1.1) EF (Teich) 81.80% FS 50.40% EDV (Teich) 92.40 mL TAPSE 3.03 (<1.7) ESV (Teich) 16.80 mL LV Diastology E Decel Time 150 (160-240 msec) E/A Ratio 1.34 MED A' 7.90 cm/s LAT A' 10.50 cm/s Aortic Valve AI PHT 395.00 ms AO Peak GR. 5.60 mmHg Mitral Valve MV E Max Vladimir. 94.0 (40-130 cm/s) MV A Velocity 70.0 (40-130 cm/s) E/A Ratio 1.34 MV PHT 44.0 ms Pulmonary Valve PV Peak Velocity 133.0 (50-150 cm/s) Tricuspid Valve TR P. Velocity 297.00 cm/s RAP Estimate 10.00 mmHg RVSP 45.20 mmHg Left Ventricle The left ventricle is normal size. The left ventricular systolic function is normal. The left ventricular ejection fraction is within the normal range. There is normal left ventricular wall thickness. There is normal LV segmental wall motion. The left ventricular diastolic function is normal. LVEF is 55%. Right Ventricle The right ventricle is normal size. The right ventricular systolic function is normal. Atria The left atrium is mildly dilated. The right atrium size is normal. There is no Doppler evidence of interatrial shunt. Aortic Valve The aortic valve is mildly thickened. Mild aortic regurgitation. There is no aortic valvular stenosis. Mitral Valve The mitral valve is normal in structure. No evidence of mitral valve stenosis. Mild mitral regurgitation. Tricuspid Valve Tricuspid valve is grossly normal in structure and function. Mild tricuspid regurgitation. RVSP is 25-30 mmHg. Pulmonic Valve The pulmonary valve is normal in structure. Mild pulmonic regurgitation. Great Vessels The aortic root is normal in size. IVC is normal in size and collapses >50% with inspiration. Pericardium There is no pericardial effusion. Other Information Study Quality: Fair Conclusion Normal biventricular systolic function. Mild LA dilation. Mild AI, mild MR, mild TR, mild PI. Electronically signed by : Louisa Estrada MD 09/26/2024 22:51:58
== END 2024-09-22 23:59 | disposition home or self-care (01) ==
LOC: RT 08:33
PROVIDERS: PCP Internal Medicine; Visit Provider Nurse Practitioner
DX: I08.8 Other rheumatic multiple valve diseases (principal); I11.9 Hypertensive heart disease without heart failure; I49.3 Ventricular premature depolarization; I25.10 Atherosclerotic heart disease of native coronary artery without angina pectoris; E78.5 Hyperlipidemia, unspecified
CPT/HCPCS: 93306

== ENCOUNTER 2024-12-24 12:13 | Outpatient (CLI) | payer MEDICARE, OTHER, SELFPAY ==
[2024-12-24 17:39] LABS: Hematocrit 39.0 % (37.0-47.0); Hemoglobin 12.6 g/dL (12.2-16.2); Mean Corpuscular HGB Conc 32.3 g/dL (31.8-35.4); Mean Corpuscular Hemoglobin 28.8 pg (27.0-31.2); Mean Corpuscular Volume 89.2 fl (81-99); Red Blood Count 4.37 M/mm3 (4.20-5.40); Red Cell Distribution Width-SD 44.7 fL; White Blood Count 6.9 K/mm3 (4.8-10.8)
[2024-12-24 17:40] LABS: Immature Granulocytes % 0.1 %; Nucleated Red Blood Cells % 0 %; Platelet Count 275 K/mm3 (142-424)
[2024-12-24 18:02] LABS: Alanine Aminotransferase 15 U/L (12-78); Albumin Level 4.0 g/dl (3.5-5.0); Albumin/Globulin Ratio 1.8 (1.1-1.8); Alkaline Phosphatase 105 U/L (38-126); Anion Gap 17.0 mEq/L (5-15); Aspartate Amino Transferase 23 U/L (14-36); Bilirubin,Total 0.7 mg/dl (0.2-1.3); Blood Urea Nitrogen 18 mg/dl (7-17); Calcium 9.4 mg/dl (8.4-10.2); Carbon Dioxide 23 mmol/L (22.0-30.0); Chloride 105 mmol/L (98-107); Cholesterol 133 mg/dl (140-200); Creatinine,Serum 0.80 mg/dl (0.52-1.04); Estimated Glomerular Filt Rate 69 ml/min (>60); GFR (African American) 84 ML/MIN (>60); Globulin 2.2 g/dL (1.3-3.2); Glucose 83 mg/dl (74-100); HDL Cholesterol 51 mg/dl (40-60); Potassium 5.0 mmoL/L (3.5-5.1); Sodium 140 mmol/L (136-145); Total Protein,Serum 6.2 g/dl (6.3-8.2); Triglycerides 78 mg/dl (30-150)
--- OUTSIDE RECORDS SUMMARY | 2024-12-28 12:16 | XMS_ITS | Clinical Summary ---
Author Organization [facility] Address [address] [place] [address] Care Team Providers Care Supervisor Of Communications Name Role Phone Boston Ziegler MD Primary Care Provider [phone] Social History Tobacco Use Types Packs/Day Years [...] Vaccine: 50+ Years (2 of 2 - PCV20 or PCV21) 12/28/2017 12/28/2016 UKY-DTaP,Tdap,and Td Vaccines (1 - Tdap) 08/28/2020 08/27/2020 UKY-RSV Vaccine: 60+ Years or (1 - 1-dose 75+ series) 2021 [id number] Vaccine ( - 2024- season) 2024 11/16/2020, 05/18/2020, 04/20/2020 UKY-Influenza Vaccine (#1) 2024 [...] patient's age to complete this topic Insurance Care Teams Supervisor Of Communications Relationship Specialty Start Date End Date Boston Ziegler MD [address] [facility] [address] [place] [address] PCP - General 07/22/20
--- OUTSIDE RECORDS SUMMARY | 2024-12-28 12:16 | XMS_ITS | Clinical Summary ---
Author Organization [facility] Address [address] [place] [address] Care Team Providers Care Human Relations Professor Name Role Phone Boston Ziegler MD Primary Care Provider [phone] Allergies No known active allergies Medications atorvastatin (LIPITOR) 40 MG tablet Take 1 tablet by mouth Daily. 8 Active bisoprolol (ZEBeta) 5 MG tablet Take 1 tablet by mouth Daily. 3 Active clopidogrel (PLAVIX) 75 MG tablet Take 1 tablet by mouth Daily. 8 Active lisinopril (PRINIVIL,ZESTR IL) 5 MG tablet Take 1 tablet by mouth Daily. 3 Active dilTIAZem (Cardizem) 30 MG tablet Take 1 tablet by mouth 4 (Four) Times a Day. 360 tablet 3 4 Active albuterol sulfate HFA 108 (90 Base) MCG/ACT inhaler INHALE 2 puffs by MOUTH EVERY 6 HOURS NEEDED FOR breathing 4 Active Active Problems Problem Noted Date Diagnosed Date Primary hypertension 07/08/2023 CAD (coronary artery disease) 07/08/2023 Overview (07/08/2023): SHEFALI to RCA Mixed hyperlipidemia 07/08/2023 Carotid stenosis 07/08/2023 PVC (premature ventricular contraction) 04/08/19 24 Overview (07/08/2023): Holter monitor, 7-8% PVC burden Family History Medical History Relation Name Comments Cancer Father Supraventricular tachycardia Father Relation Name Status Comments Father Mother Social History Tobacco Use Types Packs/Day Years Used Date Smoking Tobacco: Former Cigarettes 0.5 17 0 03/11/1977 - 03/10/1994 Smokeless Tobacco: Never Tobacco Cessation:Counseling Given: Not Answered Comments:Was a social smoker. Never regular. Quit for years along the way till I quit for good in 1993. Alcohol Use Standard Drinks/Week Comments Not Currently 0 (1 standard drink = 0.6 oz pure alcohol) Social only. None since 2018. Abuse Screen Answer Date Recorded Unsafe at Home or Work/School Not on file Feels Threatened by Someone? Not on file 11/2022 Does Anyone Keep You from Co ntacting Others or Doint Things Outside the Home? Not on file 12/17/2022 Physical Sign of Abuse Present Not on file 1 Housing Stability Answer Date Recorded Current Living Arrangements Not on file 11/2022 Potentially Unsafe Housing Conditions Not on elida e 12/17/2022 Family and Community Support Answer Thien e Recorded Help with Day-to-Day Activities Not on file 12/17/2022 Lonely or Isolated Not on file 12/17/2022 Employment Answer Date Recorded Do you want help finding or keeping work or a michael b? Not on file 12/17/2022 Disabilities Answer Date Recorded Concentrating, Remembering, or Making Decisions Difficulty Not on file 12/17/2022 Doing Errands Independently Difficulty Not on fi le 12/17/2022 Education Answer Date Recorded Help with school or training? Not on file Preferred Language Not on file 12/17/2022 Comments Unknown Sex and Gender Information Value Date Recorded Sex Assigned at Not on file Legal Sex Female 1:22 PM EDT Gender Identity Not on file Sexual Orientation Not on file Last Filed Vital Signs Vital Sign Reading Time Taken Comments Blood Pressure 160/62 07/08/2023 3:07 PM EDT Pulse 75 07/08/2023 3:07 PM EDT Temperature - - Respiratory Rate - - Oxygen Saturation 100% 07/08/2023 3:07 PM EDT Inhaled Oxygen Concentration - - Weight 89.4 kg (197 lb) 07/08/2023 3:07 PM EDT Height 157.5 cm (5' 2 ) 07/08/2023 3:07 PM EDT Body Mass Index 36.03 07/08/2023 3:07 PM EDT Plan of Treatment Health Maintenance Due Date Last Done Comments DXA SCAN 1945 LIPID PANEL 1945 ZOSTER VACCINE (1 of 2) 1996 Pneumococcal Vaccine 50+ (2 of 2 - PCV20 or PCV21) 12/28/2017 12/28/2016 TDAP/TD VACCINES (1 - Tdap) 08/28/2020 08/27/2020 RSV Vaccine - Adults (1 - 1- dose 75+ series) 2021 ANNUAL WELLNESS VISIT 04/08/2023 HEPATITIS C SCREENING 04/08/2023 INFLUENZA VACCINE 10/09/2024 COVID-19 Vaccine (4 - 2024-2 6 season) 2024 11/16/2020, 05/18/2020, 04/20/2020 MAMMOGRAM Discontinued 05/08/2010 Insurance MEDICARE A & B Member Subscriber Plan / Payer (Ef fective 2011-Present) Name:Leonor Reardon Member ID:[id number] Relation to Subscriber:Self Name:Leonor Reardon Subscriber ID:[id number] Payer ID:[id number] Group ID:Not on file Type:Not on file Address: [address] [place] [id number] [facility] [place] [address] Care Teams Human Relations Professor Relationship Specialty Start Date End Date Boston Ziegler MD [address] [place] [address] [place] [address] PCP - General Internal Medicine 04/02/23
--- OUTSIDE RECORDS SUMMARY | 2024-12-28 12:16 | XMS_ITS | Clinical Summary ---
Author Organization [facility] Address [address] [place] [address] Phone Care Team Providers Care Senior Actuarial Analyst Name Role Phone Unavailable Primary Care Provider [...] 75+ series) 2021 COVID-19 Vaccine ( - 2024-2 6 season) 2024 Influenza Vaccine (#1) 2024 Hepatitis B Vaccine Aged Out No longe r eligible based on patient's age to complete this topic Meningococcal B Vaccine Aged Out No l onger eligible based on patient's age to complete this topic Insurance 36Jose [facility] [place] [id number] [place]
== END 2024-12-24 23:59 ==
LOC: LAB.DROPOF 12-28 12:14
PROVIDERS: PCP Internal Medicine; Visit Provider Internal Medicine
DX: I49.3 Ventricular premature depolarization (principal); I10 Essential (primary) hypertension; E78.5 Hyperlipidemia, unspecified; I25.10 Atherosclerotic heart disease of native coronary artery without angina pectoris
CPT/HCPCS: 80053; 80061; 85025

== ENCOUNTER 2025-02-05 08:49 | Outpatient (CLI) | payer MEDICARE, OTHER, SELFPAY ==
--- OUTSIDE RECORDS SUMMARY | 2025-02-05 08:52 | XMS_ITS | Clinical Summary ---
Author Organization [facility] Address [address] [place] [address] Care Team Providers Care Meter Tester Polyphase Name Role Phone Boston Ziegler MD Primary Care Provider [phone] Allergies No known active allergies Medications atorvastatin [...] Payer (Ef fective 2011-Present) Name:Leonor Reardon Member ID:[id number] Relation to Subscriber:Self Name:Leonor Reardon Subscriber ID:[id number] Payer ID:[id number] Group ID:Not on file Type:Not on file Address: [address] [place] [id number] [facility] [place] [address] Care Teams Meter Tester Polyphase Relationship Specialty Start Date End Date Boston Ziegler MD [address] [place] [address] [place] [address] PCP - General Internal Medicine 04/02/23
--- OUTSIDE RECORDS SUMMARY | 2025-02-05 08:52 | XMS_ITS | Clinical Summary ---
Author Organization [facility] Address [address] [facility] [place] [address] Phone Care Team Providers Care Pick Pulling Machine Tender Name Role Phone Unavailable Primary Care Provider [...] 1-d ose 75+ series) 2021 COVID-19 Vaccine (1 - 2024-2 6 season) 2024 Influenza Vaccine (#1) 2024 Hepatitis B Vaccine Aged Out No longe r eligible based on patient's age to complete this topic Meningococcal B Vaccine Aged Out No l onger eligible based on patient's age to complete this topic Insurance 36Jose [facility] [place] [id number] [place]
--- OUTSIDE RECORDS SUMMARY | 2025-02-05 08:52 | XMS_ITS | Clinical Summary ---
Author Organization [facility] Address [address] [place] [address] Care Team Providers Care Patient Scheduling Coordinator Name Role Phone Boston Ziegler MD Primary Care Provider [phone] Social History Tobacco Use Types Packs/Day Years [...] or (1 - 1-dose 75+ series) 2021 [id number] Vaccine ( - 2024- season) 2024 11/16/2020, [...] to complete this topic Insurance Care Teams Patient Scheduling Coordinator Relationship Specialty Start Date End Date Boston Ziegler MD [address] [facility] [address] [place] [address] PCP - General 07/22/20
--- NOTE | 2025-02-05 08:59 | XR_ITS ---
FINAL REPORT CLINICAL HISTORY: right knee pain COMPARISON: 07/24/2022 FINDINGS: AP, lateral and oblique views of the right knee were obtained. There is no acute osseous abnormality of the right knee. There is tricompartment degenerative change, slightly worse. The soft tissues are normal. There is no joint effusion. Reviewed, Interpreted and Dictated by Carmela Clark MD Transcribed by Laverne Blveins Authenticated and [facility]
== END 2025-02-05 23:59 | disposition home or self-care (01) ==
LOC: RAD 08:50
PROVIDERS: PCP Internal Medicine; Visit Provider Physician Assistant Surgical
DX: M17.11 Unilateral primary osteoarthritis, right knee (principal)
CPT/HCPCS: 73562

== ENCOUNTER 2025-02-25 08:43 | Outpatient (RCR) | payer MEDICARE, OTHER, SELFPAY ==
--- NOTE | 2025-02-25 09:42 | HMH.PTOPEV ---
PT Evaluation Rehab PT Outpatient Evaluation Start: 02/25/25 08:45 Freq: Status: Active Protocol: Document 02/25/25 08:45 PAULINO (Rec: 02/25/25 09:42 DOMINICJOSEMAYLIN [id number]) E-signed By Humberto Banuelos, PT Outpatient Therapy Subjective History Subjective History Pt is a 79 yof who is referred to [facility] outpatient PT with complaints of R hip and knee pain and a referring diagnosis of IT band syndrome. Pt reports that she had a fall 2.5 years ago, which resulted in an ankle injury and she also injured her knee and hip at this time. Pt reports that she began to have more pain into the lateral portion of her knee approximately 3 months ago. Pt reports it feels like I have a rubber band next to my knee and it pops frequently. The pt reports significantly increased pain with sitting, squatting, stairs, putting on socks (crossing the leg.) The pt denies having any episodes of instability. PMH: Cataracts, both eyes Abnormal findings diagnostic imaging of heart and coronary circulation Atypical angina History of myocardial infarction History of left heart catheterization Edema of both lower extremities Diastolic dysfunction Sinus bradycardia Carotid artery stenosis PVC (premature ventricular contraction) History of rheumatic fever CAD (coronary artery disease) Hyperlipidemia New diagnosis of No cancer in past 12 months? Chief Complaint Pain,Clicks,Catches/Locks Symptom Type Ache,Sharp Symptoms Relieved By Rest/Positioning Symptoms Aggravated Sitting,Walking,Lifting By Prior Functional None Limitations Current Functional Lifting,Housework,Standing,Sitting,Squatting,Stairs Limitations Symptom Description Constant but Variable,Activity Dependent Level of pain today 7 (0-10) Pain scale - at its 0 best (0-10) Pain scale - at its 9 worst (0-10) Hip/Knee Eval Gait Observation General Gait Pattern Antalgic Gait,Decrease Weight Bear (R),Decrease Stride Observation Lngth (L) Palpation Tenderness right Knee Palpation Tenderness Finding Knee Palpation TTP 3/4 to Distal IT band Overall Comment MMT Hip Flexion Strength 4- Good- Grade Hip Abduction 3+ Fair+ Strength Grade Hip Extension 3+ Fair+ Strength Grade Knee Extension 5 Normal Strength Grade Knee Flexion 5 Normal Strength Grade ROM Hip ROM Reason Not Within Functional Limits Measured Knee ROM Reason Not Within Functional Limits Measured Special Tests Hip Scouring ( Positive Right Quadrant) Test Forrest Test Negative Hip Trendelenburg Positive Right Test Lower Extremity Functional Index Activities Today, do you or would you have any difficulty at all with: a.Any of your usual Moderate difficulty work, housework or school activities b. Your usual Moderate difficulty hobbies, recreational or sporting activities c. Getting into or Moderate difficulty out of the bath d. Walking between A little bit of difficulty rooms e. Putting on your Moderate difficulty shoes or socks f. Squatting Quite a bit of difficulty g. Lifting an object A little bit of difficulty , like a bag of groceries from the floor h. Performing light A little bit of difficulty activities around your home i. Performing heavy A little bit of difficulty activities around your home j. Getting into or Moderate difficulty out of a car k. Walking 2 blocks No difficulty l. Walking a mile A little bit of difficulty m. Going up or down A little bit of difficulty 10 stairs (about 1 flight of stairs) n. Standing for 1 A little bit of difficulty hour o. Sitting for 1 A little bit of difficulty hour p. Running on even No difficulty ground q. Running on uneven Moderate difficulty ground r. Making sharp Moderate difficulty turns while running fast s. Hopping A little bit of difficulty t. Rolling over in A little bit of difficulty bed LEFI Score Lower Extremity 53 Functional Index Score Outpatient Therapy Assessment Impairments Problems/ Palpation Tenderness,Impaired Range of Motion,Impaired Impairmments Strength,Impaired Gait Pattern,Impaired Walking, Impaired Sitting,Impaired Lifting,Impaired Household Care,Impaired Stair Climbing,Impaired Squatting, Subjective C/O Pain,Impaired Self Care/Self Management Prognosis Rehab Potential Good Comment w HEP compliance Clinical Impression Consistent with Yes Diagnosis Consistent with IT band syndrome PT Patient Goals PT Patient Goals PT Short Term In 4 weeks: Patient Goals 1. Patient will improve strength of R hip complex to 4/ 5 globally to improve gait mechanics, improve static/ dynamic balance and to decrease fall risk. 2. Patient will demonstrate a reduction in trigger point sensitivity to Grade 2 with manual palpation to improve comfort during activity and soft tissue mobility. 3. Patient will improve LEFS score to 58/80 to demonstrate improved functional mobility and increased independence with ADLs. 4. Patient will demonstrate improved balance by maintaining tandem stance for 30s with each foot placed forward, on an even surface, without upper extremity support to demonstrate a reduced fall risk. 5. Patient will report a 48 hour average pain of 5/10 on the numeric pain rating scale to demonstrate improvement in quality of life and increased functional capacity. 6. Pt will demonstrate HEP compliance by completing prescribed HEP 4-5x/week. PT Laundry Manager Patient In 8 weeks: Goals 1. Patient will improve strength of R hip complex to 4+ /5 globally to improve gait mechanics, improve static/ dynamic balance and to decrease fall risk. . 2. Patient will report a 48 hour average pain of 2-3/10 on the numeric pain rating scale to demonstrate improvement in quality of life and increased functional capacity. 4. Pt will be able to ascend/descend a flight of stairs with reciprocal stepping pattern and no hand rail to demonstrate improvements in home and community mobility . 5. Patient will demonstrate improved balance by performing tandem walking on an unstable surface for 10 feet without loss of balance or needed assistant hall director to demonstrate a reduced fall risk and improved community ambulation. 6. Patient will be able to stand/walk for 1 hour at one time to demonstrate improved community ambulation for activities, such as grocery shopping. 7. Pt will perform 10 [id number] from a standard chair without upper extremity assistance to demonstrate improved in-home mobility, decreased fall risk and improved LE strength. Outpatient Therapy Plan of Care Treatment Plan May Include Therapeutic Exercise Yes Including Home Exercise Program Manual Therapy Yes Techniques Neuromuscular Re- Yes education Therapeutic Yes Activities to Return to Previous Functional/Work Level Gait Training Yes ADL/Self Care Yes Education Thermal Modalities Yes Electrical Yes Stimulation Massage Yes Manual Lymphatic Yes Drainage Eval/Re-Eval Yes Frequency Times per week 2 Duration Number of Weeks 8 Addendums This patient is a No candidate for social or vocational rehab ? Patient/Guardian Yes verbally acknowledges understanding of treatment program and consents to further treatment? Patient/Guardian Yes verbally acknowledges understanding of diagnosis, prognosis and goals for treatment? Eval Complexity PT Charges 91769 - Moderate Complexity Shoulder/Elbow Eval Shoulder Objective Measurements Elbow Objective Measurements PHYSICIAN CERTIFICATION: I certify the specified therapy services for Leonor Reardon are required, authorized, and reviewed every 30 days.
== END 2025-02-25 23:59 | disposition home or self-care (01) ==
LOC: PT 08:43
PROVIDERS: PCP Internal Medicine; Visit Provider Student in an Organized Health Care Education/Training Program
DX: M17.11 Unilateral primary osteoarthritis, right knee (principal); M25.561 Pain in right knee
CPT/HCPCS: 97162